=== PATIENT | male | born 1945 | race Caucasian/White ===

== ENCOUNTER → 2020-09-23 11:04 | Outpatient (BNVA) | payer MEDICARE, SELFPAY | PROVIDERS: PCP Internal Medicine; Referring Provider Internal Medicine; Visit Provider Internal Medicine | DX: J44.9 Chronic obstructive pulmonary disease, unspecified (principal); F17.200 Nicotine dependence, unspecified, uncomplicated; Z71.6 Tobacco abuse counseling | CPT/HCPCS: 99212; 99213 ==

== ENCOUNTER → 2021-02-05 11:05 | Outpatient (BNVA) | payer MEDICARE, SELFPAY | PROVIDERS: PCP Internal Medicine; Visit Provider Internal Medicine | DX: Z13.89 Encounter for screening for other disorder (principal) | CPT/HCPCS: 99212 ==

== ENCOUNTER → 2021-08-13 11:29 | Outpatient (BNVA) | payer MEDICARE, SELFPAY | PROVIDERS: PCP Internal Medicine; Visit Provider Internal Medicine | DX: J44.9 Chronic obstructive pulmonary disease, unspecified (principal); F17.210 Nicotine dependence, cigarettes, uncomplicated | CPT/HCPCS: 99212 ==

== ENCOUNTER 2021-08-17 09:18 | Outpatient (REF) | payer MEDICARE, SELFPAY ==
[2021-08-17 11:27] LABS: MANUAL DIFF FLAG NO
[2021-08-17 11:40] LABS: Basophils Percent Auto 0.8 % (0-2); Eosinophils Absolute Auto 0.2 X10*3/uL (0.0-0.4); Eosinophils Percent Auto 4.9 % (0-4); Hematocrit 34.8 % (42-52); Hemoglobin 11.9 g/dl (14.0-18.0); Imm Gran Abs Auto 0.03 X10*3/uL (0.00-0.03); Imm Gran Pct Auto 0.6 % (0.0-0.4); Lymphocytes Absolute Auto 0.9 X10*3/uL (1.2-4.9); Lymphocytes Percent Auto 18.9 % (20-40); Mean Corpuscular HGB Conc 34.2 g/dl (31.0-36.0); Mean Corpuscular Hemoglobin 31.2 pg (27.0-33.0); Mean Corpuscular Volume 91.3 fL (80-98); Mean Platelet Volume 10.1 fL (9.4-12.4); Monocytes Absolute Auto 0.5 X10*3/uL (0.1-1.2); Monocytes Percent Auto 10.9 % (2-11); Neutrophils Absolute Auto 3.1 X10*3/uL (2.0-8.3); Neutrophils Percent Auto 63.9 % (45-73); Platelet Count 261 X10*3/uL (160-400); Red Blood Count 3.81 X10*6/uL (4.60-5.80); Red Cell Distribution Width 13.3 % (11.0-16.0); White Blood Count 4.9 X10*3/uL (4.8-10.8)
[2021-08-17 14:18] LABS: Alanine Aminotransferase 13 U/L (0-40); Alkaline Phosphatase 61 U/L (39-117); Anion Gap 14 (12-20); Aspartate Amino Transferase 20 U/L (5-37); Bilirubin Total 0.4 mg/dL (0.0-1.0); Blood Urea Nitrogen 6 mg/dL (9-16); Calcium 9.6 mg/dL (8.4-10.2); Carbon Dioxide 24 mmol/L (22-29); Chloride 95 mmol/L (96-108); Cholesterol 164 mg/dL; Estimated Glomerular Filt Rate > 60; Glucose Fasting 110 mg/dL (60-99); HDL Cholesterol 72 mg/dL; LDL Cholesterol Calculated 67 mg/dl; Sodium 128 mmol/L (135-145); Total Protein 6.5 g/dL (6.5-8.0); Triglycerides 125 mg/dL
[2021-08-17 14:43] LABS: TSH reflex Free T4 2.65 uIU/mL (0.32-4.0); Vitamin D 25-OH Total 32.7 ng/mL (>30)
== END 2021-08-17 09:19 | disposition home or self-care (01) ==
LOC: HO.HMGCLDS 09:18
PROVIDERS: PCP Internal Medicine; Visit Provider Internal Medicine
DX: E78.00 Pure hypercholesterolemia, unspecified (principal); I10 Essential (primary) hypertension; E55.9 Vitamin D deficiency, unspecified
CPT/HCPCS: 36415; 80053; 80061; 82306; 84443; 85025

== ENCOUNTER 2021-08-18 | Outpatient (REF) | payer MEDICARE, SELFPAY ==
[2021-08-18 11:30] LABS: Appearance Urine CLEAR; Color Urine YELLOW; Glucose Urine UA NEG (NEG); Leukocyte Esterase Urine NEG (NEG); Nitrite Urine NEG (NEG); Urine Blood NEG (NEG); Urine Ketones NEG (NEG); Urine Protein NEG (NEG-TRACE)
== END 2021-08-18 00:01 | disposition home or self-care (01) ==
LOC: HO.HMGCLNP
PROVIDERS: Visit Provider Internal Medicine
DX: I10 Essential (primary) hypertension (principal)
CPT/HCPCS: 81003

== ENCOUNTER → 2022-02-09 10:41 | Outpatient (BNVA) | payer MEDICARE, SELFPAY | PROVIDERS: PCP Internal Medicine; Visit Provider Internal Medicine | DX: J44.9 Chronic obstructive pulmonary disease, unspecified (principal); Z79.899 Other long term (current) drug therapy; Z87.891 Personal history of nicotine dependence | CPT/HCPCS: 99212 ==

== ENCOUNTER 2022-03-03 08:46 | Outpatient (REF) | payer MEDICARE, SELFPAY ==
[2022-03-03 11:23] LABS: MANUAL DIFF FLAG NO
[2022-03-03 11:38] LABS: Appearance Urine CLEAR; Color Urine YELLOW; Glucose Urine UA NEG (NEG); Leukocyte Esterase Urine NEG (NEG); Nitrite Urine NEG (NEG); Urine Blood NEG (NEG); Urine Ketones NEG (NEG); Urine Protein NEG (NEG-TRACE)
[2022-03-03 11:41] LABS: Basophils Absolute Auto 0.1 X10*3/uL (0.0-0.2); Basophils Percent Auto 0.7 % (0-2); Eosinophils Absolute Auto 0.5 X10*3/uL (0.0-0.4); Eosinophils Percent Auto 6.6 % (0-4); Hematocrit 36.6 % (42.0-52.0); Hemoglobin 11.7 g/dl (14.0-18.0); Imm Gran Abs Auto 0.05 X10*3/uL (0.00-0.03); Imm Gran Pct Auto 0.6 % (0.0-0.4); Lymphocytes Absolute Auto 1.2 X10*3/uL (1.2-4.9); Lymphocytes Percent Auto 15.2 % (20-40); Mean Corpuscular Hemoglobin 29.2 pg (27.0-33.0); Mean Corpuscular Volume 91.3 fL (80.0-98.0); Mean Platelet Volume 10.1 fL (9.4-12.4); Monocytes Absolute Auto 0.9 X10*3/uL (0.1-1.2); Monocytes Percent Auto 10.9 % (2-11); Neutrophils Absolute Auto 5.4 x10*3/uL (2.0-8.3); Platelet Count 376 X10*3/uL (160-400); Red Blood Count 4.01 X10*6/uL (4.60-5.80); Red Cell Distribution Width 12.3 % (11.0-16.0); White Blood Count 8.2 X10*3/uL (4.8-10.8)
[2022-03-03 11:58] LABS: Alanine Aminotransferase 11 U/L (0-40); Albumin Level 4.1 g/dL (3.5-5.0); Alkaline Phosphatase 82 U/L (39-117); Anion Gap 14 (12-20); Aspartate Amino Transferase 18 U/L (5-37); Bilirubin Total 0.4 mg/dL (0.0-1.0); Blood Urea Nitrogen 9 mg/dL (9-16); Calcium 9.9 mg/dL (8.4-10.2); Carbon Dioxide 27 mmol/L (22-29); Chloride 94 mmol/L (96-108); Cholesterol 174 mg/dL; Estimated Glomerular Filt Rate > 60; Glucose Fasting 107 mg/dL (60-99); HDL Cholesterol 60 mg/dL; LDL Cholesterol Calculated 86 mg/dl; Potassium 4.5 mmol/L (3.3-5.1); Sodium 130 mmol/L (135-145); Total Protein 7.2 g/dL (6.5-8.0); Triglycerides 140 mg/dL
== END 2022-03-03 08:47 | disposition home or self-care (01) ==
LOC: HO.HMGCLDS 08:46
PROVIDERS: Visit Provider Internal Medicine
DX: I10 Essential (primary) hypertension (principal); E78.00 Pure hypercholesterolemia, unspecified; E55.9 Vitamin D deficiency, unspecified
CPT/HCPCS: 36415; 80053; 80061; 81003; 82306; 84443; 85025

== ENCOUNTER 2022-07-06 10:49 | Outpatient (REF) | payer MEDICARE, SELFPAY ==
--- NOTE | ~2022-07-06 | CT_ITS ---
EXAMINATION: CT HEAD WITHOUT CONTRAST CLINICAL INFORMATION: Hyperosmolality. Hyponatremia. COMPARISON: None. TECHNIQUE: Contiguous axial imaging was performed from the skull base to vertex without intravenous administration of contrast. This CT examination was performed using dose optimization techniques as appropriate, variously including the following: *Automated exposure control *Adjustment of mA and/or kV according to patient size (this includes techniques or standardized protocols for targeted exams where dose is matched to indication/reason for exam; i.e. extremities or head) *Use of iterative reconstruction technique DLP: 727 mGy-cm. FINDINGS: There is no evidence of acute intracranial hemorrhage or territorial infarction. No abnormal mass effect or midline shift is seen. Cole to white matter differentiation is well preserved. No extra-axial fluid collections are identified. The lateral ventricles are symmetrical in size and configuration without enlargement. The osseous structures and soft tissues are normal. The mastoid air cells and visualized portions of the paranasal sinuses are well aerated. CT/CT head/brain wo con IMPRESSION: No acute intracranial process seen. Age-related cerebral volume loss with chronic small vessel ischemic changes in both cerebral hemispheres.
== END 2022-07-06 10:50 | disposition home or self-care (01) ==
LOC: HO.CT 10:49
PROVIDERS: PCP Internal Medicine; Visit Provider Physician Assistant
DX: E87.1 Hypo-osmolality and hyponatremia (principal)
CPT/HCPCS: 70450

== ENCOUNTER → 2022-08-25 13:40 | Outpatient (BNVA) | payer MEDICARE, SELFPAY | PROVIDERS: PCP Internal Medicine; Visit Provider Internal Medicine | DX: J44.9 Chronic obstructive pulmonary disease, unspecified (principal); R05.3 Chronic cough; U09.9 Post COVID-19 condition, unspecified; Z77.22 Contact with and (suspected) exposure to environmental tobacco smoke (acute) (chronic); Z87.891 Personal history of nicotine dependence | CPT/HCPCS: 99212 ==

== ENCOUNTER → 2022-10-26 13:27 | Outpatient (BNVA) | payer MEDICARE, SELFPAY | PROVIDERS: PCP Internal Medicine; Visit Provider Internal Medicine | DX: J44.9 Chronic obstructive pulmonary disease, unspecified (principal); R05.3 Chronic cough; R00.0 Tachycardia, unspecified; U09.9 Post COVID-19 condition, unspecified; Z87.891 Personal history of nicotine dependence | CPT/HCPCS: 99212 ==

== ENCOUNTER → 2023-02-22 13:46 | Outpatient (BNVA) | payer MEDICARE, SELFPAY | PROVIDERS: PCP Internal Medicine; Visit Provider Internal Medicine | DX: J44.9 Chronic obstructive pulmonary disease, unspecified (principal); F17.200 Nicotine dependence, unspecified, uncomplicated | CPT/HCPCS: 99212 ==

== ENCOUNTER 2023-04-12 14:16 | Outpatient (AMB) | payer MEDICARE, SELFPAY ==
[2023-04-12 14:21] VITALS: BP 118/78; PULSE 80; O2SAT 93; BMI 17.7
--- NOTE | 2023-04-12 14:21 | MHC.PC.OV ---
Vital Signs 04/12/23 14:21 Height 5 ft 8 in Weight 116 lb 4 oz BMI 17.7 BP 118/78 Blood Pressure Location Lt brachial Position Sitting Pulse 80 Pulse Source Pulse Oximeter Pulse Oximetry (%) 93 Oxygen Delivery Method Room Air Intake Visit Reasons: SIADH, COPD Intake Note: Patient is here for a follow up on COPD abd SIADH. Family Independence Case Manager Required: No Accompanied by: Spouse Allergies aspirin [ASPIRIN] Allergy (Intermediate, Verified 02/02/24 04:07) SWELLING, hives Medication List - Last Reconciled 04/16/24 by Tariq Parikh MD albuterol sulfate 90 mcg/actuation (Ventolin HFA) 2 puffs PO QID PRN atorvastatin 40 mg PO BEDTIME 90 days Breo Ellipta 200-25 mcg/dose (fluticasone furoate-vilanterol) 1 ea PO DAILY NS cholecalciferol (vitamin D3) 25 mcg PO DAILY clopidogrel (Plavix) 75 mg PO DAILY 90 days hydroxyzine HCl 25 mg PO TID PRN 30 days ipratropium-albuterol 0.5 mg-3 mg(2.5 mg base)/3 mL 3 mL inhalation QID pantoprazole 40 mg PO DAILY prednisone 5 mg PO Q OTHER DAY Tobacco use date assessed: 04/12/23 Fall risk assessment: 1 Fall in past year HPI SIADH, COPD HPI Details Patient comes in today for his follow-up visit States that he feels okay but has been having problems sleeping at night for a few weeks now He denies any headaches or dizziness Denies any chest pains, no increased shortness of breath No nausea /vomiting, no abdominal pain No change in bowel habits noted He has not had any follow-up labs done recently [facility] Medical History Tachycardia determined by examination of pulse History of smoking at least 1 pack per day for at least 30 years 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) Insomnia Osteoporosis GERD without esophagitis Benign essential hypertension Smoker Smoker COPD (chronic obstructive pulmonary disease) Social History Household Members: Spouse and Family Household Members Other:: and grandson Housing: House Do you presently have visiting nurse or other home services: No Alcohol intake: current Alcohol intake frequency: 0-2 drinks per day Alcohol type: beer Patient Tobacco Use Status: Former Tobacco user e-Cigarette/Vaping Use: Never Used Second Hand Smoke Exposure: No service: No Current occupational status: retired Cognitive needs: No Hearing needs: No Vision needs: No Questionnaire PHQ-9 Over the last 2 weeks, how often have you been bothered by any of the following problems? 1. Little interest or pleasure in doing things: not at all 2. Feeling down, depressed, or hopeless: not at all 3. Trouble falling or staying asleep, or sleeping too much: not at all 4. Feeling tired or having little energy: not at all 5. Poor appetite or overeating: not at all 6. Feeling bad about yourself - or that you are a failure or have let yourself or your family down: not at all 7. Trouble concentrating on things, such as reading the newspaper or watching television: not at all 8. Moving or speaking so slowly that other people could have noticed. Or the opposite - being so fidgety or restless that you have been moving around a lot more than usual: not at all 9. Thoughts that you would be better off or of hurting yourself in some way: not at all Total score: 0 Depression Screening Interpretation: Negative [id number] - PHQ-9 Billing: Yes Source: Developed by Drs. Tushar Vargas, Marybeth Shah, Korey Bauer and colleagues, with an educational lila from [employer]. Thrive Questionnaire Date Thrive assessed: 04/12/23 I am a: Patient What is your living situation today?: I have a steady place to live Within the past 12 months, did the food you bought not last and you didn't have the money to get more?: Never true Within the past 12 months, did you worry whether your food would run out before you got money to buy more?: Never true Do you have trouble paying for medicines?: No Do you have trouble getting transportation to medical appointments?: No Do you have trouble paying your heating and electricity bill?: No Do you have trouble taking care of your child, family member or friend?: No Do you have trouble with day-to-day activities such as bathing, preparing meals, shopping, managing finances, etc.?: No Are you currently unemployed and looking for a job?: No Are you interested in more education?: No Please select the resources that you would like help with: None Currently or been in a relationship where the following occur: no concerns reported AUDIT C Alcohol Use Questionnaire (AUDIT-C) 1. How often do you have a drink containing alcohol?: 4 or more times a week 2. How many drinks containing alcohol do you have on a typical day when you are drinking?: 1 or 2 3. How often do you have six or more drinks on one occasion?: Never Total Score: 4 Score Reviewed/Action Taken: Yes ALEXUS-7 AMB Questionnaire ALEXUS-7 Date ALEXUS - 7 assessed: 04/12/23 Feeling nervous, anxious, or on edge: 0 = Not at all Not being able to stop or control worryin = Not at all Worrying too much about different things: 0 = Not at all Trouble relaxin = Not at all Being so restless that it is hard to sit still: 0 = Not at all Becoming easily annoyed or irritable: 0 = Not at all Feeling afraid as if something awful might happen: 0 = Not at all Total ALEXUS-7 score (0-4 normal; 5-9 mild; 10-14 moderate; 15-21 severe): 0 Source: Developed by Drs. Tushar Vargas, Marybeth Shah, Korey Bauer and colleagues, with an educational lila from [employer]. Review of Systems Const Denies chills, Reports difficulty sleeping, Reports fatigue, Denies fever(s) and Denies headache(s) ENT Denies dysphagia, Denies dizziness, Denies otalgia, Denies headache(s), Denies odynophagia and Denies sore throat Card Denies chest pain, Denies palpitations and Reports dyspnea on exertion (mild) Resp Denies chest congestion, Denies cough, Reports dyspnea on exertion (mild) and Denies wheezing GI Denies abdominal pain, Denies constipation, Denies dysphagia, Denies heartburn, Denies diarrhea, Denies nausea, Denies odynophagia and Denies vomiting Denies dysuria, Denies nocturia and Denies urinary frequency Musc Denies arthralgias and Reports stiffness Skin/Breast Denies rash Neuro Denies dizziness and Denies headache(s) Endo Reports fatigue and Denies palpitations Aller/Immun Denies wheezing Physical exam (Primary Care) Vital Signs: Last Vital Signs Pulse 80 04/12/23 14:21 BP 118/78 04/12/23 14:21 Pulse Ox 93 04/12/23 14:21 Oxygen Delivery Method Room Air 04/12/23 14:21 BMI result Body Mass Index 17.7 Tobacco/Smoking Status: Tobacco use Status Tobacco use date assessed 04/12/23 04/12/23 14:33 Patient Tobacco Use Status Former Tobacco user 04/12/23 14:21 e-Cigarette/Vaping Use Never Used 04/12/23 14:33 PHQ-9: PHQ-9 Score PHQ-9: Total score 0 04/12/23 15:22 Depression Screening Interpretation: Negative Thrive Assessment: Date of Thrive Assessment Date Thrive assessed 04/12/23 04/12/23 14:33 Currently or been in a relationship where the following occur: no concerns reported Const General: no acute distress and alert HENMT Ears: TM's normal bilaterally and EAC's normal Throat: Yes posterior oropharynx normal and Yes tonsils normal (no TP congestion noted) Neck Neck: Yes no lymphadenopathy and Yes supple Thyroid: Thyroid normal Resp Auscultation: no rales, rhonchi (scattered) throughout, no wheezes and diminished lung sounds bilateral Cardio Rate: regular rate Rhythm: regular rhythm Heart sounds: no murmurs GI Palpation (GI): Soft to palpation and nontender Auscultation: normal bowel sounds General: Yes no CVA tenderness Back/Spine/Pelvis Back: no CVA tenderness Skin Rashes: no rashes Extrem General: Yes no clubbing, cyanosis or edema Assessment and Plan Assessment & Plan (1) COPD (chronic obstructive pulmonary disease): Comment: THIS GENTLEMAN HAS ADVANCED CHRONIC OBSTRUCTIVE PULMONARY DISEASE , DUE TO HIS LIFELONG SMOKING. IT IS RELATIVELY STABLE AT PRESENT. LUNGS ARE CLEAR AND WELL AERATED. 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): Code(s): E22.2 - Syndrome of inappropriate secretion of antidiuretic hormone Plan: Serum sodium was at 128 mmol/L on his labs done back in July 2021 Was not able to get his follow up labs done prior to today's visit - states that he will try to get them done later this week Reinforced fluid restriction Continue Sodium Chloride tablet 1 gm TID Follow up with nephrology as scheduled (3) Benign essential hypertension: Code(s): I10 - Essential (primary) hypertension Plan: Reinforced systolic BP goal of at least 140 mm or less Continue Lisinopril 5 mg QD Will recheck his labs in 6 months for follow up (4) GERD without esophagitis: Code(s): K21.9 - Gastro-esophageal reflux disease without esophagitis Plan: Dietary restrictions reinforced Continue Omeprazole 20 mg QD (5) Osteoporosis: Comment: BMD done back in January 2018 showed (+) osteoporosis, with a t-score of -3.4 in the femoral neck area Code(s): M81.0 - Age-related osteoporosis without current pathological fracture Qualifiers: Osteoporosis type: age-related Presence of current pathological fracture: without current pathological fracture Qualified Code(s): M81.0 - Age-related osteoporosis without current pathological fracture Plan: Fall precautions reinforced Continue Vitamin D3 1000 units QD and oral calcium supplements daily (6) Insomnia: Code(s): G47.00 - Insomnia, unspecified Qualifiers: Insomnia type: unspecified Qualified Code(s): G47.00 - Insomnia, unspecified Plan: Sleep hygiene reinforced Used to take Trazodone - will start him back on Trazodone 100 mg Q HS PRN Plan Follow up in 6 months Orders: Orders Comprehensive [place]. Panel Fast 04/12/23 E78.00 - Pure hypercholesterolemia, unspecified, J44.9 - Chronic obstructive pulmonary disease, unspecified Lipid Panel 04/12/23 E78.00 - Pure hypercholesterolemia, unspecified, J44.9 - Chronic obstructive pulmonary disease, unspecified Complete Blood Count Auto Diff 04/12/23 I10 - Essential (primary) hypertension, J44.9 - Chronic obstructive pulmonary disease, unspecified TSH reflex Free T4 04/12/23 E78.00 - Pure hypercholesterolemia, unspecified, J44.9 - Chronic obstructive pulmonary disease, unspecified UA CC w/rflx Micro + Cult 04/12/23 R30.0 - Dysuria, J44.9 - Chronic obstructive pulmonary disease, unspecified Vitamin D 25-OH Total 04/12/23 E55.9 - Vitamin D deficiency, unspecified, J44.9 - Chronic obstructive pulmonary disease, unspecified Hemoglobin A1c 04/12/23 J44.9 - Chronic obstructive pulmonary disease, unspecified, R73.9 - Hyperglycemia, unspecified Complete Blood Count Auto Diff 6 Months I10 - Essential (primary) hypertension Comprehensive [place]. 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
== END 2023-04-12 15:26 | disposition home or self-care (01) ==
LOC: HO.HMGH 14:16
PROVIDERS: PCP Internal Medicine; Visit Provider Internal Medicine
DX: J44.9 Chronic obstructive pulmonary disease, unspecified (principal); E22.2 Syndrome of inappropriate secretion of antidiuretic hormone; I10 Essential (primary) hypertension; K21.9 Gastro-esophageal reflux disease without esophagitis; M81.0 Age-related osteoporosis without current pathological fracture; G47.00 Insomnia, unspecified
CPT/HCPCS: 99499

== ENCOUNTER 2023-07-06 14:20 | Outpatient (AMB) | payer MEDICARE, SELFPAY ==
[2023-07-06 14:25] VITALS: BP 120/50; PULSE 129; O2SAT 94; BMI 17.3
--- NOTE | 2023-07-06 14:25 | MHC.OFFVIS ---
Intake Vital Signs 07/06/23 14:25 Height 5 ft 8 in Weight 114 lb BMI 17.3 BP 120/50 L Blood Pressure Location Rt brachial Position Sitting Pulse 129 H Pulse Source Pulse Oximeter Pulse Oximetry (%) 94 Oxygen Delivery Method Room Air Intake Visit Reasons: COPD Intake Note: pt is here for follow up, breathing is not good, he has fallen a couple of times, his pulse was very fast. Beam Worker Required: No Allergies aspirin [ASPIRIN] Allergy (Intermediate, Verified 07/06/23 14:29) SWELLING, hives Medication List - Last Reconciled 07/06/23 by Gabriela Escobar MD albuterol sulfate 2.5 mg (6 mL) inhalation QID 30 days Breo Ellipta 200-25 mcg/dose (fluticasone furoate-vilanterol) 1 inh PO DAILY NS cholecalciferol (vitamin D3) 25 mcg PO DAILY ipratropium bromide 2.5 mL inhalation QID 30 days ipratropium-albuterol 0.5 mg-3 mg(2.5 mg base)/3 mL 3 mL inhalation QID lisinopril 5 mg PO DAILY omeprazole 20 mg PO DAILY 90 days prednisone 5 mg PO Q OTHER DAY trazodone 100 mg PO BEDTIME PRN 30 days Ventolin HFA 90 mcg/actuation (albuterol sulfate) 2 puffs PO QID NS HPI COPD HPI Details THIS 77 YEARS OLD GENTLEMAN COMES FOR FOLLOW-UP AFTER 4 MONTHS. IN GENERAL HE REMAINS WEAK, GAS TIRED EASILY AFTER WALKING. MENTALLY SLOW AND SLIGHTLY FORGETFUL. BUT HE HAS HAD NO BOUTS OF COUGH OR WHEEZING. CONTINUES TO USE BREO 200-251 INHALATION DAILY. HE WAS USING DUONEB UPDRAFTS 3 TIMES A DAY REGULARLY. COMBINATION OF IPRATROPIUM AND ALBUTEROL SOLUTION IS NOT AVAILABLE AT THE PHARMACY, SO I HAVE PRESCRIBED IPRATROPIUM SOLUTION TO BE USE Q 6 HOURS WHILE AWAKE. HE DOES HAVE ALBUTEROL HFA ON HAND, AND SUPPOSED TO USE IT P.R.N. WHEN OUTDOORS. TODAY BEFORE COMING OUT OF THE HOUSE HE DID USE ALBUTEROL 2 PUFFS, AFTER PARKING THE CAR IN THE PARKING LOT [facility], AND HE COMES IN THE EXAMINATION ROOM HIS HEART RATE IS NOTED TO BE FAST. HE DENIES ANY PALPITATIONS CHEST PAIN, OR LIGHTHEADED FEELING. 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) Tachycardia determined by examination of pulse Social History Housing: House Alcohol intake: current Alcohol intake frequency: 0-2 drinks per day Alcohol type: beer Patient Tobacco Use Status: Former Tobacco user e-Cigarette/Vaping Use: Never Used Second Hand Smoke Exposure: Yes service: No Current occupational status: retired Cognitive needs: No Hearing needs: No Vision needs: No Review of Systems Const Denies chills, Denies fatigue, Denies fever(s) and Denies headache(s) ENT Denies headache(s), Denies sinus pain and Denies sore throat Card Denies chest pain, Denies palpitations and Denies dyspnea Resp Denies cough and Denies dyspnea GI Denies abdominal pain, Denies constipation, Denies heartburn, Denies diarrhea, Denies nausea and Denies vomiting Denies dysuria and Denies nocturia Neuro Denies headache(s) Endo Denies fatigue and Denies palpitations Physical Exam Vital Signs: Last Vital Signs Pulse 129 H 07/06/23 14:25 BP 120/50 L 07/06/23 14:25 Pulse Ox 94 07/06/23 14:25 Oxygen Delivery Method Room Air 07/06/23 14:25 BMI result Body Mass Index 17.3 Const Other: He is of a thin build and appears comfortable and stable General: comfortable, no acute distress, alert and awake Orientation/consciousness: patient oriented x3 HEENT Head: Yes normal to inspection General nose exam: No nasal polyps present and No nasal discharge present Face and sinus: Yes sinuses nontender Mouth: oropharynx normal Throat: Yes posterior oropharynx normal Eyes General: appearance normal, both eyes and all related structures Neck Neck: Yes normal visual inspection, Yes no lymphadenopathy, Yes trachea midline and Yes no JVD Thyroid: Thyroid normal Chest Chest palpation & inspection: normal inspection of the chest, normal palpation of entire chest wall and no tenderness Resp Other: Percussion note hyper-resonant, breath sounds are distant with prolonged expiratory phase. No wheezes or rhonchi , and no crepitations are heard. Cardio Palpation: normal PMI Rate: regular rate and tachycardic (HR .ON WALKING IN 129 DURING EXAM SETTLED DOWN TO 118) Rhythm: regular rhythm Heart sounds: no gallops and no murmurs GI Palpation (GI): Soft to palpation, nontender, No hepatosplenomegaly present and no masses Auscultation: normal bowel sounds Back/Spine/Pelvis Thoracic/Lumbar Spine: thoracic and lumbar spine normal to inspection and thoraco-lumbar ROM limited Skin General skin exam: no rashes or lesions noted Neuro General: patient oriented x3 and no focal motor deficits Cranial nerves: Yes CN's II-XII intact bilaterally Extrem General: Yes normal to inspection, Yes no clubbing, cyanosis or edema, Yes no calf tenderness and Yes other (Legs are very thin with some muscular wasting.) Psych Appearance: grossly normal Speech and movement: Normal speech and movement present Assessment & Plan Assessment & Plan (1) COPD (chronic obstructive pulmonary disease): Comment: HE HAS MODERATELY ADVANCED CHRONIC OBSTRUCTIVE PULMONARY DISEASE,BUT IT REMAINS VERY STABLE. TX: ADVISED TO CONTINUE USING: BREO -200 1 INHALATION DAILY DUO NEB UDs QID , ( script renewed ) VENTOLIN 2 PUFFS Q 6 HOURS ONLY P.R.N..( USES ONCE OR TWICE A DAY ) ( Script renewed ) PREDNISONE 5 MG ON ALTERNATE DAYS Code(s): J44.9 - Chronic obstructive pulmonary disease, unspecified Qualifiers: COPD type: unspecified COPD Qualified Code(s): J44.9 - Chronic obstructive pulmonary disease, unspecified (2) History of smoking at least 1 pack per day for at least 30 years: Comment: HE DID HAVE HISTORY OF SMOKING FOR MORE THAN 30 YEARS BUT LUCKILY QUIT 2 YEARS AGO. Code(s): Z87.891 - Personal history of nicotine dependence (3) Tachycardia determined by examination of pulse: Comment: HEART RATE RELATIVELY FAST, PROBABLY CONTRIBUTED BY USING ALBUTEROL INHALER BEFORE COMING OUT OF THE HOUSE. AND NOW WALKING FROM THE PARKING LOT TO THE OFFICE. IT IS SETTLING DOWN SLOWLY. Code(s): R00.0 - Tachycardia, unspecified Coding Level of Care Code Est Pt Level 3 (61502) Diagnoses COPD (chronic obstructive pulmonary disease) J44.9 COPD type: unspecified COPD History of smoking at least 1 pack per day for at least 30 years Z87.891 Tachycardia determined by examination of pulse R00.0
== END 2023-07-06 14:44 | disposition home or self-care (01) ==
PROVIDERS: PCP Internal Medicine; Visit Provider Internal Medicine
DX: J44.9 Chronic obstructive pulmonary disease, unspecified (principal); Z87.891 Personal history of nicotine dependence; R00.0 Tachycardia, unspecified
CPT/HCPCS: 99213

== ENCOUNTER → 2023-07-06 14:20 | Outpatient (BNVA) | payer MEDICARE, SELFPAY | PROVIDERS: PCP Internal Medicine; Visit Provider Internal Medicine | DX: J44.9 Chronic obstructive pulmonary disease, unspecified (principal); R00.0 Tachycardia, unspecified; Z87.891 Personal history of nicotine dependence | CPT/HCPCS: 99212 ==

== ENCOUNTER 2023-09-09 17:30 | Inpatient (IN) | payer MEDICARE, SELFPAY ==
--- NOTE | ~2023-09-09 | XR_ITS ---
EXAMINATION: XR CHEST CLINICAL INFORMATION: Weakness. COMPARISON: 03/08/2017. TECHNIQUE: Frontal view of the chest was obtained. FINDINGS: The cardiomediastinal silhouette is normal. There is bilateral perihilar increased markings/bronchiectasis/bronchial thickening. There is a right upper lobe opacity. The lung carmona appear to be generally hyperinflated and hyperlucent. The bony structures are osteopenic. The soft tissues are unremarkable XR/XR chest 1V IMPRESSION: There appears to be emphysema/COPD. Bilateral perihilar increased markings/bronchial thickening/bronchiectasis probably related to COPD. Small right upper lobe opacity possibly infiltrate or scar/atelectasis.
--- NOTE | ~2023-09-09 | CT_ITS ---
EXAMINATION: CT ANGIOGRAM HEAD CT ANGIOGRAM NECK CLINICAL INFORMATION: Reason for Exam left sided weakness 24 hours ago COMPARISON: None. TECHNIQUE: Test bolus sequences followed by intravenous administration 70 mL of Omnipaque 350. Helical imaging was performed in the axial plane from the aortic arch to the skull vertex. Delayed postcontrast imaging of the head was also performed. The data was processed at the ophthalmic technologist's workstation for generation of MIP sequences. Angled MIPs and volume rendered reformatted images were also generated at an offline 3D workstation. Stenoses are assessed in accordance with Mcfarlane et al. Quantification of Carotid Stenosis on CT Angiography. AJR 2006. 27(1):13-19. [address] CT examination was performed using dose optimization techniques as appropriate, variously including the following: *Automated exposure control *Adjustment of mA and/or kV according to patient size (this includes techniques or standardized protocols for targeted exams where dose is matched to indication/reason for exam; i.e. extremities or head) *Use of iterative reconstruction technique DLP: 2105.93 mGy-cm FINDINGS: CT HEAD: Stable moderate global cerebral volume loss. Patchy periventricular and deep white matter hypoattenuation is nonspecific but most suggestive of moderate chronic microangiopathy, unchanged. No territorial loss of priest-white differentiation. No acute intracranial hemorrhage or extra-axial fluid collection. No mass lesion, significant mass effect, or herniation pattern. No pathologic intra-axial enhancement or regional oligemia. The orbits are grossly normal. Paranasal sinuses and mastoid air cells are well aerated. Osseous structures are intact. CTA HEAD: No hemodynamically significant stenosis or occlusion in the anterior or posterior circulation. Calcific plaque along the bilateral carotid siphons with mild multifocal stenosis of the cavernous and supraclinoid segments. No aneurysms and no high flow vascular malformations. 1.4 mm infundibular origin of the right posterior communicating artery arising from the communicating right ICA. Timing of the contrast bolus allows assessment of the major dural venous sinuses, which all opacify normally CTA NECK: Classic 3 vessel branching pattern of the aortic arch. Moderate partially calcified atherosclerotic disease of the aortic arch and great vessel origins. Origins of the great vessels are widely patent. The common carotid arteries are widely patent. Densely calcified atherosclerotic plaque at the bilateral carotid bifurcations contributes to mild (less than 50%) stenosis of the right greater than left ICA origins. The left vertebral artery is dominant. The vertebral artery ostia are widely patent. Both vertebral arteries are widely patent throughout their extracranial cervical course, apart from uncovertebral and facet joint hypertrophy impinging upon and mildly narrowing the left C2 vertebral artery at the level of C3-C4. CT NECK: The patient is edentulous with maxillary dentures in place. Somewhat heterogeneous thyroid gland. New partially imaged thick walled air-filled cavities within the dependent portions of the right greater than left lungs containing thick traversing septae with new adjacent patchy consolidation in the right lung apex, which could reflect sequela of prior/current infection and would be better diagnostically assessed on dedicated chest CT. Clustered right supraclavicular lymph nodes, one which is pathologically enlarged measuring 1.2 cm. Right level 5 lymph node measuring 1.1 cm demonstrating abnormal rounded morphology. Progressive partially imaged right hilar lymphadenopathy/perihilar soft tissue contiguous with parenchymal disease that encases the right upper lobe pulmonary arterial branches and increased size of precarinal lymph node measuring 1.2 cm in short axis, previously partially obscured from beam hardening artifact. Multilevel advanced cervical spondylosis. CT/CT angio head neck IMPRESSION: 1. No acute intracranial findings. Stable moderate global volume loss and moderate chronic microangiopathy. 2. No acute arterial occlusion or hemodynamically significant stenosis within the head or neck. Atherosclerosis contributes to mild (less than 50%) stenosis of the right greater than left ICA origins. 3. New partially imaged thick walled air-filled cavities within the dependent portions of the right greater than left lungs containing thick traversing septae with new adjacent patchy consolidation in the right lung apex, which could reflect sequela of prior/current infection. Progressive partially imaged right hilar lymphadenopathy/perihilar soft tissue contiguous with parenchymal disease encasing right upper lobe pulmonary arterial branches and increased mediastinal adenopathy. Further evaluation of these findings with dedicated chest CT is advised. 4. Nonspecific clustered right supraclavicular lymph nodes, one which is pathologically enlarged measuring 1.2 cm and right level 5 lymphadenopathy measuring 1.1 cm demonstrating abnormal rounded morphology. No superficial pharyngeal mucosal mass or laryngeal lesion identified. Findings were communicated to Dr Valera on 09/09/2013 at 8:00 PM.
--- NOTE | ~2023-09-09 | MR_ITS ---
EXAMINATION: MR BRAIN WITHOUT CONTRAST CLINICAL INFORMATION: Left-sided weakness COMPARISON: CTA head and neck 09/09/2023 TECHNIQUE: Multiplanar multisequence MR imaging of the brain was obtained without intravenous contrast. FINDINGS: There is no acute infarct on diffusion-weighted imaging. There is no intracranial hemorrhage on iron-sensitive imaging. No extra-axial collection or mass effect/herniation. Scattered periventricular and deep white matter T2 FLAIR hyperintensities consistent with mild underlying microangiopathy. No hydrocephalus. Mild to moderate generalized volume loss with commensurate sulcal and ventricular prominence. The major flow voids at the skull base are preserved. The midline structures are normal. The cerebellar tonsils are normally positioned. The craniocervical junction is normal. Marrow signal is within normal limits. The visualized soft tissues are without significant abnormality. No signal abnormality within the paranasal sinuses or within the mastoid air cells. MR/MR head/brain wo con IMPRESSION: No acute infarct or other acute intracranial abnormality.
--- NOTE | ~2023-09-09 | CT_ITS ---
EXAMINATION: CT CHEST WITHOUT CONTRAST CLINICAL INFORMATION: Cavitary pneumonia. COMPARISON: CTA chest 02/14/2017 TECHNIQUE: Multidetector volumetric CT imaging of the chest was done. Axial MIP volume rendering provided. Sagittal and coronal reformatted images were obtained. This CT examination was performed using dose optimization techniques as appropriate, variously including the following: *Automated exposure control *Adjustment of mA and/or kV according to patient size (this includes techniques or standardized protocols for targeted exams where dose is matched to indication/reason for exam; i.e. extremities or head) *Use of iterative reconstruction technique DLP: 148 mGy-cm FINDINGS: LOCK EXPERT: Hyperinflated lungs. LUNGS: There is diffuse centrilobular and paraseptal emphysema. There is a large cavitary lesion surrounded by thick wall in right upper lobe adjacent to this cavitary area and medial aspect is a consolidation with air bronchogram right upper lobe likely chronic scarring with mild bronchiectasis and/or pneumonic infiltrate. Patchy airspace disease is seen in the right lower lobe posterior basal segment with adjacent nodular appearing densities seen. There is a cavitary lesion in the left lower lobe posterior basal segment with adjacent parenchymal opacity likely chronic scarring. There are small cavitary lesions and tree-in-bud appearance in the right middle lobe. Scattered pulmonary nodules are seen in the right middle lobe measuring 4-5 mm on axial slice 28/8. MEDIASTINUM: Thyroid lobes are symmetric and normal. The central trachea and the bronchi widely patent. There are reactionary lymph nodes in the precarinal space measuring 1.2 cm on axial slice 21/8. CORONARY ARTERY CALCIFICATION: None visualized on this study. PLEURA: There is small bilateral pleural effusions without calcified pleural plaques. AXILLA: No lymphadenopathy. UPPER ABDOMEN: Visualized liver, spleen, pancreas and bilateral adrenal glands are unremarkable. OSSEOUS STRUCTURES: No aggressive lytic or sclerotic process seen. CT/CT chest wo IV con IMPRESSION: 1. Diffuse centrilobular and paraseptal emphysema. 2. There is a large cavitary thick-walled lesion in the right upper lobe. Adjacent to this cavity is consolidation with air bronchogram in the right upper lobe likely chronic scarring with mild bronchiectasis and/or pneumonic infiltrate. 3. There is a cavitary lesion in the left lower lobe posterior basal segment with adjacent parenchymal opacity likely chronic scarring. The cavity appears septated. 4. There is patchy airspace disease in the right lower lobe posterior basal segment with adjacent nodular densities. 5. There are small bilateral pleural effusions. 6. There are reactionary lymph nodes in the precarinal space measuring 1.2 cm. Overall the findings have progressed since previous CTA chest 02/14/2017 with large cavitary thick-walled lesions in both lungs and a smaller cavitary lesions in the right middle lobe. Small pulmonary nodules seen previously are stable. There are multiple pulmonary nodules in the right middle lobe at this time. Atelectasis in the lingula seen previously has resolved. Fleischner guidelines were followed.
[2023-09-09 17:56] VITALS: BP 90/57; PULSE 110; RESP 17; TEMP 36.1; O2SAT 97; BMI 16.9
--- NOTE | 2023-09-09 17:57 | ED_ITS ---
HPI - General Adult General Chief complaint: Neuro Symptoms/Deficit Stated complaint: ?Stroke Time Seen by Provider: 09/09/23 18:24 Source: patient and family Mode of arrival: ambulatory Limitations: no limitations History of Present Illness HPI narrative: yesterday patient was lethargic, and he had left sided weakness. There was some confusion. This morning he was back to himself. Onset (ago): day(s) Severity: moderate Related Data Home Medications Medication Instructions Recorded Confirmed cholecalciferol (vitamin D3) 25 25 mcg PO DAILY 02/22/23 mcg (1,000 unit) capsule Previous Rx's Medication Instructions Recorded ipratropium 0.5 mg-albuterol 3 mg 3 ml inhalation QID #360 mL 12/07/22 (2.5 mg base)/3 mL nebulization soln omeprazole 20 mg capsule,delayed 20 mg PO DAILY 90 days #90 caps 02/14/23 release Ventolin HFA 90 mcg/actuation 2 puff PO QID #18 ea 04/18/23 aerosol inhaler (albuterol sulfate) trazodone 100 mg tablet 100 mg PO BEDTIME PRN insomnia 30 06/14/23 days #30 tabs lisinopril 5 mg tablet 5 mg PO DAILY #90 tabs 06/21/23 albuterol sulfate 1.25 mg/3 mL 2.5 mg (6 mL) inhalation QID 30 06/28/23 solution for nebulization days #720 mL ipratropium bromide 0.02 % 2.5 ml inhalation QID copd 30 days 06/28/23 solution for inhalation #300 mL Breo Ellipta 200 mcg-25 mcg/dose 1 inh PO DAILY #60 ea 07/11/23 powder for inhalation (fluticasone furoate-vilanterol) prednisone 5 mg tablet 5 mg PO Q OTHER DAY #14 tabs 08/02/23 Allergies Allergy/AdvReac Type Severity Reaction Status Date / Time aspirin [ASPIRIN] Allergy Intermediate SWELLING, Verified 07/06/23 14:29 hives Review of Systems 2 Review of Systems: Yes all other systems are reviewed and are negative Neurologic: Denies Sensory deficit (Neuro) PMFSH Past Medical History Medical History Tachycardia determined by examination of pulse History of smoking at least 1 pack per day for at least 30 years 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) Insomnia Osteoporosis GERD without esophagitis Benign essential hypertension Smoker Smoker COPD (chronic obstructive pulmonary disease) Social History Social History Housing: House Alcohol intake: current Alcohol intake frequency: 0-2 drinks per day Alcohol type: beer Patient Tobacco Use Status: Former Tobacco user Smoked in Last 30 Days: No e-Cigarette/Vaping Use: Never Used Second Hand Smoke Exposure: Yes Use of substances other than those prescribed or required for medical reasons: No Advance Directives: No Advance Directives Information Provided: No service: No Current occupational status: retired Cognitive needs: No Hearing needs: No Vision needs: No Physical Exam ED Vital Signs: Vital Signs - 24 hr 09/09/23 17:56 09/09/23 18:44 09/09/23 18:46 Temperature 97.0 F Pulse Rate 110 H 110 H 113 H Respiratory Rate 17 Blood Pressure 90/57 L 106/60 104/69 Pulse Oximetry 97 Oxygen Delivery Method Room Air 09/09/23 18:48 09/09/23 19:57 Temperature Pulse Rate 120 H 101 H Respiratory Rate 17 Blood Pressure 90/54 L 107/62 Pulse Oximetry 97 Oxygen Delivery Method Room Air BMI result Body Mass Index 16.9 Const Other: frail elderly male Nutritional Appearance: cachectic Orientation/consciousness: oriented to person Limitations: no limitations HENMT Head: Yes normal to inspection Ears: external ears normal General nose exam: Normal external nose present Mouth: Normal oral and palatal mucosa present and oropharynx normal Throat: Yes posterior oropharynx normal Eyes General: appearance normal, both eyes and all related structures Neck Neck: Yes normal visual inspection Chest Chest palpation & inspection: normal inspection of the chest Resp Other: distant breath sounds Auscultation: clear to auscultation bilaterally Cardio Jugular venous distension: no JVD Rate: tachycardic Rhythm: regular rhythm Heart sounds: S1 normal heart sound present and S2 normal heart sound present GI Inspection: Yes normal to inspection Palpation (GI): Soft to palpation, nontender and No hepatosplenomegaly present Auscultation: normal bowel sounds General: Yes no CVA tenderness Back/Spine/Pelvis Back: no CVA tenderness Skin General skin exam: no rashes or lesions noted Neuro General: oriented to person Cranial nerves: Yes CN's II-XII intact bilaterally Motor exam (neuro): 5/5 motor strength present throughout Sensory Exam: No Sensory deficit (Neuro) Extrem General: Yes normal to inspection Psych Appearance: grossly normal Course Course Course Narrative: RME- 78 year old male with past medical history significant for COPD presents for evaluation of weakness. Around 24 hours ago, the patient had an episode of left sided weakness and he was unable to stand because of it. Family deny that he had any facial droop or difficulty speaking. Current NIH stroke score of 0. Patient denies any signs or symptoms today except for generalized weakness. He called his doctor today who referred him here to rule out a stroke. Plan for labs and CT brain. Reevaluation(s) Reevaluation #1: Patient presents with a story of left sided weakness but back to normal, NIH 0, he has diffuse weakness, his xry shows chronic changes and his CT of his head and neck show no infarction but the apex of the lungs show infiltrate, his WBC is elevated will admit for pneumonia. This patient does not appear to be septic despite his elevated lactic acidosis and his elevated WBC. He is well perfused and not currently hypotensive with normal skin perfusion Time: 20:09 Reevaluation #2: I spent 40 minutes of critical care, with interventions, assessments, speaking to patient, consultants, and family. Time: 21:11 Medications Administered Generic Name Dose Route Start Last Admin Trade Name Freq PRN Reason Stop Dose Admin Sodium Chloride 1,000 mls @ 999 mls/hr 09/09/23 20:15 09/09/23 20:16 Ns IVCONT 09/09/23 22:15 999 mls/hr .Q1H1M DAMIEN Administration Azithromycin 500 mg/ Sodium 250 mls @ 125 mls/hr 09/09/23 20:03 09/09/23 20:58 Chloride IV 09/09/23 22:02 125 mls/hr ONCE ONE Administration Discontinued Medications Generic Name Dose Route Start Last Admin Trade Name Freq PRN Reason Stop Dose Admin Ceftriaxone Sodium 1 gm/ 50 mls @ 100 mls/hr 09/09/23 20:03 09/09/23 21:02 Sodium Chloride IV 09/09/23 20:32 Infused ONCE ONE Infusion Iohexol 100 ml 09/09/23 19:20 09/09/23 19:24 Iohexol 350 Mg/Ml 100 Ml Infus..Btl IV 09/09/23 19:21 70 ml ONCE ONE Administration Medical Decision Making Differential Diagnosis Differential Diagnoses: The differential diagnosis associated with the presentation includes (CVA, TIA, brain mass, COPD, pneumonia) Admission/Observation Consideration of admission/observation: Escalation of care including admission/observation considered (upon arrival patient was considered for admission) Consult Healthcare Provider Management of the patient was discussed with: Hospitalist Lab Data MDM Lab Attestation statement: I reviewed the patient's lab results. (Patient with elevated wBC and is dry based on his BUN) 09/09/23 18:23 09/09/23 18:23 Labs: Lab Results 09/09/23 Range/Units 18:23 WBC 15.6 H (4.8-10.8) X10*3/uL RBC 3.95 L (4.60-5.80) X10*6/uL Hgb 10.3 L (14.0-18.0) g/dl Hct 31.9 L (42.0-52.0) % MCV 80.8 (80.0-98.0) fL MCH 26.1 L (27.0-33.0) pg MCHC 32.3 (31.0-36.0) g/dl RDW 14.9 (11.0-16.0) % Plt Count 363 (160-400) X10*3/uL MPV 9.6 (9.4-12.4) fL Immature Gran % (Auto) 0.6 H (0.0-0.4) % Neut % (Auto) 88.7 H (45-73) % Lymph % (Auto) 3.1 L (20-40) % [place] % (Auto) 5.1 (2-11) % Eos % (Auto) 2.2 (0-4) % Baso % (Auto) 0.3 (0-2) % Lymph # (Auto) 0.5 L (1.2-4.9) X10*3/uL [place] # (Auto) 0.8 (0.1-1.2) X10*3/uL Eos # (Auto) 0.3 (0.0-0.4) X10*3/uL Baso # (Auto) 0.0 (0.0-0.2) X10*3/uL Abs Immat Gran (auto) 0.09 H (0.00-0.03) X10*3/uL Absolute Neuts (auto) 13.9 H (2.0-8.3) x10*3/uL Absolute Nucleated RBC 0.000 (0.0-0.012) X10*3/uL Nucleated RBC % (auto) 0.0 (0.0-0.2) /100WBC PT 11.3 (11.1-13.3) SEC INR 0.9 (0.9-1.1) APTT 28.1 (26.0-36.4) SEC Sodium 130 L (135-145) mmol/L Potassium 4.4 (3.3-5.1) mmol/L Chloride 96 (96-108) mmol/L Carbon Dioxide 20 L (22-29) mmol/L Anion Gap 18 (12-20) BUN 30 H (9-16) mg/dL Creatinine 1.16 (0.5-1.4) mg/dL Estim Creat Clear Calc 37.9 Estimated GFR > 60 Random Glucose 124 H (60-115) mg/dL Lactic Acid 3.8 H* (0.5-2.0) mmol/L Calcium 9.9 (8.4-10.2) mg/dL Total Bilirubin 0.2 (0.0-1.0) mg/dL AST 27 (5-37) U/L ALT 12 (0-40) U/L Alkaline Phosphatase 74 (39-117) U/L Troponin I High Sens 33.0 (<3.5-35.0) ng/L Total Protein 7.5 (6.5-8.0) g/dL Albumin 3.5 (3.5-5.0) g/dL Lipase 10 (8-78) U/L Urine Color Dark Yellow Urine Appearance Clear Urine pH 5.5 (5.0-9.0) Ur Specific [place] 1.025 (1.005-1.025) Urine Protein 30 (1+) H (Neg-Trace) mg/dL Urine Glucose (UA) Negative (Negative) mg/dL Urine Ketones Negative (Negative) mg/dL Urine Blood Negative (Negative) Urine Nitrite Negative (Negative) Ur Leukocyte Esterase Trace H (Negative) Urine RBC 3-5 H (0-2) /HPF Urine WBC 0-5 (0-5) /HPF Ur Squamous Epith Cells 0-2 (0-2) /HPF Urine Bacteria None Seen (None Seen) Hyaline Casts >20 (0-2) /LPF Independent Interpretation I performed an independent interpretation of an: EKG (sinus tachycardia rate [address] or twave changes), Plain X-Ray (chronic interstitial changes) and CT Scan (Brain: no bleed or edema) Radiology Impression Discussion of test interpretation with radiology: I have reviewed the radiologist's reading. (no LVO, infiltrate in apex of lung) Independent Historian Clinical information obtained from an independent historian. History obtained from or confirmed by: Spouse Tests considered The following testing was considered but not selected: MRI of brain considered but patient currently nonfocal Chronic Conditions Patient?s care impacted by: Other (COPD) Discharge Plan Discharge Clinical Impression: Transient cerebral ischemia, Pneumonia Patient Disposition: Admitted As Inpatient
--- NOTE | 2023-09-09 17:58 | ECG_ITS ---
Test Reason : weakness Blood Pressure : / mmHG Vent. Rate : 109 BPM Atrial Rate : 109 BPM P-R Int : 156 ms QRS Dur : 082 ms QT Int : 324 ms P-R-T Axes : 075 065 066 degrees QTc Int : 436 ms Poor data quality Sinus tachycardia with Premature atrial complexes with Sinus Arrhythmia Low voltage QRS RSR' or QR pattern in V1 suggests right ventricular conduction delay Borderline ECG When compared with ECG of 22-FEB-2017 17:18, Premature atrial complexes are now Present Referred By: Luke Wilkinson Electronically Signed By:KRYSTLE MCLAIN MD
[2023-09-09 18:35] LABS: MANUAL DIFF FLAG NO
[2023-09-09 18:40] LABS: Basophils Percent Auto 0.3 % (0-2); Eosinophils Absolute Auto 0.3 X10*3/uL (0.0-0.4); Eosinophils Percent Auto 2.2 % (0-4); Hematocrit 31.9 % (42.0-52.0); Hemoglobin 10.3 g/dl (14.0-18.0); Imm Gran Abs Auto 0.09 X10*3/uL (0.00-0.03); Imm Gran Pct Auto 0.6 % (0.0-0.4); Lymphocytes Absolute Auto 0.5 X10*3/uL (1.2-4.9); Lymphocytes Percent Auto 3.1 % (20-40); Mean Corpuscular HGB Conc 32.3 g/dl (31.0-36.0); Mean Corpuscular Hemoglobin 26.1 pg (27.0-33.0); Mean Corpuscular Volume 80.8 fL (80.0-98.0); Mean Platelet Volume 9.6 fL (9.4-12.4); Monocytes Absolute Auto 0.8 X10*3/uL (0.1-1.2); Monocytes Percent Auto 5.1 % (2-11); Neutrophils Absolute Auto 13.9 x10*3/uL (2.0-8.3); Neutrophils Percent Auto 88.7 % (45-73); Platelet Count 363 X10*3/uL (160-400); Red Blood Count 3.95 X10*6/uL (4.60-5.80); Red Cell Distribution Width 14.9 % (11.0-16.0); White Blood Count 15.6 X10*3/uL (4.8-10.8)
[2023-09-09 18:41] LABS: Appearance Urine Clear; Color Urine Dark Yellow; Glucose Urine UA Negative (Negative); Leukocyte Esterase Urine Trace (Negative); Nitrite Urine Negative (Negative); PH 5.5 (5.0-9.0); Specific Gravity - Urine 1.025 (1.005-1.025); UMIC TRIGGER UACC YES; Urine Blood Negative (Negative); Urine Ketones Negative (Negative); Urine Protein 30 (1+) mg/dL (Neg-Trace)
[2023-09-09 18:44] VITALS: BP 106/60; PULSE 110
[2023-09-09 18:44] LABS: INTERNATIONAL NORM RATIO 0.9 (0.9-1.1); Prothrombin Time 11.3 SEC (11.1-13.3)
[2023-09-09 18:46] VITALS: BP 104/69; PULSE 113
[2023-09-09 18:46] LABS: Partial Thromboplastin Time 28.1 SEC (26.0-36.4)
[2023-09-09 18:48] VITALS: BP 90/54; PULSE 120
--- NOTE | 2023-09-09 18:49 | PC.NURSE ---
pt aox4, ambulatory with assist. reports that yesterday there was a bout of left sided weakness and confusion, such as patient chewing pills he would not normally chew. is vague about timing and symptoms. Labs drawn in triage iv inserted for CT angio XR with patient now.
[2023-09-09 18:54] LABS: Alanine Aminotransferase 12 U/L (0-40); Albumin Level 3.5 g/dL (3.5-5.0); Alkaline Phosphatase 74 U/L (39-117); Anion Gap 18 (12-20); Aspartate Amino Transferase 27 U/L (5-37); Bilirubin Total 0.2 mg/dL (0.0-1.0); Blood Urea Nitrogen 30 mg/dL (9-16); Calcium 9.9 mg/dL (8.4-10.2); Carbon Dioxide 20 mmol/L (22-29); Chloride 96 mmol/L (96-108); Creatinine Clr Calc Pharmacy 37.9; Estimated Glomerular Filt Rate > 60; Glucose Random 124 mg/dL (60-115); Lipase 10 U/L (8-78); Potassium 4.4 mmol/L (3.3-5.1); Sodium 130 mmol/L (135-145); Total Protein 7.5 g/dL (6.5-8.0)
[2023-09-09 19:03] LABS: Lactic Acid 3.8 mmol/L (0.5-2.0)
[2023-09-09] MEDS: iohexoL 350 MG/ML 100 ML INFUS..BTL IV (19:24)
[2023-09-09 19:57] VITALS: BP 107/62; PULSE 101; RESP 17; O2SAT 97
--- NOTE | 2023-09-09 20:02 | PC.NURSE ---
pt resting comfortably with at bedside. pt and wanting to know how much longer they will be here, requesting to leave.
[2023-09-09] MEDS: 0.9 % Sodium Chloride 1,000 ML 999 ML IVCONT ×2 (20:16→21:40)
[2023-09-09] MEDS: cefTRIAXone sodium 1 GM in 0.9 % Sodium Chloride 50 ML IV (20:16)
[2023-09-09 20:27] LABS: Bacteria Urine None Seen (None Seen); Hyaline Casts Urine >20 /LPF (0-2); Squamous Epithelial Cell Urine 0-2 /HPF (0-2); WBC Urine 0-5 /HPF (0-5)
[2023-09-09 20:34] LABS: Reflex Lactate? Lactic Acid Added
[2023-09-09] MEDS: Azithromycin 500 MG in 0.9 % Sodium Chloride 250 ML 125 MG IV (20:58)
--- NOTE | 2023-09-09 21:25 | PM.IMHP ---
History of Present Illness Date of Service: 09/09/23 Chief Complaint: Lethargy This is a 78-year-old male with pertinent history of essential hypertension, gastroesophageal reflux disease, COPD who presents to the emergency department for generalized weakness. Patient states that about 1 day prior to presentation he felt like his left side of the body was weak. He could not lift his left leg. This lasted for a while but resolved. No loss of consciousness, jerking movement of extremities, tongue bite. No fever or chills. Patient states he also has been having a cough with purulent sputum production. No fever, chills, nausea, vomiting, shortness of breath, palpitations, chest discomfort, abdominal pain, changes in urinary bowel habits. In the emergency department, imaging with cavitary lung lesions and patient was found to be septic. Review of Systems Constitutional: Constitutional: Reports fatigue and Reports lethargy Cardiovascular: Cardiovascular: Reports no additional cardiovascular complaints Respiratory: Respiratory: Reports cough Gastrointestinal: Gastrointestinal: Reports no additional gastrointestinal complaints Genitourinary: Genitourinary: Reports no additional male genitourinary complaints Neurologic: Reports focal weakness Endocrine: Endocrine: Reports fatigue [facility] Medical History Tachycardia determined by examination of pulse History of smoking at least 1 pack per day for at least 30 years 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) Insomnia Osteoporosis GERD without esophagitis Benign essential hypertension Smoker Smoker COPD (chronic obstructive pulmonary disease) Social History Housing: House Alcohol intake: current Alcohol intake frequency: 0-2 drinks per day Alcohol type: beer Patient Tobacco Use Status: Former Tobacco user Smoked in Last 30 Days: No e-Cigarette/Vaping Use: Never Used Second Hand Smoke Exposure: Yes Use of substances other than those prescribed or required for medical reasons: No Advance Directives: No Advance Directives Information Provided: No Nutrition Risks: No Nutritional Risk service: No Current occupational status: retired Cognitive needs: No Hearing needs: No Vision needs: No Meds Allergies Allergy/AdvReac Type Severity Reaction Status Date / Time aspirin [ASPIRIN] Allergy Intermediate SWELLING, Verified 07/06/23 14:29 hives Active Medications: Current Medications Sodium Chloride (Ns) 1,000 mls @ 999 mls/hr IVCONT .Q1H1M DAMIEN Stop: 09/09/23 22:15 Last Admin: 09/09/23 20:16 Dose: 999 mls/hr Azithromycin 500 mg/ Sodium (Chloride) 250 mls @ 125 mls/hr IV ONCE ONE Stop: 09/09/23 22:02 Last Admin: 09/09/23 20:58 Dose: 125 mls/hr Home Medications Medication Instructions Recorded Confirmed Last Taken Type cholecalciferol (vitamin D3) 25 25 mcg PO DAILY 02/22/23 09/09/23 09/09/23 History mcg (1,000 unit) capsule albuterol sulfate 90 mcg/actuation 2 puff inhalation QID PRN Wheezing 09/09/23 09/09/23 Unknown History aerosol inhaler (Ventolin HFA) Physical Exam Vital Signs and Narrative: Vital Signs: Last Vital Signs Temp 97.0 F 09/09/23 17:56 Pulse 101 H 09/09/23 19:57 Resp 17 09/09/23 19:57 BP 107/62 09/09/23 19:57 Pulse Ox 97 09/09/23 19:57 O2 Del Method Room Air 09/09/23 19:57 BMI result Body Mass Index 16.9 Elderly male lying in bed in no distress Neck supple, no JVD Regular rate and rhythm, S1-S2 heard Bilateral crackles without wheezing Abdomen soft nontender, no guarding, no rigidity Patient is awake, alert and oriented to self, place, time and person ; no focal motor deficit Psych: Normal mood No pedal edema Results Labs 09/09/23 18:23 09/09/23 18:23 Labs: Laboratory Results - last 24 hr 09/09/23 18:23 MCV 80.8 MCH 26.1 L MCHC 32.3 RDW 14.9 Plt Count 363 MPV 9.6 Immature Gran % (Auto) 0.6 H Neut % (Auto) 88.7 H Lymph % (Auto) 3.1 L [place] % (Auto) 5.1 Eos % (Auto) 2.2 Baso % (Auto) 0.3 Lymph # (Auto) 0.5 L [place] # (Auto) 0.8 Eos # (Auto) 0.3 Baso # (Auto) 0.0 Abs Immat Gran (auto) 0.09 H Absolute Neuts (auto) 13.9 H Absolute Nucleated RBC 0.000 Nucleated RBC % (auto) 0.0 PT 11.3 INR 0.9 APTT 28.1 Anion Gap 18 Estim Creat Clear Calc 37.9 Estimated GFR > 60 Random Glucose 124 H Lactic Acid 3.8 H* Calcium 9.9 Total Bilirubin 0.2 AST 27 ALT 12 Alkaline Phosphatase 74 Total Protein 7.5 Albumin 3.5 Lipase 10 Urine Color Dark Yellow Urine Appearance Clear Urine pH 5.5 Ur Specific [place] 1.025 Urine Protein 30 (1+) H Urine Glucose (UA) Negative Urine Ketones Negative Urine Blood Negative Urine Nitrite Negative Ur Leukocyte Esterase Trace H Urine RBC 3-5 H Urine WBC 0-5 Ur Squamous Epith Cells 0-2 Urine Bacteria None Seen Hyaline Casts >20 Imaging Radiologist's Impressions: Impressions Chest X-Ray 09/09/23 18:51 IMPRESSION: There appears to be emphysema/COPD. Bilateral perihilar increased markings/bronchial thickening/bronchiectasis probably related to COPD. Small right upper lobe opacity possibly infiltrate or scar/atelectasis. Head/Neck CTA 09/09/23 19:26 IMPRESSION: 1. No acute intracranial findings. Stable moderate global volume loss and moderate chronic microangiopathy. 2. No acute arterial occlusion or hemodynamically significant stenosis within the head or neck. Atherosclerosis contributes to mild (less than 50%) stenosis of the right greater than left ICA origins. 3. New partially imaged thick walled air-filled cavities within the dependent portions of the right greater than left lungs containing thick traversing septae with new adjacent patchy consolidation in the right lung apex, which could reflect sequela of prior/current infection. Progressive partially imaged right hilar lymphadenopathy/perihilar soft tissue contiguous with parenchymal disease encasing right upper lobe pulmonary arterial branches and increased mediastinal adenopathy. Further evaluation of these findings with dedicated chest CT is advised. 4. Nonspecific clustered right supraclavicular lymph nodes, one which is pathologically enlarged measuring 1.2 cm and right level 5 lymphadenopathy measuring 1.1 cm demonstrating abnormal rounded morphology. No superficial pharyngeal mucosal mass or laryngeal lesion identified. Findings were communicated to Dr Valera on 09/09/2013 at 8:00 PM. Assessment and Plan (1) Pneumonia: Status: Acute (2) Sepsis: Status: Acute Plan This is a 78-year-old male with pertinent history of essential hypertension, gastroesophageal reflux disease, COPD who presents to the emergency department for generalized weakness. #. Sepsis due to lung infection. Resuscitated with IV crystalloids. Initiating empiric IV antibiotics. Blood culture and sputum culture obtained. Imaging with bilateral cavitary lung lesions. Consulting Pulmonary #. Acute lactic acidosis due to sepsis. Resolved with crystalloid resuscitation #. Transient left-sided weakness, ? TIA. Patient given aspirin in the ER. ABCD2 score 5. Will obtain MRI and consult Neurology. CTA without acute abnormality #. Essential hypertension. Hold antihypertensives in the setting of sepsis #. Gastroesophageal reflux disease: On PPI #. COPD: No exacerbation during admission. Continue home inhalers Med rec pending DVT prophylaxis: Lovenox Full code. Discussed with patient at bedside Admit as inpatient and will require two night minimum hospital stay for IV antibiotics Time Spent With Patient Time: Total time managing care of this patient today ____ minutes. Quality Stroke Does the patient have a stroke diagnosis?: No VTE Prior VTE?: No VTE Risk Level:: Medical - moderate - high VTE Device Contraindication: Treatment Not Indicated VTE Drug Contraindication: N/A - Med Ordered
[2023-09-09 21:30] VITALS: BP 144/85; PULSE 93; RESP 16; TEMP 36.6; O2SAT 98
[2023-09-09] MEDS: Aspirin Enteric Coated 81 MG TABLET.DR 162 MG PO (21:38)
--- NOTE | 2023-09-09 21:53 | PHA.MEDREC ---
Pharmacy Consult ? Medication Reconciliation Pharmacy has completed the medication reconciliation. Patient states he no longer takes trazodone
--- NOTE | 2023-09-09 21:53 | PC.NURSE ---
spoke with pt's to update her on the plan for admission for pneumonia
[2023-09-09 21:54] LABS: ~Lactic Acid-LAB USE ONLY 0.8 mmol/L (0.5-2.0)
--- NOTE | 2023-09-09 21:58 | MHC.EDTECH ---
Patient belonging list done
[2023-09-09] MEDS: Enoxaparin Sodium 40 MG/0.4 ML SYRINGE SUBCUT (22:46)
[2023-09-09] MEDS: 0.9 % Sodium Chloride Flush 3 ML SYRINGE IVFLUSH (23:58)
[2023-09-10] VITALS (9 sets, daily range): BP systolic 100–159; BP diastolic 60–78; PULSE 83–110; RESP 16–18; TEMP 36–36.7; O2SAT 93–96
[2023-09-10] MEDS: Piperacillin Sodium/Tazobactam 4.5 GM in 0.9 % Sodium Chloride 100 ML IV ×2 (01:09→08:52)
--- NOTE | 2023-09-10 01:20 | PC.NURSE ---
report given to RN, wetlands technician will transport upstairs
[2023-09-10] MEDS: Albuterol/Iprat 2.5/0.5MG 3 ML AMPUL.NEB INHALE ×3 (01:59→21:12)
[2023-09-10] MEDS: vancomycin HCL 1,000 MG in 0.9 % Sodium Chloride 250 ML 270 MG IV (03:02)
[2023-09-10 06:15] LABS: MANUAL DIFF FLAG NO
--- NOTE | 2023-09-10 06:22 | PHA.PROG ---
Addendum entered by Jeremiah Mcdonald [facility] 09/10/23 09:14: DOSE CHANGED TO 1250 Q 24 RENAL FUNCTION IMPROVED Original Note: Admission Date/Time: September 09, 2023 21:45 Indication: RESP Weight in k.3 kg Serum Creatinine - Last 168 Hours 09/09/23 18:23 Creatinine 1.16 Estimated CrCl and GFR - Last 168 Hours 09/09/23 18:23 Estim Creat Clear Calc 37.9 Estimated GFR > 60 Vancomycin Loading Dose: 1000 Current Vancomycin Dosing Regimen: 1000 Q 24 Vancomycin Monitoring using AUC goal of 400 - 600 range with trough as surrogate marker: 524 Date and Time for next Vancomycin Level to be drawn: 09/11 @ 2100 Pharmacist Comments on Vancomycin Plan: Vancomycin dosing will take advantage of [employer] as a clinical decision support tool that uses Bayesian modeling to calculate individual patient's pharmacokinetic parameters and forecast the patient's drug concentration time course with the target goal AUC 24 range of 400 - 600 mg/L/hr.
[2023-09-10 06:38] LABS: Basophils Percent Auto 0.2 % (0-2); Eosinophils Absolute Auto 0.2 X10*3/uL (0.0-0.4); Eosinophils Percent Auto 2.8 % (0-4); Hematocrit 27.1 % (42.0-52.0); Hemoglobin 8.6 g/dl (14.0-18.0); Imm Gran Abs Auto 0.05 X10*3/uL (0.00-0.03); Imm Gran Pct Auto 0.6 % (0.0-0.4); Lymphocytes Absolute Auto 0.5 X10*3/uL (1.2-4.9); Lymphocytes Percent Auto 5.7 % (20-40); Mean Corpuscular HGB Conc 31.7 g/dl (31.0-36.0); Mean Corpuscular Volume 81.9 fL (80.0-98.0); Monocytes Absolute Auto 0.5 X10*3/uL (0.1-1.2); Monocytes Percent Auto 6.6 % (2-11); Neutrophils Absolute Auto 6.9 x10*3/uL (2.0-8.3); Neutrophils Percent Auto 84.1 % (45-73); Platelet Count 326 X10*3/uL (160-400); Red Blood Count 3.31 X10*6/uL (4.60-5.80); Red Cell Distribution Width 15.2 % (11.0-16.0); White Blood Count 8.2 X10*3/uL (4.8-10.8)
[2023-09-10 06:39] LABS: Anion Gap 12 (12-20); Blood Urea Nitrogen 19 mg/dL (9-16); Calcium 8.7 mg/dL (8.4-10.2); Carbon Dioxide 22 mmol/L (22-29); Chloride 104 mmol/L (96-108); Creatinine Clr Calc Pharmacy 57.9; Estimated Glomerular Filt Rate > 60; Glucose Random 99 mg/dL (60-115); Potassium 3.9 mmol/L (3.3-5.1); Sodium 134 mmol/L (135-145)
[2023-09-10 07:51] LABS: Creatinine Clr Calc Pharmacy 55.7; Estimated Glomerular Filt Rate > 60
[2023-09-10] MEDS: 0.9 % Sodium Chloride Flush 3 ML SYRINGE IVFLUSH ×3 (08:52→21:09)
--- NOTE | 2023-09-10 10:19 | PM.CNPUL ---
History of Present Illness History of Present Illness Consult date: 09/10/23 Chief complaint: Bilateral cavitary lung lesions Narrative: 78-year-old gentleman recent 50+ pack-years smoker, followed by Dr. Escobar, with underlying advanced COPD and history of COVID-19 and secondary pneumonia in 2021 admitted on 09/13/2023 with generalized weakness. Workup in the emergency demonstrated bilateral upper lobe cavitary lesions not previously seen on CT scan in 2017. Initial in the emergency room patient complained of sputum production, however he denied that during my evaluation. Patient denies any other pulmonary related concerns or complaints. He has been losing weight slowly. He was treated with broad-spectrum antibiotics and is being ruled out for CVA. Review of Systems Constitutional: Constitutional: Denies daytime sleepiness, Denies excessive sweating, Denies fatigue, Denies fever(s), Denies lethargy, Denies malaise, Denies night sweats, Denies snoring, Reports weakness and Reports weight loss Eyes: Eyes: Denies blurry vision and Denies itchy eyes ENT: Denies nasal congestion, Denies post nasal drip, Denies sinus pain, Denies sinus pressure and Denies other ( Thrush) Cardiovascular: Cardiovascular: Denies chest pain, Denies pedal edema, Denies dyspnea, Denies orthopnea and Denies paroxysmal nocturnal dyspnea Respiratory: Respiratory: Denies cough, Denies hemoptysis, Denies excessive phlegm production, Denies dyspnea, Denies snoring and Denies wheezing Gastrointestinal: Gastrointestinal: Denies abdominal pain and Denies heartburn Musculoskeletal: Musculoskeletal: Denies myalgias, Denies arthralgias and Denies joint swelling Integumentary/Breasts: Skin/Breast: Denies rash Neurologic: Denies memory loss, Denies seizure-like activity and Reports weakness Psychiatric: Psychiatric: Denies abnormal sleep pattern, Denies anxiety and Denies memory loss Endocrine: Endocrine: Denies excessive sweating, Denies fatigue and Denies heat intolerance Hematologic/Lymphatic: Hematologic/Lymphatic: Denies easy bruising Allergic/Immunologic: Allergic/Immunologic: Denies itchy eyes, Denies seasonal rhinorrhea and Denies wheezing PMFSH Past Medical History Medical History (Updated 09/10/23 @ 10:32 by Matteo Hobbs MD) Tachycardia determined by examination of pulse History of smoking at least 1 pack per day for at least 30 years 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) Insomnia Osteoporosis GERD without esophagitis Benign essential hypertension Smoker Smoker COPD (chronic obstructive pulmonary disease) Social History Social History Household Members: Significant Other Housing: House Do you presently have visiting nurse or other home services: No Alcohol intake: current Alcohol intake frequency: 0-2 drinks per day Alcohol type: beer Patient Tobacco Use Status: Former Tobacco user e-Cigarette/Vaping Use: Never Used Second Hand Smoke Exposure: No service: No Current occupational status: retired Cognitive needs: No Hearing needs: No Vision needs: No Meds Allergies Allergy/AdvReac Type Severity Reaction Status Date / Time aspirin [ASPIRIN] Allergy Intermediate SWELLING, Verified 07/06/23 14:29 hives Active Medications: Current Medications Acetaminophen (Acetaminophen 325 Mg Tablet) 650 mg PO Q6H PRN PRN Reason: Pain, Mild (Pain Scale 1-3) Albuterol/Ipratropium (Albuterol/Iprat 2.5/0.5mg 3 Ml Ampul.Neb) 3 ml INHALE RQ4H WHILE AWAKE [facility] Last Admin: 09/10/23 08:05 Dose: Not Given Albuterol/Ipratropium (Albuterol/Iprat 2.5/0.5mg 3 Ml Ampul.Neb) 3 ml INHALE Q4H PRN PRN Reason: Wheezing Last Admin: 09/10/23 01:59 Dose: 3 ml Enoxaparin Sodium (Enoxaparin Sodium 40 Mg/0.4 Ml Syringe) 40 mg SUBCUT Q24H DAMIEN Last Admin: 09/09/23 22:46 Dose: 40 mg Piperacillin Sod/Tazobactam (Sod 4.5 gm/ Sodium Chloride) 100 mls @ 200 mls/hr IV Q8H [facility]IEN Last Infusion: 09/10/23 09:32 Dose: Infused Vancomycin HCl 1,250 mg/ (Sodium Chloride) 250 mls @ 166.667 mls/hr IV Q24H [facility] Melatonin (Melatonin 3 Mg Tablet) 6 mg PO BEDTIME PRN PRN Reason: Insomnia Ondansetron HCl (Ondansetron Hcl 4 Mg/2 Ml Vial) 4 mg IVPUSH Q8H PRN PRN Reason: Nausea and Vomiting Pharmacy Consult (Consult Rx Vancomycin Dosing) 1 each MISCELLANE DAILY PRN PRN Reason: Consult order Sodium Chloride (0.9 % Sodium Chloride Flush 3 Ml Syringe) 3 ml IVFLUSH [facility] Last Admin: 09/10/23 08:52 Dose: 3 ml Home Medications Medication Instructions Recorded Confirmed Last Taken Type cholecalciferol (vitamin D3) 25 25 mcg PO DAILY 02/22/23 09/09/23 09/09/23 History mcg (1,000 unit) capsule albuterol sulfate 90 mcg/actuation 2 puff inhalation QID PRN Wheezing 09/09/23 09/09/23 Unknown History aerosol inhaler (Ventolin HFA) Physical Exam Vital Signs: Vital Signs: Last Vital Signs Temp 98.0 F 09/10/23 07:48 Pulse 84 09/10/23 07:48 Resp 17 09/10/23 07:48 BP 124/68 09/10/23 07:48 Pulse Ox 95 09/10/23 07:48 O2 Del Method Room Air 09/10/23 07:48 BMI result Body Mass Index 16.9 Const: General: no acute distress and alert Nutritional Appearance: malnourished Orientation/consciousness: Other orientation findings ( oriented) HEENT: Head: Yes atraumatic Eyes: General: appearance normal, both eyes and all related structures Sclerae: sclerae normal EOM: EOMs intact bilaterally Neck: Neck: Yes supple Lymphatic: no lymphadenopathy noted Resp: Effort & Inspection: normal respiratory effort and no use of accessory muscles Auscultation: clear to auscultation bilaterally Cardio: Rate: regular rate Rhythm: regular rhythm Heart sounds: no gallops, no murmurs and no rubs Skin: General skin exam: other ( warm) Extrem: General: No clubbing, No cyanosis and No edema Results Laboratory Findings 09/10/23 06:05 09/10/23 07:08 ABG, PT/INR, D-dimer: PT/INR, D-dimer PT 11.3 SEC (11.1-13.3) 09/09/23 18:23 INR 0.9 (0.9-1.1) 09/09/23 18:23 Abnormal lab findings: Abnormal Labs 09/09/23 09/10/23 18:23 06:05 WBC 15.6 H RBC 3.95 L 3.31 L Hgb 10.3 L 8.6 L Hct 31.9 L 27.1 L MCH 26.1 L 26.0 L Immature Gran % (Auto) 0.6 H 0.6 H Neut % (Auto) 88.7 H 84.1 H Lymph % (Auto) 3.1 L 5.7 L Lymph # (Auto) 0.5 L 0.5 L Abs Immat Gran (auto) 0.09 H 0.05 H Absolute Neuts (auto) 13.9 H Sodium 130 L 134 L Carbon Dioxide 20 L BUN 30 H 19 H Random Glucose 124 H Lactic Acid 3.8 H* Urine Protein 30 (1+) H Ur Leukocyte Esterase Trace H Urine RBC 3-5 H Assessment and Plan (1) Pulmonary cavitary lesion: Status: Acute (2) COPD (chronic obstructive pulmonary disease): Qualifiers: COPD type: unspecified COPD Qualified Code(s): J44.9 - Chronic obstructive pulmonary disease, unspecified Status: Acute Plan Impression: 78-year-old gentleman admitted with general weakness and incidentally noted to have bilateral upper lobe cavitary lesions with residual septation. Tuberculosis is unlikely. 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 Though, malignancy can not be ruled out at this time. Recommendation: At this time would agree with CAP coverage and outpatient pulmonary follow-up with possible PET scan. Time Spent With Patient Time: Total time managing care of this patient today ____ minutes. Procedures Date of Service Date of Service: 09/10/23
--- NOTE | 2023-09-10 11:46 | P.PNIM_ITS ---
Subjective Subjective Date of Service: 09/10/23 Interval History: left hemiparesis resolved Physical Exam 2 Vital Signs: Vital Signs: Last Vital Signs Temp 98.0 F 09/10/23 07:48 Pulse 84 09/10/23 07:48 Resp 17 09/10/23 07:48 BP 124/68 09/10/23 07:48 Pulse Ox 95 09/10/23 07:48 O2 Del Method Room Air 09/10/23 07:48 BMI result Body Mass Index 16.9 General: AO X 3, no acute distress Resp: diminshed bilateral, no accessory muscles used CVS: S1,S2,RRR GI: soft, non tender, non distended Neuro: motor grossly intact, alert Psych: appropriate affect, appropriate insight Objective Data Active Medications Acetaminophen (Acetaminophen 325 Mg Tablet) 650 mg PO Q6H PRN PRN Reason: Pain, Mild (Pain Scale 1-3) Albuterol/Ipratropium (Albuterol/Iprat 2.5/0.5mg 3 Ml Ampul.Neb) 3 ml INHALE RQ4H WHILE AWAKE [facility] Last Admin: 09/10/23 11:32 Dose: Not Given Documented By: MARY Non-Admin Reason: Patient Asleep Albuterol/Ipratropium (Albuterol/Iprat 2.5/0.5mg 3 Ml Ampul.Neb) 3 ml INHALE Q4H PRN PRN Reason: Wheezing Last Admin: 09/10/23 01:59 Dose: 3 ml Documented By: BRANDIE Enoxaparin Sodium (Enoxaparin Sodium 40 Mg/0.4 Ml Syringe) 40 mg SUBCUT Q24H [facility] Last Admin: 09/09/23 22:46 Dose: 40 mg Documented By: NAOMY Fluticasone/Vilanterol (Fluticasone/Vilanterol 200/25 Blst.W.Dev) 1 puff INHALE DAILY [facility] Piperacillin Sod/Tazobactam (Sod 4.5 gm/ Sodium Chloride) 100 mls @ 200 mls/hr IV Q8H [facility] Last Infusion: 09/10/23 09:32 Dose: Infused Documented By: LATISHA Vancomycin HCl 1,250 mg/ (Sodium Chloride) 250 mls @ 166.667 mls/hr IV Q24H [facility] Melatonin (Melatonin 3 Mg Tablet) 6 mg PO BEDTIME PRN PRN Reason: Insomnia Ondansetron HCl (Ondansetron Hcl 4 Mg/2 Ml Vial) 4 mg IVPUSH Q8H PRN PRN Reason: Nausea and Vomiting Pharmacy Consult (Consult Rx Vancomycin Dosing) 1 each MISCELLANE DAILY PRN PRN Reason: Consult order Prednisone (Prednisone 5 Mg Tablet) 5 mg PO Q OTHER DAY [facility] Sodium Chloride (0.9 % Sodium Chloride Flush 3 Ml Syringe) 3 ml IVFLUSH QSHIFT [facility] Last Admin: 09/10/23 08:52 Dose: 3 ml Documented By: LATISHA Vitamin D (Cholecalciferol (Vitamin D3) 25 Mcg Tablet) 25 mcg PO DAILY [facility] Labs 09/10/23 06:05 09/10/23 07:08 Labs: Laboratory Results - last 24 hr 09/09/23 09/09/23 09/10/23 18:23 21:36 06:05 MCV 80.8 81.9 MCH 26.1 L 26.0 L MCHC 32.3 31.7 RDW 14.9 15.2 Plt Count 363 326 MPV 9.6 10.0 Immature Gran % (Auto) 0.6 H 0.6 H Neut % (Auto) 88.7 H 84.1 H Lymph % (Auto) 3.1 L 5.7 L [place] % (Auto) 5.1 6.6 Eos % (Auto) 2.2 2.8 Baso % (Auto) 0.3 0.2 Lymph # (Auto) 0.5 L 0.5 L [place] # (Auto) 0.8 0.5 Eos # (Auto) 0.3 0.2 Baso # (Auto) 0.0 0.0 Abs Immat Gran (auto) 0.09 H 0.05 H Absolute Neuts (auto) 13.9 H 6.9 Absolute Nucleated RBC 0.000 0.000 Nucleated RBC % (auto) 0.0 0.0 PT 11.3 INR 0.9 APTT 28.1 Anion Gap 18 12 Estim Creat Clear Calc 37.9 57.9 Estimated GFR > 60 > 60 Random Glucose 124 H 99 Lactic Acid 3.8 H* Lactic Acid F/U @ 2Hr 0.8 Calcium 9.9 8.7 D Total Bilirubin 0.2 AST 27 ALT 12 Alkaline Phosphatase 74 Total Protein 7.5 Albumin 3.5 Lipase 10 Hold Yellow Top See Note Urine Color Dark Yellow Urine Appearance Clear Urine pH 5.5 Ur Specific [place] 1.025 Urine Protein 30 (1+) H Urine Glucose (UA) Negative Urine Ketones Negative Urine Blood Negative Urine Nitrite Negative Ur Leukocyte Esterase Trace H Urine RBC 3-5 H Urine WBC 0-5 Ur Squamous Epith Cells 0-2 Urine Bacteria None Seen Hyaline Casts >20 09/10/23 07:08 MCV MCH MCHC RDW Plt Count MPV Immature Gran % (Auto) Neut % (Auto) Lymph % (Auto) [place] % (Auto) Eos % (Auto) Baso % (Auto) Lymph # (Auto) [place] # (Auto) Eos # (Auto) Baso # (Auto) Abs Immat Gran (auto) Absolute Neuts (auto) Absolute Nucleated RBC Nucleated RBC % (auto) PT INR APTT Anion Gap Estim Creat Clear Calc 55.7 Estimated GFR > 60 Random Glucose Lactic Acid Lactic Acid F/U @ 2Hr Calcium Total Bilirubin AST ALT Alkaline Phosphatase Total Protein Albumin Lipase Hold Yellow Top Urine Color Urine Appearance Urine pH Ur Specific [place] Urine Protein Urine Glucose (UA) Urine Ketones Urine Blood Urine Nitrite Ur Leukocyte Esterase Urine RBC Urine WBC Ur Squamous Epith Cells Urine Bacteria Hyaline Casts Assessment and Plan (1) Pulmonary cavitary lesion: Status: Acute Plan 78-year-old male with pertinent history of essential hypertension, gastroesophageal reflux disease, COPD presented with left sided weakness, cough, found to have cavitary lesions left hemiparesis mri, neuro sepsis due to pneumonia with cavitary lesions rocephin, azitrho pulm appreciated, outpatient pet copd breo htn lisinopril held for possible tia dvt prohpylaxis - lovenox full code reason for continued hospitalization:awaiting mri Time Spent With Patient Time: Total time managing care of this patient today ____ minutes. Quality Stroke Does the patient have a stroke diagnosis?: No VTE Prior VTE?: No VTE Risk Level:: Medical - moderate - high VTE Device Contraindication: Treatment Not Indicated VTE Drug Contraindication: N/A - Med Ordered
--- NOTE | 2023-09-10 12:24 | MHC.CM.PN ---
PT REPORTS HE LIVES WITH HIS AND IS INDEPENDENT WITH CARE PT REPORTS HE HAS A CANE AND NO OTHER DME PT HAS NO SERVICES PT DOES NOT HAVE A HCP, HE DECLINES TO COMPLETE ONE AT THIS TIME PT CONFIRMS HIS PCP IS [facility] DELIVERED DCP: HOME NO SERVICES VS WITH [facility]. TO TRANSPORT
[2023-09-10] MEDS: predniSONE 5 MG TABLET PO (12:54)
[2023-09-10] MEDS: Enoxaparin Sodium 40 MG/0.4 ML SYRINGE SUBCUT (21:08)
[2023-09-10] MEDS: Melatonin 3 MG TABLET 6 MG PO (21:09)
[2023-09-10] MEDS: Azithromycin 500 MG TABLET PO (21:09)
[2023-09-10] MEDS: cefTRIAXone sodium 1 GM in 0.9 % Sodium Chloride 50 ML IV (21:13)
[2023-09-11 03:35] VITALS: PULSE 88; RESP 18; O2SAT 94
[2023-09-11] MEDS: Albuterol/Iprat 2.5/0.5MG 3 ML AMPUL.NEB INHALE ×3 (03:35→11:07)
[2023-09-11 03:39] VITALS: BP 134/78; PULSE 76; RESP 18; TEMP 36.2; O2SAT 97
[2023-09-11 06:07] LABS: Creatinine Clr Calc Pharmacy 61.1; Estimated Glomerular Filt Rate > 60
[2023-09-11] MEDS: Fluticasone/Vilanterol 200/25 BLST.W.DEV 1 PUFF INHALE ×2 (07:28→08:58)
[2023-09-11 07:29] VITALS: PULSE 89; RESP 18; O2SAT 95
[2023-09-11 07:47] VITALS: BP 139/69; PULSE 92; RESP 17; TEMP 36.3; O2SAT 96
[2023-09-11] MEDS: Cholecalciferol (Vitamin D3) 25 MCG TABLET PO (08:57)
[2023-09-11] MEDS: 0.9 % Sodium Chloride Flush 3 ML SYRINGE IVFLUSH (09:00)
--- NOTE | 2023-09-11 10:05 | P.DS_ITS ---
DS: Providers Provider Date of Service: 09/11/23 Date of admission: 09/09/23 21:45 Primary care physician: Tariq Parikh MD Consults: 09/09/23 22:06 Consult to Neurology Routine Consulting Provider: [facility] Reason for consultation: left sided weakness 09/10/23 00:42 Consult to Pulmonology Routine Consulting Provider: [facility] Reason for consultation: Cavitary lung lesion DS: Diagnosis Discharge Diagnosis (1) Pulmonary cavitary lesion: Status: Acute DS: Summary Hospital Course Hospital Course: from initial hpi: 78-year-old male with pertinent history of essential hypertension, gastroesophageal reflux disease, COPD who presents to the emergency department for generalized weakness. Patient states that about 1 day prior to presentation he felt like his left side of the body was weak. He could not lift his left leg. This lasted for a while but resolved. No loss of consciousness, jerking movement of extremities, tongue bite. No fever or chills. Patient states he also has been having a cough with purulent sputum production. No fever, chills, nausea, vomiting, shortness of breath, palpitations, chest discomfort, abdominal pain, changes in urinary bowel habits. In the emergency department, imaging with cavitary lung lesions and patient was found to be septic. hospital course: Patient was admitted for left hemiparesis. MRI was negative. Possibly TIA, will be discharged on aspirin statin. For sepsis due to pneumonia with cavitary lesions was treated with Rocephin azithromycin. Was seen by Pulmonary recommended outpatient PET scan. He will be discharged on 5 more days of ceftriaxone and azithromycin. Her COPD was continue on Breo. Hypertension lisinopril was held for permissive hypertension, can be started on discharge. Time Spent with Patient Time attestation: Total time managing care of this patient today ____ minutes. Discharge coordination time: Greater than 30 minutes Quality: Safe Use of Opioids Does Pt have an Active Cancer Diagnosis on the Problem List?: No Quality: Stroke Does the patient have a stroke diagnosis?: No Physical Exam Vital Signs: Vital Signs: Last Vital Signs Temp 97.4 F 09/11/23 07:47 Pulse 92 09/11/23 07:47 Resp 17 09/11/23 07:47 BP 139/69 09/11/23 07:47 Pulse Ox 96 09/11/23 07:47 O2 Del Method Room Air 09/11/23 07:47 BMI result Body Mass Index 16.9 General: AO X 3, no acute distress Resp: diminshed bilateral, no accessory muscles used CVS: S1,S2,RRR GI: soft, non tender, non distended Neuro: motor grossly intact, alert Psych: appropriate affect, appropriate insight DS: Data Data Completed and Pending Labs on day of discharge: Laboratory Results - last 24 hr 09/11/23 05:09 Hold Purple Top SEE NOTE Creatinine 0.72 Estim Creat Clear Calc 61.1 Estimated GFR > 60 Preliminary micro results at discharge 09/09/23 18:23 Blood Culture - Preliminary Blood - Venous No growth after 24 hours. 09/09/23 18:23 Blood Culture - Preliminary Blood - Venous No growth after 24 hours. Discharge Plan Discharge Anticipated Discharge Date/Time: 09/11/23 10:01 Patient Disposition: Home, Self-Care Discharge Diagnosis: tia, cavitary leisons Referrals: Tariq Parikh MD [Primary Care Provider] - 1 Week Matteo Hobbs MD [Physician] - 1 Week Discharge Medications: New clopidogrel [Plavix] 75 mg tablet 75 mg PO DAILY Qty: 30 0RF cefuroxime axetil 500 mg tablet 500 mg PO BID Qty: 10 0RF azithromycin 500 mg tablet 500 mg PO DAILY 5 Days Qty: 5 0RF atorvastatin 40 mg tablet 40 mg PO BEDTIME Qty: 30 0RF Continued ipratropium-albuterol 0.5 mg-3 mg(2.5 mg base)/3 mL solution for nebulization 3 ml inhalation QID Qty: 360 5RF omeprazole 20 mg capsule,delayed release(DR/EC) 20 mg PO DAILY 90 Days Qty: 90 3RF lisinopril 5 mg tablet 5 mg PO DAILY Qty: 90 1RF Breo Ellipta 200-25 mcg/dose blister with device 1 inh PO DAILY Qty: 60 2RF prednisone 5 mg tablet 5 mg PO Q OTHER DAY Qty: 14 3RF albuterol sulfate [Ventolin HFA] 90 mcg/actuation HFA aerosol inhaler 2 puff INHALATION QID PRN (Reason: Wheezing) cholecalciferol (vitamin D3) 25 mcg (1,000 unit) capsule 25 mcg PO DAILY Discharge Orders: Discharge Order (Routine); Ordered 09/11/23 Ordered By: Foster Ludwig Diet: Advance to usual diet Activity on Discharge: As tolerated Stand Alone Forms: Patient Portal Discharge page Care Plan Goals: recovery Health Concerns: tia, cavitary lesion Plan of Treatment: asa, statin, pneumonia antibiotics, follow up pulm for possible pet Assessment: see above
--- NOTE | 2023-09-11 10:21 | MHC.CM.PN ---
PT WILL DC HOME TODAY WITH NO SERVICES VIA FAMILY TRANSPORT
[2023-09-11 11:08] VITALS: PULSE 87; RESP 18; O2SAT 95
[2023-09-11 11:29] VITALS: BP 139/65; PULSE 98; RESP 17; TEMP 36.4; O2SAT 97
== END 2023-09-11 14:03 | disposition home or self-care (01) | DRG 871 ==
LOC: HO.ED 20:15 → HO.EDOVER 21:45 → HO.S3 09-10 00:04
PROVIDERS: Physician Assistant; Admitting Provider Student in an Organized Health Care Education/Training Program; Emergency Provider Emergency Medicine; PCP Internal Medicine; Visit Provider Internal Medicine
DX: A41.9 Sepsis, unspecified organism (principal); J18.9 Pneumonia, unspecified organism; J44.0 Chronic obstructive pulmonary disease with (acute) lower respiratory infection; E87.21 Acute metabolic acidosis; G81.94 Hemiplegia, unspecified affecting left nondominant side; G45.9 Transient cerebral ischemic attack, unspecified; K21.9 Gastro-esophageal reflux disease without esophagitis; Z79.899 Other long term (current) drug therapy
CPT/HCPCS: 36415; 70496; 70498; 70551; 71045; 71250; 80048; 80053; 81001; 82565; 83605; 83690; 84484; 85025; 85610; 85730; 87040; 93005; 94640; 99285; J0456; J0696; J1650; J2543; J3370; Q9967

== ENCOUNTER → 2023-09-09 21:45 | Outpatient (BNV) | payer MEDICARE, SELFPAY | PROVIDERS: Admitting Provider Student in an Organized Health Care Education/Training Program; Emergency Provider Emergency Medicine; PCP Internal Medicine; Visit Provider Internal Medicine Pulmonary Disease | DX: J98.4 Other disorders of lung (principal); J44.9 Chronic obstructive pulmonary disease, unspecified | CPT/HCPCS: 99222 ==

== ENCOUNTER → 2023-09-09 21:45 | Outpatient (BNV) | payer MEDICARE, SELFPAY | PROVIDERS: Admitting Provider Student in an Organized Health Care Education/Training Program; Emergency Provider Emergency Medicine; PCP Internal Medicine; Visit Provider Student in an Organized Health Care Education/Training Program | DX: J98.4 Other disorders of lung (principal) | CPT/HCPCS: 99223; 99232; 99239 ==

== ENCOUNTER 2023-10-10 10:06 | Outpatient (AMB) | payer MEDICARE, SELFPAY ==
[2023-10-10 10:07] VITALS: BP 114/60; PULSE 115; O2SAT 99; BMI 17.5
--- NOTE | 2023-10-10 10:07 | MHC.PC.OV ---
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: No Accompanied by: Self / Same As Patient Allergies aspirin [ASPIRIN] Allergy (Intermediate, Verified 02/02/24 04:07) SWELLING, hives Medication List - Last Reconciled 10/10/23 by Tariq Parikh MD albuterol sulfate 90 mcg/actuation (Ventolin HFA) 2 puffs inhalation QID PRN atorvastatin 40 mg PO BEDTIME Breo Ellipta 200-25 mcg/dose (fluticasone furoate-vilanterol) 1 inh PO DAILY NS cholecalciferol (vitamin D3) 25 mcg PO DAILY clopidogrel (Plavix) 75 mg PO DAILY ipratropium-albuterol 0.5 mg-3 mg(2.5 mg base)/3 mL 3 mL inhalation QID lisinopril 5 mg PO DAILY omeprazole 20 mg PO DAILY 90 days prednisone 5 mg PO Q OTHER DAY Tobacco use date assessed: 10/10/23 Fall risk assessment: 1 Fall in past year Last assessed Fall Risk: 10/10/23 Dental Screening Dental Screen Date: 10/10/23 Did you have a dental visit in the last 12 months?: No Did you have a dental problem in the last 6 months where you did not have access to dental care?: No Was dental information given to patient?: No HPI f/u HPI Details Patient comes in today for his HDF follow up visit He was brought to the ER last month when his family called stating that the patient was very weak overall and could hardly move the left side of his body Work ups done in the ER revealed (+) diffuse centrilobular and paraseptal emphysema with a large cavitary thick-walled lesion in the right upper lobe. Adjacent to this cavity is consolidation with air bronchogram in the right upper lobe likely chronic scarring with mild bronchiectasis and/or pneumonic infiltrate. There is also a cavitary lesion in the left lower lobe posterior basal segment with adjacent parenchymal opacity likely chronic scarring. The cavity appears septated. There is patchy airspace disease in the right lower lobe posterior basal segment with adjacent nodular densities; there are also small bilateral pleural effusions. MRI of the brain came out negative Patient was admitted for left hemiparesis, possibly TIA, as well as for sepsis due to pneumonia with cavitary lesions He was initially treated with IV Rocephin and oral Azithromycin He was seen by pulmonary and they recommended outpatient PET scan for further evaluation He was discharged on 5 more days of Ceftriaxone and Azithromycin and was continued on Breo Ellipta He was also started on low-dose Aspirin Patient states that he currently feels okay and that his left-sided weakness has completely resolved with no recurrence He denies any headaches or dizziness Denies any chest pains; still has mild JAQUEZ but states that this is mostly unchanged from previous No nausea/vomiting, no abdominal pain No change in bowel habits noted He needs a few of his Rx refilled Would also like to get his flu shot today [facility] Medical History Tachycardia determined by examination of pulse History of smoking at least 1 pack per day for at least 30 years 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) Insomnia Osteoporosis GERD without esophagitis Benign essential hypertension Smoker Smoker COPD (chronic obstructive pulmonary disease) Social History Household Members: Spouse and Family Household Members Other:: and grandson Housing: House Do you presently have visiting nurse or other home services: No Alcohol intake: current Alcohol intake frequency: 0-2 drinks per day Alcohol type: beer Patient Tobacco Use Status: Former Tobacco user e-Cigarette/Vaping Use: Never Used Second Hand Smoke Exposure: No service: No Current occupational status: retired Cognitive needs: No Hearing needs: No Vision needs: No Questionnaire PHQ-9 Over the last 2 weeks, how often have you been bothered by any of the following problems? 1. Little interest or pleasure in doing things: not at all 2. Feeling down, depressed, or hopeless: not at all 3. Trouble falling or staying asleep, or sleeping too much: not at all 4. Feeling tired or having little energy: not at all 5. Poor appetite or overeating: not at all 6. Feeling bad about yourself - or that you are a failure or have let yourself or your family down: not at all 7. Trouble concentrating on things, such as reading the newspaper or watching television: not at all 8. Moving or speaking so slowly that other people could have noticed. Or the opposite - being so fidgety or restless that you have been moving around a lot more than usual: not at all 9. Thoughts that you would be better off or of hurting yourself in some way: not at all Total score: 0 Depression Screening Interpretation: Negative Depression Screening Done: Yes 20754 - PHQ-9 Billing: Yes Source: Developed by Drs. Tushar Vargas, Marybeth Shah, Korey Bauer and colleagues, with an educational lila from [employer]. Thrive Questionnaire Date Thrive assessed: 10/10/23 I am a: Patient What is your living situation today?: I have a steady place to live Within the past 12 months, did the food you bought not last and you didn't have the money to get more?: Never true Within the past 12 months, did you worry whether your food would run out before you got money to buy more?: Never true Do you have trouble paying for medicines?: No Do you have trouble getting transportation to medical appointments?: No Do you have trouble paying your heating and electricity bill?: No Do you have trouble taking care of your child, family member or friend?: No Do you have trouble with day-to-day activities such as bathing, preparing meals, shopping, managing finances, etc.?: No Are you currently unemployed and looking for a job?: No Are you interested in more education?: No Please select the resources that you would like help with: None Currently or been in a relationship where the following occur: no concerns reported AUDIT C Alcohol Use Questionnaire (AUDIT-C) 1. How often do you have a drink containing alcohol?: 4 or more times a week 2. How many drinks containing alcohol do you have on a typical day when you are drinking?: 1 or 2 3. How often do you have six or more drinks on one occasion?: Never Total Score: 4 Score Reviewed/Action Taken: Yes ALEXUS-7 AMB Questionnaire ALEXUS-7 Date ALEXUS - 7 assessed: 10/10/23 Feeling nervous, anxious, or on edge: 0 = Not at all Not being able to stop or control worryin = Not at all Worrying too much about different things: 0 = Not at all Trouble relaxin = Not at all Being so restless that it is hard to sit still: 0 = Not at all Becoming easily annoyed or irritable: 0 = Not at all Feeling afraid as if something awful might happen: 0 = Not at all Total ALEXUS-7 score (0-4 normal; 5-9 mild; 10-14 moderate; 15-21 severe): 0 Source: Developed by Drs. Tushar Vargas, Marybeth Shah, Korey Bauer and colleagues, with an educational lila from [employer]. Review of Systems Const Denies chills, Reports fatigue, Denies fever(s) and Denies headache(s) ENT Denies dysphagia, Denies dizziness, Denies otalgia, Denies headache(s), Denies odynophagia and Denies sore throat Card Denies chest pain, Denies palpitations and Reports dyspnea on exertion (mild) Resp Denies chest congestion, Reports cough (on and off), Reports dyspnea on exertion (mild) and Denies wheezing GI Denies abdominal pain, Denies constipation, Denies dysphagia, Denies heartburn, Denies diarrhea, Denies nausea, Denies odynophagia and Denies vomiting Denies dysuria, Denies nocturia and Denies urinary frequency Musc Denies back pain Skin/Breast Denies rash Neuro Denies dizziness and Denies headache(s) Endo Reports fatigue and Denies palpitations Aller/Immun Denies wheezing Physical exam (Primary Care) Vital Signs: Last Vital Signs Pulse 115 H 10/10/23 10:07 BP 114/60 10/10/23 10:07 Pulse Ox 99 10/10/23 10:07 Oxygen Delivery Method Room Air 10/10/23 10:07 BMI result Body Mass Index 17.5 Tobacco/Smoking Status: Tobacco use Status Tobacco use date assessed 10/10/23 10/10/23 10:15 Patient Tobacco Use Status Former Tobacco user 10/10/23 10:15 e-Cigarette/Vaping Use Never Used 10/10/23 10:15 PHQ-9: PHQ-9 Score PHQ-9: Total score 0 04/16/24 04:55 Depression Screening Interpretation: Negative Thrive Assessment: Date of Thrive Assessment Date Thrive assessed 10/10/23 10/10/23 10:15 Currently or been in a relationship where the following occur: no concerns reported Const General: no acute distress and alert HENMT Ears: TM's normal bilaterally and EAC's normal Throat: Yes posterior oropharynx normal and Yes tonsils normal (no TP congestion noted) Neck Neck: Yes no lymphadenopathy and Yes supple Thyroid: Thyroid normal Resp Auscultation: no rales, rhonchi (scattered) throughout, no wheezes and diminished lung sounds bilateral Cardio Rate: regular rate Rhythm: regular rhythm Heart sounds: no murmurs GI Palpation (GI): Soft to palpation and nontender Auscultation: normal bowel sounds General: Yes no CVA tenderness Back/Spine/Pelvis Back: no CVA tenderness Skin Rashes: no rashes Extrem General: Yes no clubbing, cyanosis or edema Office Procedures Flu Questionnaire Does the patient have a severe egg allergy?: No Does the patient have severe life threatening allergies?: No Does the patient have a fever or illness today?: No Has the patient ever had Guillain-[place]illa Syndrome?: No Has the patient ever had any past reaction to a flu shot?: No Immunizations flu vacc [id number] 6mos up(PF) 60 mcg(15 mcgx4)/0.5 mL IM syringe Performing Provider: Tariq Parikh MD [facility] Administered by: KODY Aguirre on 10/10/23 11:10 Dose Route Admin Location Dispensed Lot Number Expiration Date NDC Insulation Engineman 0.5 mL IM Right Deltoid 0.5 mL [id number] 05/27/24 53847-662-47 [facility] V[facility] Given Date VIS Provided VIS Publication Date 10/10/23 Single Vaccine 21 Eligibility Eligibility Date Funding Source Not [facility] Eligible 10/10/23 Private Assessment and Plan Assessment & Plan (1) Transient cerebral ischemia: Code(s): G45.9 - Transient cerebral ischemic attack, unspecified Qualifiers: Transient cerebral ischemia type: unspecified Qualified Code(s): G45.9 - Transient cerebral ischemic attack, unspecified Plan: His brain MRI done at the ER a few weeks ago came out normal States that his left-sided weakness have completely resolved within a few minutes of when it started and has not recurred since Continue Aspirin 81 mg QD He was also started on Atorvastatin 40 mg QD for primary risk reduction Will refer him to neurology for further evaluation and management (2) Pulmonary cavitary lesion: Comment: PATIENT WAS TREATED FOR BILATERAL CAVITARY PNEUMONIA IN THE UPPER LOBES. POSSIBILITY OF INFECTED EMPHYSEMATOUS BULLAE , WAS CONSIDERED , TREATED WITH ANTIBIOTICS AND CLINICALLY IMPROVED. HE HAD BEEN ADVISED TO HAVE A PET SCAN OUTPATIENT. HOWEVER PATIENT DID NOT COME BACK FOR FOLLOW-UP. REPEAT CHEST X-RAY DID NOT SHOW ANY NEW CHANGE IN THE WORST CASE SCENARIO, IF HE DOES HAVE NEOPLASM OF THE LUNGS, HE IS NOT GOING TO TOLERATE ANY AGGRESSIVE TREATMENT. Code(s): J98.4 - Other disorders of lung Plan: He was treated with Ceftriaxone and Azithromycin and just finished his antibiotics about a week ago He was seen by Pulmonary and recommended to get a PET scan on an outpatient basis for further evaluation of his pulmonary cavitary lesions (3) COPD (chronic obstructive pulmonary disease): Comment: THIS GENTLEMAN HAS ADVANCED CHRONIC OBSTRUCTIVE PULMONARY DISEASE , DUE TO HIS LIFELONG SMOKING. IT IS RELATIVELY STABLE AT PRESENT. LUNGS ARE CLEAR AND WELL AERATED. 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): Code(s): E22.2 - Syndrome of inappropriate secretion of antidiuretic hormone Plan: His serum sodium was at 134 mmol/L on his labs done a few weeks ago when he was discharged from [facility] Reinforced fluid restriction Continue Sodium Chloride tablet 1 gm TID Follow up with nephrology as scheduled Will have patient recheck his labs in 2 months for follow-up (5) Benign essential hypertension: Code(s): I10 - Essential (primary) hypertension Plan: Reinforced systolic BP goal of at least 140 mm or less Continue Lisinopril 5 mg QD (6) GERD without esophagitis: Code(s): K21.9 - Gastro-esophageal reflux disease without esophagitis Plan: Dietary restrictions reinforced Continue Pantoprazole 40 mg QD (7) Osteoporosis: Comment: BMD done back in January 2018 showed (+) osteoporosis, with a t-score of -3.4 in the femoral neck area Code(s): M81.0 - Age-related osteoporosis without current pathological fracture Qualifiers: Osteoporosis type: age-related Presence of current pathological fracture: without current pathological fracture Qualified Code(s): M81.0 - Age-related osteoporosis without current pathological fracture Plan: Fall precautions reinforced Continue Vitamin D3 1000 units QD and oral calcium supplements daily (8) Insomnia: Code(s): G47.00 - Insomnia, unspecified Qualifiers: Insomnia type: unspecified Qualified Code(s): G47.00 - Insomnia, unspecified Plan: Sleep hygiene reinforced Used to take Trazodone 100 mg Q HS but states that he has not had to take Trazodone for several months now Plan Flu vaccine given today Follow up in 2 months Orders: Orders Complete Blood Count Auto Diff 2 Months I10 - Essential (primary) hypertension Lipid Panel 2 Months E78.00 - Pure hypercholesterolemia, unspecified TSH reflex Free T4 2 Months E78.00 - Pure hypercholesterolemia, unspecified UA CC w/rflx Micro + Cult 2 Months R30.0 - Dysuria Vitamin B12 and Folate 2 Months E53.8 - Deficiency of other specified B group vitamins Comprehensive [place]. Panel Fast 2 Months E78.00 - Pure hypercholesterolemia, unspecified Vitamin D 25-OH Total 2 Months E55.9 - Vitamin D deficiency, unspecified Influenza [id number] Immunization 10/10/23 Z23 - Encounter for immunization Referrals Neurology Referral G45.9 - Transient cerebral ischemic attack, unspecified Medications: New pantoprazole 40 mg PO DAILY 90 tabs 3RF 90 days Changed From clopidogrel 75 mg PO DAILY 30 tabs 0RF G45.9 - Transient cerebral ischemic attack, unspecified To clopidogrel (Plavix) 75 mg PO DAILY 90 tabs 1RF 90 days G45.9 - Transient cerebral ischemic attack, unspecified From atorvastatin 40 mg PO BEDTIME 30 tabs 0RF To atorvastatin 40 mg PO BEDTIME 90 tabs 1RF 90 days Discontinued omeprazole Discontinued Reason: Doctor's Order 20 mg PO DAILY 90 days 90 caps 3RF Coding Level of Care Code Est Pt Level 4 (11614) Diagnoses Transient cerebral ischemia, unspecified type G45.9 Transient cerebral ischemia type: unspecified Pulmonary cavitary lesion J98.4 Chronic obstructive pulmonary disease, unspecified COPD type J44.9 COPD type: unspecified COPD 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
== END 2023-10-10 11:02 | disposition home or self-care (01) ==
PROVIDERS: PCP Internal Medicine; Visit Provider Internal Medicine
DX: G45.9 Transient cerebral ischemic attack, unspecified (principal); J98.4 Other disorders of lung; J44.9 Chronic obstructive pulmonary disease, unspecified; E22.2 Syndrome of inappropriate secretion of antidiuretic hormone; I10 Essential (primary) hypertension; K21.9 Gastro-esophageal reflux disease without esophagitis; M81.0 Age-related osteoporosis without current pathological fracture; G47.00 Insomnia, unspecified
CPT/HCPCS: 90471; 90686; 99214

== ENCOUNTER 2023-12-27 13:40 | Outpatient (REF) | payer MEDICARE, SELFPAY ==
--- NOTE | ~2023-12-27 | XR_ITS ---
EXAMINATION: XR CHEST CLINICAL INFORMATION: Follow-up chest x-ray. COMPARISON: CT chest of 09/09/2023. Radiograph chest 09/09/2023. TECHNIQUE: 2 views of the chest were obtained. FINDINGS: Redemonstration of extensive bilateral areas of perihilar and upper lobe predominant bronchiectasis/bronchial thickening/increased lung parenchymal markings. Lungs are hyperinflated with redemonstration of characteristics of severe chronic obstructive pulmonary disease. Redemonstration of large cavitary lesion in the right upper lobe and left midlung. Trace bilateral pleural effusions. Heart size is normal. Degenerative changes in the thoracic spine. Increased bilateral patchy opacities, predominantly right mid and lateral upper lung as well as left [id number] lung. XR/XR chest 2V IMPRESSION: Redemonstration of extensive bilateral areas of perihilar and upper lobe predominant bronchiectasis/bronchial thickening/increased lung parenchymal markings. Redemonstration of large bilateral cavitary lesions. Increased bilateral patchy opacities, predominantly right mid and lateral upper lung as well as left [id number] lung. CT scan should be considered for further evaluation and would be much more sensitive for evaluation.
[2023-12-27 15:24] LABS: Basophils Absolute Auto 0.1 X10*3/uL (0.0-0.2); Basophils Percent Auto 0.3 % (0-2); Eosinophils Absolute Auto 0.1 X10*3/uL (0.0-0.4); Eosinophils Percent Auto 0.9 % (0-4); Hematocrit 30.1 % (42.0-52.0); Hemoglobin 9.6 g/dl (14.0-18.0); Imm Gran Abs Auto 0.16 X10*3/uL (0.00-0.03); Lymphocytes Absolute Auto 0.5 X10*3/uL (1.2-4.9); Lymphocytes Percent Auto 3.1 % (20-40); MANUAL DIFF FLAG SCAN; Mean Corpuscular HGB Conc 31.9 g/dl (31.0-36.0); Mean Corpuscular Hemoglobin 24.6 pg (27.0-33.0); Mean Platelet Volume 9.5 fL (9.4-12.4); Monocytes Absolute Auto 0.7 X10*3/uL (0.1-1.2); Monocytes Percent Auto 4.3 % (2-11); Neutrophils Absolute Auto 13.9 x10*3/uL (2.0-8.3); Neutrophils Percent Auto 90.4 % (45-73); Platelet Count 422 X10*3/uL (160-400); Red Blood Count 3.91 X10*6/uL (4.60-5.80); SCAN SMEAR FLAG 1; White Blood Count 15.4 X10*3/uL (4.8-10.8)
[2023-12-27 15:32] LABS: Estimated Average Glucose 140 mg/dL; Hemoglobin A1c % 6.5 % (<6.0)
[2023-12-27 15:58] LABS: SLIDE REVIEW VERIFIED
[2023-12-27 16:02] LABS: Alanine Aminotransferase 8 U/L (0-40); Albumin Level 3.6 g/dL (3.5-5.0); Alkaline Phosphatase 88 U/L (39-117); Anion Gap 18 (12-20); Aspartate Amino Transferase 12 U/L (5-37); Bilirubin Total 0.2 mg/dL (0.0-1.0); Blood Urea Nitrogen 13 mg/dL (9-16); Calcium 9.7 mg/dL (8.4-10.2); Carbon Dioxide 23 mmol/L (22-29); Chloride 97 mmol/L (96-108); Cholesterol 94 mg/dL (<200); Estimated Glomerular Filt Rate > 60; Glucose Fasting 99 mg/dL (60-99); HDL Cholesterol 49 mg/dL (>40); LDL Cholesterol Calculated 28 mg/dL (<100); Potassium 4.4 mmol/L (3.3-5.1); Sodium 134 mmol/L (135-145); Total Protein 7.5 g/dL (6.5-8.0); Triglycerides 88 mg/dL (<150)
[2023-12-27 16:09] LABS: TSH reflex Free T4 3.01 uIU/mL (0.32-4.0); Vitamin D 25-OH Total 14.9 ng/mL (>30)
[2023-12-27 16:24] LABS: Folate 2.6 ng/mL (> or = 4.0); Vitamin B12 317 pg/mL (200-900)
== END 2023-12-27 13:41 | disposition home or self-care (01) ==
LOC: HO.XRAY 13:40
PROVIDERS: Absent Provider Internal Medicine; PCP Internal Medicine; Visit Provider Internal Medicine
DX: J98.4 Other disorders of lung (principal); E78.00 Pure hypercholesterolemia, unspecified; J44.9 Chronic obstructive pulmonary disease, unspecified; E53.8 Deficiency of other specified B group vitamins; I10 Essential (primary) hypertension; E55.9 Vitamin D deficiency, unspecified; R73.9 Hyperglycemia, unspecified; Z87.891 Personal history of nicotine dependence
CPT/HCPCS: 36415; 71046; 80053; 80061; 82306; 82607; 82746; 83036; 84443; 85025; 94618; 99212

== ENCOUNTER 2023-12-27 13:40 | Outpatient (AMB) | payer MEDICARE, SELFPAY ==
--- NOTE | 2023-12-27 14:08 | MHC.OFFVIS ---
Intake Vital Signs 12/27/23 14:09 Height 5 ft 8 in Weight 102 lb 8.239 oz BMI 15.6 BP 112/52 L Blood Pressure Location Lt brachial Position Sitting Pulse 139 H Pulse Source Pulse Oximeter Pulse Oximetry (%) 94 Oxygen Delivery Method Room Air Intake Visit Reasons: f/u Intake Note: pt is here for follow up and states he is short of breath with movement, exertion is very bad. he does have mucous in am, using his machine and clears his chest out. He did not have lab work done in September for Dr. Adair. 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 Required: No Allergies aspirin [ASPIRIN] Allergy (Intermediate, Verified 12/27/23 14:32) SWELLING, hives Medication List - Last Reconciled 12/27/23 by Gabriela Escobar MD ammonium lactate 5% (Lac-Hydrin Five) 1 appl topical BID PRN atorvastatin 40 mg PO BEDTIME 90 days Breo Ellipta 200-25 mcg/dose (fluticasone furoate-vilanterol) 1 ea PO DAILY NS cholecalciferol (vitamin D3) 25 mcg PO DAILY clopidogrel (Plavix) 75 mg PO DAILY 90 days hydroxyzine HCl 25 mg PO TID PRN 30 days ipratropium-albuterol 0.5 mg-3 mg(2.5 mg base)/3 mL 3 mL inhalation QID lisinopril 5 mg PO DAILY pantoprazole 40 mg PO DAILY 90 days prednisone 5 mg PO Q OTHER DAY Ventolin HFA 90 mcg/actuation (albuterol sulfate) 2 puffs PO QID NS Do you need a note to return to daycare/school/sports/work: No HPI f/u HPI Details 78-year-old gentleman recent 50+ pack-years smoker, with advanced COPD and history of COVID-19 and secondary pneumonia in 2021 . was admitted on 09/13/2023 with generalized weakness. Workup in the emergency demonstrated bilateral upper lobe cavitary lesions not previously seen on CT scan in 2017. Patient was treated with a course of Rocephin and azithromycin, and sent home to be followed up as outpatient. He never came for follow-up after the discharge, and finally after missing a few appointments he has come today. He claims that he has had no fever chills or expectoration. Course he gets short of breath with minimal exertion. He remains very weak and mostly sitting in the chair at home. He does not have any oxygen at home. Would like to be tested for possible portable oxygen unit. According to his he does not eat much. He remains underweight but in the last few months weight has remained stable. 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) Insomnia Osteoporosis GERD without esophagitis Benign essential hypertension Smoker Smoker COPD (chronic obstructive pulmonary disease) Social History Household Members: Significant Other Housing: House Do you presently have visiting nurse or other home services: No Alcohol intake: current Alcohol intake frequency: 0-2 drinks per day Alcohol type: beer Patient Tobacco Use Status: Former Tobacco user e-Cigarette/Vaping Use: Never Used Second Hand Smoke Exposure: No service: No Current occupational status: retired Cognitive needs: No Hearing needs: No Vision needs: No Review of Systems Const Denies chills, Denies fatigue, Denies fever(s) and Denies headache(s) ENT Denies headache(s), Denies sinus pain and Denies sore throat Card Denies chest pain, Denies palpitations and Denies dyspnea Resp Denies cough and Denies dyspnea GI Denies abdominal pain, Denies constipation, Denies heartburn, Denies diarrhea, Denies nausea and Denies vomiting Denies dysuria and Denies nocturia Neuro Denies headache(s) Endo Denies fatigue and Denies palpitations Physical Exam Vital Signs: Last Vital Signs Pulse 139 H 12/27/23 14:09 BP 112/52 L 12/27/23 14:09 Pulse Ox 94 12/27/23 14:09 Oxygen Delivery Method Room Air 12/27/23 14:09 BMI result Body Mass Index 15.6 Const Other: He is of a thin build and appears comfortable and stable General: comfortable, no acute distress, alert and awake Orientation/consciousness: patient oriented x3 HEENT Head: Yes normal to inspection General nose exam: No nasal polyps present and No nasal discharge present Face and sinus: Yes sinuses nontender Mouth: oropharynx normal Throat: Yes posterior oropharynx normal Eyes General: appearance normal, both eyes and all related structures Neck Neck: Yes normal visual inspection, Yes no lymphadenopathy, Yes trachea midline and Yes no JVD Thyroid: Thyroid normal Chest Chest palpation & inspection: normal inspection of the chest, normal palpation of entire chest wall and no tenderness Resp Other: Percussion note hyper-resonant, breath sounds are distant with prolonged expiratory phase. No wheezes or rhonchi , and no crepitations are heard. Cardio Palpation: normal PMI Rate: regular rate and tachycardic (HR .ON WALKING IN 129 DURING EXAM SETTLED DOWN TO 118) Rhythm: regular rhythm Heart sounds: no gallops and no murmurs GI Palpation (GI): Soft to palpation, nontender, No hepatosplenomegaly present and no masses Auscultation: normal bowel sounds Back/Spine/Pelvis Thoracic/Lumbar Spine: thoracic and lumbar spine normal to inspection and thoraco-lumbar ROM limited Skin General skin exam: no rashes or lesions noted Neuro General: patient oriented x3 and no focal motor deficits Cranial nerves: Yes CN's II-XII intact bilaterally Extrem General: Yes normal to inspection, Yes no clubbing, cyanosis or edema, Yes no calf tenderness and Yes other (Legs are very thin with some muscular wasting.) Psych Appearance: grossly normal Speech and movement: Normal speech and movement present Office Procedures 6 Minute Walk Time:: 13:45 SPO2 % at rest: 97 Pulse at rest: 128 SPO2 % during excercise: 100 Pulse during excercise: 151 SPO2 % after excercise: 99 Pulse after excercise: 119 Distance in yards walked: 60 Mathew Score: 8 Performance Observations:: Joshua walked on level ground with a walker, he walked on room air maintaining his SPO2 99-100% for the entire walk. No supplemental O2 needed. His HR did increase to 151 bpm, walk stopped and he was seated in a wheelchair c/o increased shortness of breath, denies chest pain. MD aware of HR. His HR did decrease to 119 bpm with rest. [id number] - 6 Minute Walk Results Reviewed Results Reviewed: CHEST XRAY , NO RESIDUAL MASS OR CAVITIES , HAS CURVED SCARRING , SEC TO LARGE BULLAE IN UPPER LOBES 6 MINUTES WALK: OXYGEN LEVEL REMAINED IN NORMAL RANGE , LOWEST O2 SAT 91%. DID NOT QUALIFY FOR OXYGEN. Assessment & Plan Assessment & Plan (1) COPD (chronic obstructive pulmonary disease): Comment: THIS GENTLEMAN HAS ADVANCED CHRONIC OBSTRUCTIVE PULMONARY DISEASE , DUE TO HIS LIFELONG SMOKING. IT IS RELATIVELY STABLE AT PRESENT. LUNGS ARE CLEAR AND WELL AERATED. Code(s): J44.9 - Chronic obstructive pulmonary disease, unspecified Qualifiers: COPD type: unspecified COPD Qualified Code(s): J44.9 - Chronic obstructive pulmonary disease, unspecified Plan: CONTINUE BREO 200-251 INHALATION DAILY DUONEB UPDRAFTS T.I.D. VENTOLIN HFA 2 PUFFS Q 6 HOURS P.R.N. WHEN OUTDOORS. PREDNISONE 5 MG ON ALTERNATE DAYS (2) History of smoking at least 1 pack per day for at least 30 years: Comment: HE DID HAVE HISTORY OF SMOKING FOR MORE THAN 30 YEARS BUT LUCKILY QUIT 2 YEARS AGO. Code(s): Z87.891 - Personal history of nicotine dependence Plan: COMMENDED FOR HAVING QUIT SMOKING A FEW YEARS AGO. AND ADVISE THAT HE SHOULD NOT GO BACK TO SMOKING AT ALL. (3) Pulmonary cavitary lesion: Comment: PATIENT WAS TREATED FOR BILATERAL CAVITARY PNEUMONIA IN THE UPPER LOBES. POSSIBILITY OF INFECTED EMPHYSEMATOUS BULLAE , WAS CONSIDERED , TREATED WITH ANTIBIOTICS AND CLINICALLY IMPROVED. HE HAD BEEN ADVISED TO HAVE A PET SCAN OUTPATIENT. HOWEVER PATIENT DID NOT COME BACK FOR FOLLOW-UP. AT THIS POINT HIS LUNG SEEM TO BE CLEAR, AND I THINK I WILL JUST GET A PLAIN CHEST X-RAY. IF NEED BE PATIENT HAS AGREE TO UNDERGO CT SCAN OF THE CHEST. IN THE WORST CASE SCENARIO, IF HE DOES HAVE NEOPLASM OF THE LUNGS, HE IS NOT GOING TO TOLERATE ANY AGGRESSIVE TREATMENT. Code(s): J98.4 - Other disorders of lung Plan: CHEST X-RAY ORDERED (4) Tachycardia determined by examination of pulse: Comment: HEART RATE RELATIVELY FAST, PROBABLY CONTRIBUTED BY USING ALBUTEROL INHALER BEFORE COMING OUT OF THE HOUSE. HE HAS CHRONIC HISTORY OF TACHYCARDIA. HIS PREVIOUS EKGS HAVE SHOWN SINUS RHYTHM WITH FREQUENT PREMATURE ATRIAL BEATS. Code(s): R00.0 - Tachycardia, unspecified Plan: PATIENT IS ADVISED TO GET APPOINTMENT FOR CARDIOLOGY CHECKUP AND FOLLOW-UP. HE WILL TALK TO HIS PRIMARY CARE PHYSICIAN ABOUT THIS . Orders: Orders AMB 6 minute walk Today J44.9 - Chronic obstructive pulmonary disease, unspecified XR chest 2V Today J44.9 - Chronic obstructive pulmonary disease, unspecified, J98.4 - Other disorders of lung, Z87.891 - Personal history of nicotine dependence Coding Level of Care Code Est Pt Level 4 (89630) Diagnoses Chronic obstructive pulmonary disease, unspecified COPD type J44.9 COPD type: unspecified COPD History of smoking at least 1 pack per day for at least 30 years Z87.891 Pulmonary cavitary lesion J98.4 Tachycardia determined by examination of pulse R00.0 CPT Codes Coding ([id number])
[2023-12-27 14:09] VITALS: BP 112/52; PULSE 139; O2SAT 94; BMI 15.6
[2023-12-27 15:23] VITALS: PULSE 128; O2SAT 97
== END 2023-12-27 14:49 | disposition home or self-care (01) ==
PROVIDERS: PCP Internal Medicine; Visit Provider Internal Medicine
DX: J44.9 Chronic obstructive pulmonary disease, unspecified (principal)
CPT/HCPCS: 94618; 99214

== ENCOUNTER 2024-01-24 11:20 | Outpatient (AMB) | payer MEDICARE, SELFPAY ==
[2024-01-24 11:29] VITALS: BP 82/40; PULSE 128; O2SAT 95; BMI 16.1
--- NOTE | 2024-01-24 11:29 | A.OFFVIS_ITS ---
Intake Vital Signs 01/24/24 11:29 Height 5 ft 8 in Weight 105 lb 13.15 oz BMI 16.1 BP 82/40 L Blood Pressure Location Lt brachial Position Sitting Pulse 128 H Pulse Source Pulse Oximeter Pulse Oximetry (%) 95 Oxygen Delivery Method Room Air Intake Visit Reasons: f/u Intake Note: pt is here for follow up and is not doing too well past few days, his legs are weak, don't want to walk anymore, short of breath with any movement, not much appetite but trying for one meal a day. 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 Allergies aspirin [ASPIRIN] Allergy (Intermediate, Verified 01/24/24 11:43) SWELLING, hives Medication List - Last Reconciled 01/24/24 by Gabriela Escobar MD ammonium lactate 5% (Lac-Hydrin Five) 1 appl topical BID PRN atorvastatin 40 mg PO BEDTIME 90 days Breo Ellipta 200-25 mcg/dose (fluticasone furoate-vilanterol) 1 ea PO DAILY NS cholecalciferol (vitamin D3) 25 mcg PO DAILY clopidogrel (Plavix) 75 mg PO DAILY 90 days hydroxyzine HCl 25 mg PO TID PRN 30 days ipratropium-albuterol 0.5 mg-3 mg(2.5 mg base)/3 mL 3 mL inhalation QID lisinopril 5 mg PO DAILY pantoprazole 40 mg PO DAILY 90 days prednisone 5 mg PO Q OTHER DAY Ventolin HFA 90 mcg/actuation (albuterol sulfate) 2 puffs PO QID NS Do you need a note to return to daycare/school/sports/work: No HPI f/u HPI Details 78 years old, pleasant but [facility] comes for follow-up after 1 month. 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 And previous history of cavitary pneumonia due to infected bullae . Breathing story he has remained stable even though he is short of breath most of the time. Luckily he does not have any sign of chest infection at this time. He has chronic malnutrition, with muscle wasting. He remains very weak , not able to walk much. Appetite is poor and he eats in small portions. He is using Breo once a day. Say is that he uses updraft only once or twice a day at the most. He is short of breath even at rest but on his last visit he did not qualify for oxygen. He feels quite full in his chest, and has tachycardia most of the time. 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) Insomnia Osteoporosis GERD without esophagitis Benign essential hypertension Smoker Smoker COPD (chronic obstructive pulmonary disease) Social History Household Members: Significant Other Housing: House Do you presently have visiting nurse or other home services: No Alcohol intake: current Alcohol intake frequency: 0-2 drinks per day Alcohol type: beer Patient Tobacco Use Status: Former Tobacco user e-Cigarette/Vaping Use: Never Used Second Hand Smoke Exposure: No service: No Current occupational status: retired Cognitive needs: No Hearing needs: No Vision needs: No Review of Systems Const Denies chills, Denies fatigue, Denies fever(s) and Denies headache(s) ENT Denies headache(s), Denies sinus pain and Denies sore throat Card Denies chest pain, Denies palpitations and Denies dyspnea Resp Denies cough and Denies dyspnea GI Denies abdominal pain, Denies constipation, Denies heartburn, Denies diarrhea, Denies nausea and Denies vomiting Denies dysuria and Denies nocturia Neuro Denies headache(s) Endo Denies fatigue and Denies palpitations Physical Exam Vital Signs: Last Vital Signs Pulse 128 H 01/24/24 11:29 BP 82/40 L 01/24/24 11:29 Pulse Ox 95 01/24/24 11:29 Oxygen Delivery Method Room Air 01/24/24 11:29 BMI result Body Mass Index 16.1 Const Other: He is of a thin build and appears comfortable and stable General: comfortable, no acute distress, alert and awake Orientation/consciousness: patient oriented x3 HEENT Head: Yes normal to inspection General nose exam: No nasal polyps present and No nasal discharge present Face and sinus: Yes sinuses nontender Mouth: oropharynx normal Throat: Yes posterior oropharynx normal Eyes General: appearance normal, both eyes and all related structures Neck Neck: Yes normal visual inspection, Yes no lymphadenopathy, Yes trachea midline and Yes no JVD Thyroid: Thyroid normal Chest Chest palpation & inspection: normal inspection of the chest, normal palpation of entire chest wall and no tenderness Resp Other: Percussion note hyper-resonant, breath sounds are distant with prolonged expiratory phase. No wheezes or rhonchi , and no crepitations are heard. Cardio Palpation: normal PMI Rate: regular rate and tachycardic (HR .ON WALKING IN 129 DURING EXAM SETTLED DOWN TO 118 BP is also low ) Rhythm: regular rhythm Heart sounds: no gallops and no murmurs GI Palpation (GI): Soft to palpation, nontender, No hepatosplenomegaly present and no masses Auscultation: normal bowel sounds Back/Spine/Pelvis Thoracic/Lumbar Spine: thoracic and lumbar spine normal to inspection and thoraco-lumbar ROM limited Skin General skin exam: no rashes or lesions noted Neuro General: patient oriented x3, No gait normal (His having difficulty in standing and walking due to weakness ) and no focal motor deficits (Except general muscular weakness) Cranial nerves: Yes CN's II-XII intact bilaterally Extrem General: Yes normal to inspection, Yes no clubbing, cyanosis or edema, Yes no calf tenderness and Yes other (Legs are very thin with some muscular wasting.) Psych Appearance: grossly normal Speech and movement: Normal speech and movement present Results Reviewed Results Reviewed: Chest x-ray on 12/27/2023 showed extensive bilateral areas of perihilar and upper lobe bronchiectases/bronchial thickening and large bilateral cavitary lesions. Assessment & Plan Assessment & Plan (1) COPD (chronic obstructive pulmonary disease): Comment: THIS GENTLEMAN HAS ADVANCED CHRONIC OBSTRUCTIVE PULMONARY DISEASE , DUE TO HIS LIFELONG SMOKING. IT IS RELATIVELY STABLE AT PRESENT. LUNGS ARE CLEAR AND WELL AERATED. Code(s): J44.9 - Chronic obstructive pulmonary disease, unspecified Qualifiers: COPD type: unspecified COPD Qualified Code(s): J44.9 - Chronic obstructive pulmonary disease, unspecified Plan: Continue present medical regimen including : BREO 200-251 INHALATION DAILY. DUONEB UPDRAFTS WITH IPRATROPIUM/ALBUTEROL . Q 6 HOURS ONLY P.R.N. VENTOLIN 2 PUFFS Q 4-6 HOURS P.R.N. WHEN OUTDOORS. (2) Smoker: Comment: HE HAS BEEN A HEAVY SMOKER IN THE PAST. LUCKILY HE QUIT SMOKING MORE THAN A YEAR AGO AND HAS NOT GONE BACK TO SMOKING Code(s): F17.200 - Nicotine dependence, unspecified, uncomplicated Plan: AGAIN COMMENDED FOR NOT SMOKING ANYMORE (3) Pulmonary cavitary lesion: Comment: PATIENT WAS TREATED FOR BILATERAL CAVITARY PNEUMONIA IN THE UPPER LOBES. POSSIBILITY OF INFECTED EMPHYSEMATOUS BULLAE , WAS CONSIDERED , TREATED WITH ANTIBIOTICS AND CLINICALLY IMPROVED. HE HAD BEEN ADVISED TO HAVE A PET SCAN OUTPATIENT. HOWEVER PATIENT DID NOT COME BACK FOR FOLLOW-UP. REPEAT CHEST X-RAY DID NOT SHOW ANY NEW CHANGE IN THE WORST CASE SCENARIO, IF HE DOES HAVE NEOPLASM OF THE LUNGS, HE IS NOT GOING TO TOLERATE ANY AGGRESSIVE TREATMENT. Code(s): J98.4 - Other disorders of lung Plan: WITH REPEAT CT SCAN OF THE CHEST AFTER THE NEXT OFFICE VISIT (4) Tachycardia determined by examination of pulse: Comment: HEART RATE RELATIVELY FAST, PROBABLY CONTRIBUTED BY USING ALBUTEROL INHALER BEFORE COMING OUT OF THE HOUSE. HE HAS CHRONIC HISTORY OF TACHYCARDIA. HIS PREVIOUS EKGS HAVE SHOWN SINUS RHYTHM WITH FREQUENT PREMATURE ATRIAL BEATS. TODAY HIS BLOOD PRESSURE WAS ALSO LOW 82 / 40 Code(s): R00.0 - Tachycardia, unspecified Plan: I ADVISED TO HOLD OFF TAKING LISINOPRIL. ADVISED TO TO GIVE HIM PLENTY OF FLUIDS ESPECIALLY GATORADE. SAMPLES OF BOOST. FOR NUTRITIONAL SUPPLEMENT ALSO GIVEN HE WAS URGE TO SEE HIS PRIMARY CARE PHYSICIAN. Coding Level of Care Code Est Pt Level 3 (28875) Diagnoses Chronic obstructive pulmonary disease, unspecified COPD type J44.9 COPD type: unspecified COPD Smoker F17.200 Pulmonary cavitary lesion J98.4 Tachycardia determined by examination of pulse R00.0
== END 2024-01-24 11:45 | disposition home or self-care (01) ==
PROVIDERS: PCP Internal Medicine; Visit Provider Internal Medicine
DX: J44.9 Chronic obstructive pulmonary disease, unspecified (principal); F17.200 Nicotine dependence, unspecified, uncomplicated; J98.4 Other disorders of lung; R00.0 Tachycardia, unspecified
CPT/HCPCS: 99213

== ENCOUNTER → 2024-01-24 11:20 | Outpatient (BNVA) | payer MEDICARE, SELFPAY | PROVIDERS: PCP Internal Medicine; Visit Provider Internal Medicine | DX: J44.9 Chronic obstructive pulmonary disease, unspecified (principal); J98.4 Other disorders of lung; R00.0 Tachycardia, unspecified; Z87.891 Personal history of nicotine dependence | CPT/HCPCS: 99212 ==

== ENCOUNTER 2024-02-02 02:27 | Inpatient (IN) | payer MEDICARE, SELFPAY ==
[2024-02-02] VITALS (23 sets, daily range): BP systolic 80–124; BP diastolic 39–90; PULSE 81–139; RESP 14–28; TEMP 35.6–39.4; O2SAT 88–100; BMI 15.6; BMI 14.2
--- NOTE | ~2024-02-02 | XR_ITS ---
EXAMINATION: XR CHEST CLINICAL INFORMATION: Shortness of breath COMPARISON: 02/02/2024 TECHNIQUE: Frontal view of the chest was obtained. FINDINGS: Redemonstrated multifocal opacities of the mid and lower right lung, without significant change from 02/02/2024. Redemonstrated cavitary spaces bilaterally, better demonstrated on recent CT. No convincing new consolidation bilaterally. No evidence of pneumothorax or significant pleural effusion. The cardiomediastinal silhouette is stable. Calcification is present at the aortic arch. No acute osseous findings are seen. XR/XR chest 1V IMPRESSION: Redemonstrated multifocal opacities of the mid and lower right lung, without significant change from 02/02/2024. No convincing new consolidation.
--- NOTE | ~2024-02-02 | XR_ITS ---
EXAMINATION: XR CHEST CLINICAL INFORMATION: Intubated, NG tube and right IJ central venous catheter COMPARISON: Chest x-ray from the same day TECHNIQUE: Frontal view of the chest was obtained. FINDINGS: Endotracheal tube tip lies approximately 1.6 cm above the ivett. Enteric tube courses below the diaphragm. Right IJ central line tip lies in the region of the distal SVC. Lung volumes are symmetric. Redemonstrated multifocal opacities of the mid to lower right lung. Redemonstrated cavitary spaces bilaterally and generalized coarsening of the perihilar interstitium. No appreciable pneumothorax or pleural effusion. Cardiac size is within normal limits. Calcification is present at the aortic arch. No acute osseous findings are seen. XR/XR chest 1V IMPRESSION: Endotracheal tube tip approximately 1.6 cm above the ivett. Right IJ central line tip in the region of the distal SVC. Enteric tube courses below the diaphragm. Redemonstrated multifocal opacities of the mid to lower right lung.
--- NOTE | ~2024-02-02 | XR_ITS ---
EXAMINATION: XR CHEST CLINICAL INFORMATION: Cough COMPARISON: 12/27/2023 TECHNIQUE: Frontal view of the chest was obtained. FINDINGS: Lung volumes are symmetric. In comparison to the prior examination there are new multifocal regions of opacity in the mid and lower right lung. Nodular foci identified on prior CT 09/09/2023 are not as well demonstrated radiographically. No appreciable pneumothorax. Redemonstrated cavitary spaces bilaterally, better delineated on prior CT. No significant pleural effusion. Cardiac size is within normal limits. There is atherosclerotic calcification along the aorta. No acute osseous findings are seen. XR/XR chest 1V IMPRESSION: New multifocal regions of opacity in the mid and lower right lung, suspicious for pneumonia. Imaging follow-up is recommended to assess for resolution.
--- NOTE | ~2024-02-02 | CT_ITS ---
EXAMINATION: CT CHEST WITHOUT CONTRAST CLINICAL INFORMATION: Hypoxic, unresponsive COMPARISON: 09/09/2023 TECHNIQUE: Multidetector volumetric CT imaging of the chest was done. Axial MIP volume rendering provided. Sagittal and coronal reformatted images were obtained. This CT examination was performed using dose optimization techniques as appropriate, variously including the following: *Automated exposure control *Adjustment of mA and/or kV according to patient size (this includes techniques or standardized protocols for targeted exams where dose is matched to indication/reason for exam; i.e. extremities or head) *Use of iterative reconstruction technique DLP: 284 mGy-cm FINDINGS: LUNGS: Endotracheal tube tip lies approximately 1.5 cm above the ivett. There is moderate to severe emphysema with upper lobe predominance. Linear opacity at the left apex is suspected to reflect scarring. Irregularly-shaped cavitary space is redemonstrated in the left lower lobe measuring up to approximately 6.2 x 4.5 cm in the axial plane, similar to prior. There is redemonstration of patchy and nodular opacities in the left lower lobe, with some areas appearing mildly more extensive than on 09/09/2023. Redemonstrated cavitary space at the right apex measuring up to approximately 8.3 x 7.7 cm, similar to possibly slightly increased from prior. Interval decrease in the adjacent right upper lobe consolidation compared to prior. There are persistent patchy/nodular opacities adjacent to the lateral margin of the cavity in the posterior right upper lobe. Scattered and somewhat clustered appearance of nodularity in the right middle lobe is similar to slightly improved in some regions compared to prior. There are increasing multifocal regions of consolidation within the right lower lobe including superiorly and in the anterior basal region, suspicious for an infectious etiology. Additional patchy/nodular consolidations are present in the medial right lower lobe, also increased from prior. MEDIASTINUM: Thyroid gland is grossly unremarkable. Mildly prominent subcarinal and paratracheal lymph nodes are suspected to be reactive. Cardiac size is within normal limits; no pericardial effusion. There is atherosclerotic calcification along the aorta. CORONARY ARTERY CALCIFICATION: Present PLEURA: Trace pleural effusions. AXILLA: No lymphadenopathy. UPPER ABDOMEN: Enteric tube courses into the stomach. OSSEOUS STRUCTURES: Degenerative changes are noted in the spine. CT/CT chest wo IV con IMPRESSION: 1. Endotracheal tube tip lies approximately 1.5 cm above the ivett. 2. Moderate to severe emphysema with upper lobe predominance. 3. Increasing multifocal regions of consolidation in the right lower lobe compared to 09/09/2023 and consistent with today's earlier radiograph, suspicious for an infectious etiology. Treatment/resolution of symptoms would be helpful to assess for resolution and exclude underlying neoplastic nodule. 4. Redemonstrated patchy and nodular opacities in the left lower lobe, with some areas appearing mildly more extensive than on 09/09/2023. Follow-up CT after 5. Redemonstrated cavitary spaces bilaterally, similar to possibly increased in size on the right from prior. 6. Mildly prominent mediastinal lymph nodes, suspected to be reactive. 7. Trace pleural effusions. 8. Coronary artery calcifications. Correlation with cardiac risk factors is recommended.
--- NOTE | ~2024-02-02 | CT_ITS ---
EXAMINATION: CT ABDOMEN ANGIOGRAM AND PELVIS WITH CONTRAST CLINICAL INFORMATION: Met acid. ? bleed COMPARISON: 02/24/2017 TECHNIQUE: Initial noncontrast imaging of the abdomen/pelvis. Multidetector volumetric images were obtained from the superior aspect of the liver through the pubic symphysis following administration 80 mL of Omnipaque 350 intravenous contrast in arterial and delayed phases. Sagittal and coronal reformatted images were obtained on the technologist's workstation. MIP images were also obtained. This CT examination was performed using dose optimization techniques as appropriate, variously including the following: *Automated exposure control *Adjustment of mA and/or kV according to patient size (this includes techniques or standardized protocols for targeted exams where dose is matched to indication/reason for exam; i.e. extremities or head) *Use of iterative reconstruction technique DLP: 284 mGy-cm FINDINGS: LUNG BASES: Findings are described on accompanying chest CT. LIVER, GALLBLADDER, AND BILIARY TREE: The liver is normal in size, shape, and attenuation. No focal hepatic lesion or biliary ductal dilatation is present. Periportal edema noted. Gallbladder appears partially contracted with adjacent stranding/fluid. PANCREAS: Unremarkable. SPLEEN: Unremarkable. ADRENAL GLANDS: Unremarkable. KIDNEYS AND URETERS: Postcontrast nephrograms appear symmetric. No hydronephrosis or obstructing calculus bilaterally. Small right renal lesions are favored to represent cysts; no follow-up recommended. BLADDER: Carpenter catheter in place. Mildly distended with a diffusely thick-walled appearance. GASTROINTESTINAL TRACT: Enteric tube courses into the stomach. Thick-walled appearance of the gastric antrum/pylorus, which could be due to incomplete distention. No evidence of bowel obstruction. Limited evaluation for wall thickening in the descending and sigmoid colon due to luminal collapse. The appendix is unremarkable. Small volume of pelvic free fluid. No free air is seen. ABDOMINAL WALL: Anasarca noted. LYMPH NODES: Normal. VASCULAR: No active hemorrhage identified. There is extensive atherosclerotic plaque and calcification along the aorta and bilateral iliac arteries. Aorta appears normal in caliber. The celiac, superior, and inferior mesenteric arteries are patent. Bilateral renal arteries are patent with mild to moderate calcifications at the origins. Multifocal moderate to severe narrowing of the common iliac arteries bilaterally. 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 PELVIC VISCERA: Prostate gland appears prominent in size. OSSEOUS STRUCTURES: Multilevel degenerative changes in the spine. CT/CT angio abdomen pelvis IMPRESSION: 1. No active hemorrhage identified. 2. Extensive atherosclerotic disease of the aorta and iliac arteries. 3. Stranding/fluid adjacent to the gallbladder. If there is clinical concern for acute cholecystitis, this would be better assessed with ultrasound. 4. Thick-walled appearance of the urinary bladder, which could be due to underdistention or cystitis. Correlation with urinalysis is recommended. 5. Thick-walled appearance of the gastric antrum/pylorus, which could be due to incomplete distention or gastritis in the proper clinical setting. 6. Small volume of pelvic free fluid. Anasarca.
--- NOTE | 2024-02-02 02:33 | ECG_ITS ---
Test Reason : TACHYCARDIA Blood Pressure : / mmHG Vent. Rate : 140 BPM Atrial Rate : 141 BPM P-R Int : 140 ms QRS Dur : 066 ms QT Int : 370 ms P-R-T Axes : 083 071 083 degrees QTc Int : 564 ms Sinus tachycardia Low voltage QRS Nonspecific ST and T wave abnormality Abnormal ECG When compared with ECG of 09-SEP-2023 18:15, Premature atrial complexes are no longer Present Referred By: Jaelyn Morrison Electronically Signed By:Magen Hooks
--- NOTE | 2024-02-02 02:35 | PC.NURSE ---
pt biba from home, mostly vincentian speaking only, where called for increasing shortness of breath, pt reports having shortness of breath for one week. upon arrival pt placed on non rebreather 15L and sating 100%. pt noted to have rectal temperature at this time and tachycardia. provider aware at this time, sepsis alert called at 0235. 20G placed in right AC, labs obtained and sent to lab. ordered 500ml bolus, bolus administered at this time.
--- NOTE | 2024-02-02 02:42 | ED_ITS ---
HPI - SOB/Dyspnea General Chief Complaint: Dyspnea Stated Complaint: copd Time Seen by Provider: 02/02/24 02:32 Source: patient and EMS Mode of arrival: EMS History of Present Illness HPI Narrative: 78-year-old male with history of increasing shortness of breath, known to have COPD and be an everyday smoker. Patient had a nebulized treatment as well as 0.5 mg of Ativan at home. Related Data Home Medications Medication Instructions Recorded Confirmed cholecalciferol (vitamin D3) 25 25 mcg PO DAILY 02/22/23 01/24/24 mcg (1,000 unit) capsule Previous Rx's Medication Instructions Recorded lisinopril 5 mg tablet 5 mg PO DAILY #90 tabs 06/21/23 pantoprazole 40 mg tablet,delayed 40 mg PO DAILY 90 days #90 tabs 10/10/23 release ammonium lactate 5 % lotion 1 appl topical BID PRN dry 10/14/23 (Lac-Hydrin Five) skin/itching #226 grams Breo Ellipta 200 mcg-25 mcg/dose 1 ea PO DAILY #60 ea 11/14/23 powder for inhalation (fluticasone furoate-vilanterol) Ventolin HFA 90 mcg/actuation 2 puff PO QID #18 ea 11/14/23 aerosol inhaler (albuterol sulfate) ipratropium 0.5 mg-albuterol 3 mg 3 ml inhalation QID #360 mL 12/06/23 (2.5 mg base)/3 mL nebulization soln prednisone 5 mg tablet 5 mg PO Q OTHER DAY #14 tabs 01/10/24 atorvastatin 40 mg tablet 40 mg PO BEDTIME 90 days #90 tabs 02/01/24 clopidogrel 75 mg tablet (Plavix) 75 mg PO DAILY 90 days #90 tabs 02/01/24 hydroxyzine HCl 25 mg tablet 25 mg PO TID PRN itching 30 days 02/01/24 #90 tabs Allergies Allergy/AdvReac Type Severity Reaction Status Date / Time aspirin [ASPIRIN] Allergy Intermediate SWELLING, Verified 02/02/24 04:07 hives Review of Systems 2 Review of Systems: Pertinent positives and negatives as stated in the HPI [facility] Past Medical History Source: nursing notes reviewed Medical History Tachycardia determined by examination of pulse History of smoking at least 1 pack per day for at least 30 years 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) Insomnia Osteoporosis GERD without esophagitis Benign essential hypertension Smoker Smoker COPD (chronic obstructive pulmonary disease) Social History Social History Household Members: Significant Other Housing: House Do you presently have visiting nurse or other home services: No Alcohol intake: current Alcohol intake frequency: 0-2 drinks per day Alcohol type: beer Patient Tobacco Use Status: Former Tobacco user Smoked in Last 30 Days: No e-Cigarette/Vaping Use: Never Used Second Hand Smoke Exposure: No Use of substances other than those prescribed or required for medical reasons: No Advance Directives: No Advance Directives Information Provided: No service: No Current occupational status: retired Cognitive needs: No Hearing needs: No Vision needs: No Physical Exam 2 Vital Signs: Vital Signs: Last Vital Signs Temp 100.9 F H 02/02/24 03:38 Pulse 134 H 02/02/24 04:15 Resp 16 02/02/24 04:15 BP 105/47 L 02/02/24 04:15 Pulse Ox 98 02/02/24 04:15 O2 Del Method Oxymask 02/02/24 04:15 O2 Flow Rate 4 02/02/24 04:15 Oxygen Flow Rate 15 02/02/24 02:34 BMI result Body Mass Index 14.2 VITAL SIGNS: Reviewed. GENERAL: Cachectic, elderly, frail HEAD: Normocephalic/atraumatic EYES: PERRLA, EOMI EARS: Ext canals without abnormality NOSE: Nares patent bilateral OROPHARYNX: no oral lesions noted, posterior pharynx clear NECK: Supple, no adenopathy LUNGS: Decreased breath sounds bilaterally, increased work of breathing and tachypnea is present, patient on 100% non-rebreather. CARDIOVASCULAR: Regular rate and rhythm without noted murmurs, no JVD or lower extremity edema. ABDOMEN: Soft, non-tender, non-distended with bowel sounds. MUSCULOSKELETAL: No tenderness, deformities, or effusions noted on gross inspection. EXTREMITIES: No cyanosis, clubbing or edema. SKIN: Inspection of the skin reveals no rashes NEUROLOGIC: Alert and oriented x 4. Strength and sensation to light touch were grossly intact x 4. Medications Administered Generic Name Dose Route Start Last Admin Trade Name Freq PRN Reason Stop Dose Admin Sodium Chloride 1,000 mls @ 999 mls/hr 02/02/24 03:45 02/02/24 03:57 Ns IV 02/02/24 04:45 999 mls/hr .Q1H1M DAMIEN Administration Sodium Chloride 1,236 mls @ 1,236 mls/hr 02/02/24 03:44 02/02/24 03:51 Ns 30 ml/kg infuse over 1 hr (1236 ml) 02/02/24 04:43 1,236 mls/hr IV Administration .Q1H STA Discontinued Medications Generic Name Dose Route Start Last Admin Trade Name Freq PRN Reason Stop Dose Admin Acetaminophen 975 mg 02/02/24 02:37 02/02/24 02:59 Acetaminophen 325 Mg Tablet PO 02/02/24 02:38 975 mg ONCE ONE Administration Albuterol Sulfate 5 mg/ 7.5 mg 02/02/24 03:18 02/02/24 03:31 Albuterol Sulfate 2.5 mg INHALE 02/02/24 03:19 7.5 mg ONCE ONE Administration Albuterol Sulfate 7.5 mg/ 0 mg 02/02/24 02:35 02/02/24 02:46 Albuterol/Ipratropium 3 ml INHALE 02/02/24 02:36 1 each ONCE ONE Administration Piperacillin Sod/Tazobactam 50 mls @ 100 mls/hr 02/02/24 02:37 02/02/24 03:24 Sod 3.375 gm/ Sodium Chloride IV 02/02/24 03:06 Infused ONCE ONE Infusion Sodium Chloride 500 mls @ 999 mls/hr 02/02/24 02:45 02/02/24 03:21 Ns IV 02/02/24 03:15 Infused .Q31M DAMIEN Infusion Magnesium Sulfate 2 gm in 50 mls @ 150 mls/hr 02/02/24 03:06 02/02/24 03:48 Magnesium Sulfate/H2o IV 02/02/24 03:25 Infused ONCE ONE Infusion Methylprednisolone Sodium Succinate 60 mg 02/02/24 02:34 02/02/24 03:02 Methylprednisolone Sod Succ 125 Mg/2 Ml Vial IVPUSH 02/02/24 02:35 60 mg ONCE ONE Administration Medical Decision Making Medical Decision Making [facility] Narrative: 0244: 78-year-old male with history and clinical presentation, DDX: COPD, pneumonia, viral illness. INTERVENTION: IV access, 500 cc IV fluids, ED bronch protocol, steroids, OxyMask, lactic acid, blood culture, antibiotics, antipyretics I reviewed all investigations and hematologic indices demonstrate leukocytosis with left shift and increase platelet count with chronically stable microcytic anemia. Coagulation studies are elevated. VBG does not demonstrate respiratory acidosis and no evidence of hypercapnia to better explain patient's respiratory distress. Chemistry indices do not demonstrate AALIYAH and there is no electrolyte derangement, lactic acid is noted be elevated but likely secondary to nebulized treatments, magnesium is noted to be 1 which was also appreciated on EKG and patient will receive 2 g of magnesium sulfate. Otherwise, LFTs are within normal limits. Viral testing negative for influenza/RSV/COVID. Chest x-ray demonstrates multifocal pneumonia. 0345: Hypotension gave sepsis fluid bolus 0425: I discussed case with inpatient hospitalist who accepts admission. 0445: On re-evaluation of patient blood pressure is responding well to sepsis fluid bolus, he continues to oxygenate well and appears to have decreased tachypnea and decreased work of breathing. Differential Diagnosis Differential Diagnoses: The differential diagnosis associated with the presentation includes Please see the discussion above Admission/Observation Consideration of admission/observation: Escalation of care including admission/observation considered Please see the discussion above Consult Healthcare Provider Management of the patient was discussed with: Hospitalist Please see the discussion above Lab Data MDM Lab Attestation statement: I reviewed the patient's lab results. Please see the discussion above 02/02/24 02:51 02/02/24 02:51 Labs: Lab Results 02/02/24 02/02/24 Range/Units 02:51 02:54 WBC 21.1 H (4.8-10.8) X10*3/uL RBC 3.70 L (4.60-5.80) X10*6/uL Hgb 8.4 L (14.0-18.0) g/dl Hct 27.3 L (42.0-52.0) % MCV 73.8 L (80.0-98.0) fL MCH 22.7 L (27.0-33.0) pg MCHC 30.8 L (31.0-36.0) g/dl RDW 16.2 H (11.0-16.0) % Plt Count 592 H D (160-400) X10*3/uL MPV 9.8 (9.4-12.4) fL Immature Gran % (Auto) 1.3 H (0.0-0.4) % Neut % (Auto) 92.4 H (45-73) % Lymph % (Auto) 1.4 L (20-40) % [place] % (Auto) 4.5 (2-11) % Eos % (Auto) 0.2 (0-4) % Baso % (Auto) 0.2 (0-2) % Lymph # (Auto) 0.3 L (1.2-4.9) X10*3/uL [place] # (Auto) 1.0 (0.1-1.2) X10*3/uL Eos # (Auto) 0.1 (0.0-0.4) X10*3/uL Baso # (Auto) 0.0 (0.0-0.2) X10*3/uL Abs Immat Gran (auto) 0.27 H (0.00-0.03) X10*3/uL Absolute Neuts (auto) 19.5 H (2.0-8.3) x10*3/uL Absolute Nucleated RBC 0.000 (0.0-0.012) X10*3/uL Nucleated RBC % (auto) 0.0 (0.0-0.2) /100WBC Smear Tech's Comments VERIFIED PT 15.6 H D (11.1-13.3) SEC INR 1.3 H (0.9-1.1) VBG pH 7.35 (7.32-7.43) VBG pCO2 47 mmHg VBG pO2 43 mmHg VBG HCO3 26 (22-26) mmol/L VBG O2 Saturation 59.0 % VBG Base Excess 0.4 mmol/L Sodium 135 (135-145) mmol/L Potassium 4.5 (3.3-5.1) mmol/L Chloride 97 (96-108) mmol/L Carbon Dioxide 25 (22-29) mmol/L Anion Gap 18 (12-20) BUN 19 H (9-16) mg/dL Creatinine 0.91 (0.5-1.4) mg/dL Estim Creat Clear Calc 39.6 Estimated GFR > 60 Random Glucose 175 H (60-115) mg/dL Lactic Acid 3.9 H* (0.5-2.0) mmol/L Calcium 9.9 (8.4-10.2) mg/dL Magnesium 1.0 L* (1.6-2.6) mg/dL Total Bilirubin 0.9 (0.0-1.0) mg/dL AST 12 (5-37) U/L ALT 9 (0-40) U/L Alkaline Phosphatase 109 (39-117) U/L Total Protein 6.8 (6.5-8.0) g/dL Albumin 3.1 L (3.5-5.0) g/dL Influenza Type A (PCR) NEGATIVE (Negative) Influenza Type B (PCR) NEGATIVE (Negative) RSV RNA Qual (PCR) NEGATIVE (Negative) SARS-CoV-2 RNA (RT-PCR) NEGATIVE (Negative) Independent Interpretation I performed an independent interpretation of an: EKG Interpretation: Sinus tachycardia, HR-140, no STEMI, DE/QRS is within normal limits and QTC is noted be prolonged (gave patient magnesium sulfate 2 g) Radiology Impression Discussion of test interpretation with radiology: I have reviewed the radiologist's reading. Radiologist Impression: Please see the discussion above External Record Review External record reviewed: Inpatient record, Outpatient record and Prior outpatient labs Chronic Conditions COPD Critical Care Time Critical Care Time Critical Care Time: Yes Total Critical Care Time: 60 Attestation: I personally attest to this time spent taking care of the patient. Discharge Plan Discharge Clinical Impression: COPD (chronic obstructive pulmonary disease), Pneumonia, Acute hypoxemic respiratory failure, Severe sepsis Patient Disposition: Admitted As Inpatient
[2024-02-02] MEDS: Albuterol Sulfate 7.5 MG, Albuterol/Iprat 2.5/0.5MG 3 ML 3 ML INHALE (02:46)
[2024-02-02] MEDS: 0.9 % Sodium Chloride 500 ML 999 ML IV (02:50)
[2024-02-02] MEDS: Piperacillin Sodium/Tazobactam 3.375 GM in 0.9 % Sodium Chloride 50 ML IV ×3 (02:54→18:22)
[2024-02-02 02:58] LABS: Basophils Percent Auto 0.2 % (0-2); Eosinophils Absolute Auto 0.1 X10*3/uL (0.0-0.4); Eosinophils Percent Auto 0.2 % (0-4); Hematocrit 27.3 % (42.0-52.0); Hemoglobin 8.4 g/dl (14.0-18.0); Imm Gran Abs Auto 0.27 X10*3/uL (0.00-0.03); Imm Gran Pct Auto 1.3 % (0.0-0.4); Lymphocytes Absolute Auto 0.3 X10*3/uL (1.2-4.9); Lymphocytes Percent Auto 1.4 % (20-40); MANUAL DIFF FLAG SCAN; Mean Corpuscular HGB Conc 30.8 g/dl (31.0-36.0); Mean Corpuscular Hemoglobin 22.7 pg (27.0-33.0); Mean Corpuscular Volume 73.8 fL (80.0-98.0); Mean Platelet Volume 9.8 fL (9.4-12.4); Monocytes Percent Auto 4.5 % (2-11); Neutrophils Absolute Auto 19.5 x10*3/uL (2.0-8.3); Neutrophils Percent Auto 92.4 % (45-73); Platelet Count 592 X10*3/uL (160-400); Red Cell Distribution Width 16.2 % (11.0-16.0); SCAN SMEAR FLAG 1; White Blood Count 21.1 X10*3/uL (4.8-10.8)
[2024-02-02] MEDS: Acetaminophen 325 MG TABLET 975 MG PO (02:59)
[2024-02-02 03:00] LABS: Venous Blood Gas Refer to POC result
[2024-02-02 03:01] LABS: VBG Base Excess 0.4 mmol/L; VBG HCO3 26 mmol/L (22-26); VBG pCO2 47 mmHg; VBG pH 7.35 (7.32-7.43); VBG pO2 43 mmHg
[2024-02-02] MEDS: methylPREDNISolone Sod Succ 125 MG/2 ML VIAL 60 MG IVPUSH (03:02)
[2024-02-02 03:13] LABS: INTERNATIONAL NORM RATIO 1.3 (0.9-1.1); Prothrombin Time 15.6 SEC (11.1-13.3)
[2024-02-02 03:15] LABS: Lactic Acid 3.9 mmol/L (0.5-2.0)
[2024-02-02 03:16] LABS: SLIDE REVIEW VERIFIED
[2024-02-02 03:20] LABS: Anion Gap 18 (12-20)
[2024-02-02 03:23] LABS: Alanine Aminotransferase 9 U/L (0-40); Albumin Level 3.1 g/dL (3.5-5.0); Alkaline Phosphatase 109 U/L (39-117); Aspartate Amino Transferase 12 U/L (5-37); Bilirubin Total 0.9 mg/dL (0.0-1.0); Blood Urea Nitrogen 19 mg/dL (9-16); Calcium 9.9 mg/dL (8.4-10.2); Carbon Dioxide 25 mmol/L (22-29); Chloride 97 mmol/L (96-108); Creatinine Clr Calc Pharmacy 39.6; Estimated Glomerular Filt Rate > 60; Glucose Random 175 mg/dL (60-115); Potassium 4.5 mmol/L (3.3-5.1); Sodium 135 mmol/L (135-145); Total Protein 6.8 g/dL (6.5-8.0)
[2024-02-02] MEDS: Magnesium Sulfate/H2O 2 GM/50 ML PIGGYBACK IV (03:28)
[2024-02-02] MEDS: Albuterol Sulfate 5 MG, Albuterol Sulfate (0.083%) 2.5 MG 7.5 MG INHALE (03:31)
[2024-02-02 03:35] LABS: Influenza A PCR NEGATIVE (Negative); Influenza B PCR NEGATIVE (Negative); Resp Syncy Virus RNA Qual PCR NEGATIVE (Negative); SARS COV2 PCR INHOUSE NEGATIVE (Negative)
--- NOTE | 2024-02-02 03:39 | PC.NURSE ---
hour one sepsis alert called over head, vital signs updated, aware.
--- NOTE | 2024-02-02 03:55 | PC.NURSE ---
provider aware of pt BP after 500ml bolus, 30ml/kg fluid bolus ordered and administered per jan.
[2024-02-02] MEDS: 0.9 % Sodium Chloride 1,000 ML 999 ML IV (03:57)
--- NOTE | 2024-02-02 04:36 | PC.NURSE ---
hour two sepsis alert called overhead, pt vital signs updated, provider aware.
[2024-02-02 04:55] LABS: Reflex Lactate? Lactic Acid Added
--- NOTE | 2024-02-02 05:07 | PC.NURSE ---
at bedside to assess pt care plan at this time.
--- NOTE | 2024-02-02 05:39 | PC.NURSE ---
hour three sepsis alert called overhead, vital signs updated, provider aware.
[2024-02-02 05:51] LABS: ~Lactic Acid-LAB USE ONLY 2.4 mmol/L (0.5-2.0)
[2024-02-02 05:52] LABS: Alanine Aminotransferase 6 U/L (0-40); Albumin Level 2.2 g/dL (3.5-5.0); Alkaline Phosphatase 61 U/L (39-117); Anion Gap 15 (12-20); Aspartate Amino Transferase 9 U/L (5-37); Bilirubin Total 0.6 mg/dL (0.0-1.0); Blood Urea Nitrogen 18 mg/dL (9-16); Calcium 7.7 mg/dL (8.4-10.2); Carbon Dioxide 20 mmol/L (22-29); Chloride 106 mmol/L (96-108); Creatinine Clr Calc Pharmacy 47.4; Estimated Glomerular Filt Rate > 60; Glucose Random 170 mg/dL (60-115); Potassium 3.6 mmol/L (3.3-5.1); Sodium 137 mmol/L (135-145); Total Protein 4.9 g/dL (6.5-8.0)
--- NOTE | 2024-02-02 06:21 | PM.IMHP ---
History of Present Illness Date of Service: 02/02/24 Attending physician on admission: Andrews Larson Chief Complaint: Shortness on breath Joshua Zimmerman is a 78 years old man with past medical history significant for COPD -no home oxygen presents to the emergency department complaining of worsening shortness on breath over the last few days. He denied chest pain, cough, fevers or chills. He denied any gastrointestinal or genitourinary symptoms. He is a former tobacco smoker -with many years ago. He denies alcohol abuse or illicit drug use. In the ED in the ED he was found to have significant tachycardia 130s, hypotension and fever (100.9). He is currently requiring 2 L/min oxygen via mask. Blood workup is remarkable for leukocytosis, 21.1 lactic acidosis (3.9). Lactic acidosis improving (last is 2.4 after IV fluids). There is significant hypomagnesemia. LFTs are normal. Renal function is normal. VBG showed no lactic acidosis. CXR showed new multifocal regions of opacity in the mid and lower right lung suspicious for pneumonia. ED tx: Solu-Medrol 60 mg IV, Zosyn 3.375 g IV, magnesium 2 g IV, NS (30 ml/kg) and multiple breathing treatments. Review of Systems Review of Systems: All 12 systems were reviewed and normal except as noted in HPI. 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) Insomnia Osteoporosis GERD without esophagitis Benign essential hypertension Smoker Smoker COPD (chronic obstructive pulmonary disease) Social History Household Members: Significant Other Housing: House Do you presently have visiting nurse or other home services: No Alcohol intake: current Alcohol intake frequency: 0-2 drinks per day Alcohol type: beer Patient Tobacco Use Status: Former Tobacco user Smoked in Last 30 Days: No e-Cigarette/Vaping Use: Never Used Second Hand Smoke Exposure: No Use of substances other than those prescribed or required for medical reasons: No Advance Directives: No Advance Directives Information Provided: No Nutrition Risks: No Nutritional Risk service: No Current occupational status: retired Cognitive needs: No Hearing needs: No Vision needs: No Meds Allergies Allergy/AdvReac Type Severity Reaction Status Date / Time aspirin [ASPIRIN] Allergy Intermediate SWELLING, Verified 02/02/24 04:07 hives Active Medications: Current Medications Acetaminophen (Acetaminophen 325 Mg Tablet) 650 mg PO Q6H PRN PRN Reason: Pain, Mild (Pain Scale 1-3) Albuterol/Ipratropium (Albuterol/Iprat 2.5/0.5mg 3 Ml Ampul.Neb) 3 ml INHALE RQ4H WHILE AWAKE [facility] Piperacillin Sod/Tazobactam (Sod 3.375 gm/ Sodium Chloride) 50 mls @ 100 mls/hr IV Q6H DAMIEN Methylprednisolone Sodium Succinate (Methylprednisolone Sod Succ 40 Mg/Ml Vial) 40 mg IVPUSH Q8H DAMIEN Sodium Chloride (0.9 % Sodium Chloride Flush 3 Ml Syringe) 3 ml IVFLUSH QSHIFT [facility] Home Medications Medication Instructions Recorded Confirmed Last Taken Type cholecalciferol (vitamin D3) 25 25 mcg PO DAILY 02/22/23 01/24/24 09/09/23 History mcg (1,000 unit) capsule pantoprazole 40 mg tablet,delayed 40 mg PO DAILY 02/02/24 02/02/24 Unknown History release Physical Exam Vital Signs and Narrative: Vital Signs: Last Vital Signs Temp 98.4 F 02/02/24 06:00 Pulse 98 02/02/24 06:00 Resp 15 02/02/24 06:00 BP 107/51 L 02/02/24 06:00 Pulse Ox 99 02/02/24 06:00 O2 Del Method Nasal Cannula 02/02/24 06:00 O2 Flow Rate 3 02/02/24 06:00 Oxygen Flow Rate 15 02/02/24 02:34 BMI result Body Mass Index 14.2 Constitutional - Awake and Alert, No apparent distress. Wearing facemask. Cooperative HEENT - Normocephalic. Atraumatic. Normal. Moist oral mucosa Heart- tachycardia. Normal rate. No murmur. Lung - decreased lung expansion, Normal respiratory effort, No respiratory distress, tachypnea. Decreased breath sound bilaterally with occasional inspiratory wheezing. No crackles. No rhonchi Abdomen - NT / ND; +BS; No rebound or guarding Extremities - no calf tenderness bilaterally, no swelling Musculoskeletal - Normal inspection, normal ROM Skin - Warm/Dry Neurological - Alert & oriented x3. No focal weakness grossly noted. Normal speech. Psychological - Appropriate affect Results Labs 02/02/24 02:51 02/02/24 05:27 Labs: Laboratory Results - last 24 hr 02/02/24 02/02/24 02/02/24 02:51 02:54 05:27 MCV 73.8 L MCH 22.7 L MCHC 30.8 L RDW 16.2 H Plt Count 592 H D MPV 9.8 Immature Gran % (Auto) 1.3 H Neut % (Auto) 92.4 H Lymph % (Auto) 1.4 L [place] % (Auto) 4.5 Eos % (Auto) 0.2 Baso % (Auto) 0.2 Lymph # (Auto) 0.3 L [place] # (Auto) 1.0 Eos # (Auto) 0.1 Baso # (Auto) 0.0 Abs Immat Gran (auto) 0.27 H Absolute Neuts (auto) 19.5 H Absolute Nucleated RBC 0.000 Nucleated RBC % (auto) 0.0 Smear Tech's Comments VERIFIED PT 15.6 H D INR 1.3 H VBG pH 7.35 VBG pCO2 47 VBG pO2 43 VBG HCO3 26 VBG O2 Saturation 59.0 VBG Base Excess 0.4 Anion Gap 18 15 Estim Creat Clear Calc 39.6 47.4 Estimated GFR > 60 > 60 Random Glucose 175 H 170 H Lactic Acid 3.9 H* Lactic Acid F/U @ 2Hr 2.4 H* Calcium 9.9 7.7 L D Magnesium 1.0 L* Total Bilirubin 0.9 0.6 AST 12 9 ALT 9 6 Alkaline Phosphatase 109 61 Total Protein 6.8 4.9 L Albumin 3.1 L 2.2 L Influenza Type A (PCR) NEGATIVE Influenza Type B (PCR) NEGATIVE RSV RNA Qual (PCR) NEGATIVE SARS-CoV-2 RNA (RT-PCR) NEGATIVE Imaging Radiologist's Impressions: Impressions Chest X-Ray 02/02/24 03:06 IMPRESSION: New multifocal regions of opacity in the mid and lower right lung, suspicious for pneumonia. Imaging follow-up is recommended to assess for resolution. Assessment and Plan (1) Severe sepsis: Status: Acute (2) Pneumonia: Qualifiers: Pneumonia type: due to unspecified organism Laterality: right Lung location: lower lobe of lung Qualified Code(s): J18.9 - Pneumonia, unspecified organism Status: Acute (3) COPD (chronic obstructive pulmonary disease): Qualifiers: COPD type: COPD with acute exacerbation Qualified Code(s): J44.1 - Chronic obstructive pulmonary disease with (acute) exacerbation Status: Acute (4) Hypoxic respiratory failure: Qualifiers: Chronicity: acute Qualified Code(s): J96.01 - Acute respiratory failure with hypoxia Status: Acute Plan Joshua Zimmerman is a 78 years old man admitted with: Hypoxic respiratory failure secondary to pneumonia associated with acute exacerbation of chronic obstructive pulmonary disease. Admit to hospitalist service. Telemetry. Pulse oximetry. Continue supplemental oxygen to keep oxygen saturation > 90%. Continue bronchodilator therapy and IV steroids. Continue empiric IV antibiotic therapy with Zosyn. Severe sepsis secondary to pneumonia. Continue maintenance IV fluids (pt received NS 30 ml/kg) empiric IV antibiotic therapy. Continue to monitor vital signs closely. Continue to monitor lactic acid. Blood cultures obtained -will follow results. Anemia, chronic. Hemoglobin trending down. Continue to monitor H&H. Lactic acidosis secondary to severe sepsis, improving. Continue to monitor lactic acid. Essential hypertension. Lisinopril on hold due to low BP. History of TIA. Continue Plavix and statin. DVT prophylaxis: On Plavix Code status: Full Patient will need hospitalization for at least 2 midnight for hypoxic respiratory failure/pneumonia and severe sepsis treatment with IV fluids, supplemental oxygen and IV antibiotics. Quality Stroke Does the patient have a stroke diagnosis?: No VTE Prior VTE?: No VTE Risk Level:: Medical - moderate - high VTE Device Contraindication: N/A - Device Ordered VTE Drug Contraindication: Treatment Not Indicated
[2024-02-02] MEDS: 0.9 % Sodium Chloride 1,000 ML 100 ML IVCONT ×2 (06:36→16:26)
[2024-02-02 07:31] LABS: Reflex Lactate? 2 Y
[2024-02-02] MEDS: Albuterol/Iprat 2.5/0.5MG 3 ML AMPUL.NEB INHALE ×4 (07:36→19:59)
--- NOTE | 2024-02-02 08:19 | PHA.MEDREC ---
Pharmacy Consult ? Medication Reconciliation Pharmacy has completed the medication reconciliation. Spoke to patient's Halle over the phone and confirmed patient's medication list. She said lisinopril was discontinued due to patient having low blood pressure.
--- NOTE | 2024-02-02 09:20 | PC.NURSE ---
Rectal temp 96.0 - MD Steward made aware via tigertext at 0906am. Solo temple applied.
--- NOTE | 2024-02-02 09:32 | PC.NURSE ---
Breo inhaler requested from pharmacy.
[2024-02-02 09:45] LABS: ~Lactic Acid-LAB USE ONLY 2.5 mmol/L (0.5-2.0)
--- NOTE | 2024-02-02 11:00 | MHC.CM.PN ---
IMM 02/02/24, Pt lives with his , he does not have any home health services, but said that he will have to have some help when he goes home after hospital stay. He has not used [facility] or been to [facility]. no HCP, CM will provide form for pt to complete and will add it to chart. PCP is Dr. Mills. can provide transport home upon DC. CM to follow and assist with DC plan.
[2024-02-02] MEDS: Clopidogrel Bisulfate 75 MG TABLET PO (11:14)
--- NOTE | 2024-02-02 11:23 | PC.NURSE ---
Pt tolerated PO medication with water without any difficulty.
--- NOTE | 2024-02-02 12:20 | PC.NURSE ---
RECTAL TEMP 96.9, PT HAD REMOVD ADRIAN HUGGER, PT INFORMED OF IMPORTANCE, BEAR HUGGER BACK IN PLACE. MD TRIVEDI AWARE OF ONGOING ELEV LACTATE, NO NEW ORDERS AT THIS TIME. WCTM.
--- NOTE | 2024-02-02 12:34 | PC.NURSE ---
Assumed care of this patient at 1100, patient resting comfortably on stretcher at this time, lactic continues to be elevated admitting provider made aware, temp continues to trend on the lower side, truong hugger continues to run.
--- NOTE | 2024-02-02 15:47 | PM.EVENT ---
Event Note Date of Service: 02/02/24 Event Note: Seen and evaluated denies any fever or chills but was hypothermic in morning tolerating PO Continue IV antibiotics along with nebulizers Wean O2 down as tolerated Time Spent With Patient Time: Total time managing care of this patient today ____ minutes.
[2024-02-02] MEDS: 0.9 % Sodium Chloride Flush 3 ML SYRINGE IVFLUSH (16:26)
[2024-02-02] MEDS: Atorvastatin Calcium 40 MG TABLET PO (20:57)
[2024-02-03] VITALS (13 sets, daily range): BP systolic 101–138; BP diastolic 53–77; PULSE 68–107; RESP 16–20; TEMP 35.6–36.4; O2SAT 91–98; BMI 16.4
[2024-02-03] MEDS: Piperacillin Sodium/Tazobactam 3.375 GM in 0.9 % Sodium Chloride 50 ML IV ×4 (00:06→16:32)
[2024-02-03] MEDS: 0.9 % Sodium Chloride 1,000 ML 100 ML IVCONT (02:13)
[2024-02-03 06:15] LABS: Mean Corpuscular HGB Conc 30.9 g/dl (31.0-36.0); Mean Corpuscular Hemoglobin 23.1 pg (27.0-33.0); Mean Corpuscular Volume 74.9 fL (80.0-98.0); Mean Platelet Volume 9.9 fL (9.4-12.4); Platelet Count 411 X10*3/uL (160-400); Red Blood Count 2.55 X10*6/uL (4.60-5.80); Red Cell Distribution Width 16.1 % (11.0-16.0); White Blood Count 15.7 X10*3/uL (4.8-10.8)
[2024-02-03 06:30] LABS: Anion Gap 9 (12-20); Blood Urea Nitrogen 15 mg/dL (9-16); Calcium 8.3 mg/dL (8.4-10.2); Carbon Dioxide 24 mmol/L (22-29); Chloride 111 mmol/L (96-108); Creatinine Clr Calc Pharmacy 61.1; Estimated Glomerular Filt Rate > 60; Glucose Random 166 mg/dL (60-115); Potassium 3.2 mmol/L (3.3-5.1); Sodium 141 mmol/L (135-145)
[2024-02-03 07:16] LABS: Hematocrit 19.1 % (42.0-52.0); Hemoglobin 5.9 g/dl (14.0-18.0)
[2024-02-03] MEDS: Albuterol/Iprat 2.5/0.5MG 3 ML AMPUL.NEB INHALE ×4 (07:20→20:01)
[2024-02-03] MEDS: Fluticasone/Vilanterol 200/25 BLST.W.DEV 1 PUFF INHALE (07:43)
[2024-02-03 07:46] LABS: Iron 51 mcg/dL (45-160); Percent Iron Saturation 49 % (15-50); Total Iron Binding Capacity 105 mcg/dL (228-428); Unsaturated Iron Binding 54 ug/dL
[2024-02-03] MEDS: Pantoprazole Sodium 40 MG/10 ML VIAL IVPUSH ×2 (08:00→16:33)
[2024-02-03] MEDS: Potassium Chloride Packet 20 MEQ PACKET 40 MEQ PO (08:00)
[2024-02-03] MEDS: 0.9 % Sodium Chloride Flush 3 ML SYRINGE IVFLUSH ×3 (08:00→20:07)
[2024-02-03] MEDS: methylPREDNISolone Sod Succ 40 MG/ML VIAL IVPUSH ×2 (11:40→20:07)
--- NOTE | 2024-02-03 12:50 | HO.PM.IMPN ---
Subjective Subjective Date of Service: 02/03/24 Interval History: Seen and evaluated this morning Feels little better today but get distressed with minimal exertion still on O2 supplement Hb dropped below 7 Review of Systems Review of Systems: Yes all other systems are reviewed and are negative Physical Exam Vital Signs: Vital Signs: Last Vital Signs Temp 97.2 F 02/03/24 12:48 Pulse 90 02/03/24 12:48 Resp 20 02/03/24 12:48 BP 138/77 02/03/24 12:48 Pulse Ox 98 02/03/24 11:26 O2 Del Method Room Air 02/03/24 11:26 O2 Flow Rate 2 02/03/24 10:56 Oxygen Flow Rate 15 02/02/24 02:34 BMI result Body Mass Index 16.4 Const: Other: Constitutional : Awake, interactive, in respiratory distress with minimal exertion Neck : Normal inspection, Supple Cardiovascular : RRR, no JVP, no lower extremity edema Respiratory : decreased bilateral air entry, basal fine crackles, no wheezes Gastrointestinal: soft, lax, Normal bowel sounds, Non tender Skin : Warm, Dry Neurological : Alert & oriented x3, No focal deficit Objective Data Active Medications Acetaminophen (Acetaminophen 325 Mg Tablet) 650 mg PO Q6H PRN PRN Reason: Pain, Mild (Pain Scale 1-3) Albuterol/Ipratropium (Albuterol/Iprat 2.5/0.5mg 3 Ml Ampul.Neb) 3 ml INHALE RQ4H WHILE AWAKE [facility] Last Admin: 02/03/24 11:17 Dose: 3 ml Documented By: DERIC Atorvastatin Calcium (Atorvastatin Calcium 40 Mg Tablet) 40 mg PO BEDTIME [facility] Last Admin: 02/02/24 20:57 Dose: 40 mg Documented By: YOUNG Clopidogrel Bisulfate (Clopidogrel Bisulfate 75 Mg Tablet) 75 mg PO DAILY [facility] Last Admin: 02/02/24 11:14 Dose: 75 mg Documented By: SHERRY Fluticasone/Vilanterol (Fluticasone/Vilanterol 200/25 Blst.W.Dev) 1 puff INHALE RDAILY [facility] Last Admin: 02/03/24 07:43 Dose: 1 puff Documented By: DERIC Hydroxyzine HCl (Hydroxyzine Hcl 25 Mg Tablet) 25 mg PO TID PRN PRN Reason: itching Piperacillin Sod/Tazobactam (Sod 3.375 gm/ Sodium Chloride) 50 mls @ 100 mls/hr IV Q6H [facility] Last Admin: 02/03/24 11:39 Dose: 100 mls/hr Documented By: MEHUL Methylprednisolone Sodium Succinate (Methylprednisolone Sod Succ 40 Mg/Ml Vial) 40 mg IVPUSH Q8H [facility] Last Admin: 02/03/24 11:40 Dose: 40 mg Documented By: MEHUL Non-Formulary Medication (Pantoprazole) 40 mg PO DAILY@0630 [facility] Pantoprazole Sodium (Pantoprazole Sodium 40 Mg/10 Ml Vial) 40 mg IVPUSH BID@0630,1630 [facility] Last Admin: 02/03/24 08:00 Dose: 40 mg Documented By: MEHUL Sodium Chloride (0.9 % Sodium Chloride Flush 3 Ml Syringe) 3 ml IVFLUSH QSHIFT [facility] Last Admin: 02/03/24 08:00 Dose: 3 ml Documented By: MEHUL Labs 02/03/24 05:45 02/03/24 05:45 Labs: Laboratory Results - last 24 hr 02/03/24 02/03/24 05:45 07:41 MCV 74.9 L MCH 23.1 L MCHC 30.9 L RDW 16.1 H Plt Count 411 H D MPV 9.9 Absolute Nucleated RBC 0.000 Nucleated RBC % (auto) 0.0 Smear Path Review Anion Gap 9 L Estim Creat Clear Calc 61.1 Estimated GFR > 60 Random Glucose 166 H Calcium 8.3 L D Iron 51 TIBC 105 L % Saturation 49 Unsat Iron Binding 54 Blood Type O Negative Antibody Screen NEGATIVE Crossmatch See Detail Microbiology Microbiology Results: Microbiology 02/02/24 02:51 Blood Culture - Preliminary Blood - Venous No growth after 24 hours. 02/02/24 02:51 Blood Culture - Preliminary Blood - Venous No growth after 24 hours. Assessment and Plan (1) Hypoxic respiratory failure: Status: Acute (2) Severe sepsis: Status: Acute (3) Acute hypoxemic respiratory failure: Status: Acute (4) Pneumonia: Status: Acute Plan Joshua Zimmerman is a 78 years old man admitted with: # Hypoxic respiratory failure secondary to pneumonia associated with acute exacerbation of COPD Continue bronchodilator therapy IV steroids IV antibiotic therapy with Zosyn. Wean O2 down as tolerated # Sepsis secondary to pneumonia. DC IV fluids IV antibiotic Blood cultures pending # Anemia, chronic. Continue to monitor H&H. # Lactic acidosis Secondary to nebulizers not sepsis, dc # Essential hypertension. Lisinopril on hold due to low BP. # History of TIA. Continue Plavix and statin. DVT prophylaxis: On Plavix Code status: Full Patient will need hospitalization overnight for hypoxic respiratory failure/pneumonia and severe sepsis treatment with IV fluids, supplemental oxygen and IV antibiotics. Quality Stroke Does the patient have a stroke diagnosis?: No VTE Prior VTE?: No VTE Risk Level:: Medical - moderate - high VTE Device Contraindication: N/A - Device Ordered VTE Drug Contraindication: Treatment Not Indicated
--- NOTE | 2024-02-03 13:15 | MHC.CLN ---
PT IS MODERATELY MALNOURISHED PT WITH MILDLY DEPLETED SUBCUTANEOUS FAT AND MUSCLE MASS WITH BMI 16 AND 8% NONSIGNIFICANT WT LOSS X 6 MONTHS SPOKE WITH FAMILY MEMBER WHO CONFIRMED WT LOSS AND POOR PO AT BEDSIDE DIET RX: REGULAR-APPROPRIATE PT LIKES ICE CREAM AND RECEPTIVE TO DRINKING ENSURE BID (LASHAWN FLAVOR) SUPP TO PROVIDE 700KCALS, 40G PROTEIN MONITOR PO INTAKE AND ENCOURAGE SUPPLEMENT SEE ALSO FULL CINICAL NUTRITION ASSESSMENT
[2024-02-03 14:45] LABS: Hemoglobin 8.6 g/dl (14.0-18.0); Mean Corpuscular HGB Conc 31.9 g/dl (31.0-36.0); Mean Corpuscular Hemoglobin 24.8 pg (27.0-33.0); Mean Corpuscular Volume 77.8 fL (80.0-98.0); Mean Platelet Volume 9.9 fL (9.4-12.4); Platelet Count 439 X10*3/uL (160-400); Red Blood Count 3.47 X10*6/uL (4.60-5.80); Red Cell Distribution Width 17.2 % (11.0-16.0); White Blood Count 22.6 X10*3/uL (4.8-10.8)
[2024-02-03 18:43] LABS: OBS Int Ctl Valid YES; OBS1 NEGATIVE (NEGATIVE)
[2024-02-03] MEDS: Atorvastatin Calcium 40 MG TABLET PO (20:07)
[2024-02-03] MEDS: Magnesium Sulfate/H2O 2 GM/50 ML PIGGYBACK IV (20:11)
[2024-02-03 20:34] LABS: Anion Gap 14 (12-20); Blood Urea Nitrogen 14 mg/dL (9-16); Carbon Dioxide 20 mmol/L (22-29); Chloride 111 mmol/L (96-108); Creatinine Clr Calc Pharmacy 63.9; Estimated Glomerular Filt Rate > 60; Glucose Random 188 mg/dL (60-115); Magnesium 1.4 mg/dL (1.6-2.6); Potassium 3.8 mmol/L (3.3-5.1); Sodium 141 mmol/L (135-145)
[2024-02-04] VITALS (46 sets, daily range): BP systolic 75–119; BP diastolic 37–77; PULSE 95–144; RESP 12–28; TEMP 34.5–36.9; O2SAT 89–100; BMI 16.4
[2024-02-04] MEDS: Albuterol Sulfate (0.083%) 2.5 MG/3 ML VIAL.NEB INHALE (01:29)
[2024-02-04] MEDS: methylPREDNISolone Sod Succ 125 MG/2 ML VIAL IVPUSH (02:21)
[2024-02-04] MEDS: Morphine Sulfate 2 MG/ML CARTRIDGE IVPUSH (02:21)
[2024-02-04] MEDS: Furosemide 20 MG/2 ML VIAL IVPUSH ×3 (02:22→03:13)
[2024-02-04] MEDS: Piperacillin Sodium/Tazobactam 3.375 GM in 0.9 % Sodium Chloride 50 ML IV ×5 (02:24→23:24)
[2024-02-04 02:25] LABS: VBG HCO3 11 mmol/L (22-26); VBG pCO2 27 mmHg; VBG pH 7.21 (7.32-7.43); VBG pO2 73 mmHg
[2024-02-04 02:26] LABS: Basophils Absolute Auto 0.1 X10*3/uL (0.0-0.2); Basophils Percent Auto 0.2 % (0-2); Eosinophils Percent Auto 0.1 % (0-4); Hemoglobin 8.9 g/dl (14.0-18.0); Imm Gran Abs Auto 0.64 X10*3/uL (0.00-0.03); Imm Gran Pct Auto 2.1 % (0.0-0.4); Lymphocytes Absolute Auto 0.7 X10*3/uL (1.2-4.9); Lymphocytes Percent Auto 2.2 % (20-40); MANUAL DIFF FLAG SCAN; Mean Corpuscular HGB Conc 30.7 g/dl (31.0-36.0); Mean Corpuscular Hemoglobin 24.7 pg (27.0-33.0); Mean Corpuscular Volume 80.6 fL (80.0-98.0); Mean Platelet Volume 9.5 fL (9.4-12.4); Monocytes Absolute Auto 0.9 X10*3/uL (0.1-1.2); Monocytes Percent Auto 3.1 % (2-11); NRBC Pct Auto 0.1 /100WBC (0.0-0.2); Neutrophils Absolute Auto 27.5 x10*3/uL (2.0-8.3); Neutrophils Percent Auto 92.3 % (45-73); Platelet Count 451 X10*3/uL (160-400); Red Cell Distribution Width 16.5 % (11.0-16.0); SCAN SMEAR FLAG 1; White Blood Count 29.8 X10*3/uL (4.8-10.8)
[2024-02-04 02:29] LABS: SLIDE REVIEW VERIFIED
[2024-02-04 02:39] LABS: Anion Gap 18 (12-20); Blood Urea Nitrogen 15 mg/dL (9-16); Calcium 9.1 mg/dL (8.4-10.2); Carbon Dioxide 13 mmol/L (22-29); Chloride 114 mmol/L (96-108); Creatinine Clr Calc Pharmacy 49.4; Estimated Glomerular Filt Rate > 60; Glucose Random 310 mg/dL (60-115); Potassium 5.2 mmol/L (3.3-5.1); Sodium 140 mmol/L (135-145)
[2024-02-04 02:58] LABS: B Type Natriuretic Peptide 11 pg/mL (<100)
[2024-02-04 03:03] LABS: Alanine Aminotransferase 8 U/L (0-40); Albumin Level 2.7 g/dL (3.5-5.0); Alkaline Phosphatase 80 U/L (39-117); Aspartate Amino Transferase 16 U/L (5-37); Bilirubin Direct 0.3 mg/dL (0.0-0.5); Bilirubin Total 0.5 mg/dL (0.0-1.0); Phosphorus 3.9 mg/dL (2.7-4.5); Total Protein 5.8 g/dL (6.5-8.0)
[2024-02-04 03:09] LABS: Glucose, Whole Blood 253 mg/dL (60-115)
[2024-02-04] MEDS: Sodium Bicarbonate 8.4% 50 MEQ/50 ML SYRINGE IVPUSH ×3 (03:12→03:34)
[2024-02-04 03:23] LABS: Lactic Acid 8.1 mmol/L (0.5-2.0); Troponin-I High Sensitivity 465.6 ng/L (<3.5-35.0)
[2024-02-04] MEDS: Norepinephrine Bitartrate/D5W 8 MG/250 ML PLAST..BAG 8.91 MG IV (03:25)
[2024-02-04] MEDS: Calcium Chloride 1 GM/10 ML SYRINGE IVPUSH (03:26)
[2024-02-04] MEDS: Etomidate 20 MG/10 ML VIAL IVPUSH (03:28)
[2024-02-04] MEDS: propofoL 1,000 MG/100 ML VIAL 2.85 MG IVCONT (03:31)
[2024-02-04] MEDS: EPINEPHrine 1 MG/10 ML SYRINGE IVPUSH ×2 (03:34)
--- NOTE | 2024-02-04 03:56 | ECG_ITS ---
Test Reason : Tachy Blood Pressure : / mmHG Vent. Rate : 122 BPM Atrial Rate : 122 BPM P-R Int : 158 ms QRS Dur : 070 ms QT Int : 284 ms P-R-T Axes : 081 140 069 degrees QTc Int : 404 ms Sinus tachycardia with Premature atrial complexes Low voltage QRS Possible Inferior infarct , age undetermined Cannot rule out Anteroseptal infarct , age undetermined Abnormal ECG When compared with ECG of 02-FEB-2024 02:55, Inferior infarct changes present Anteroseptal infarct present. Referred By: Earnest Carranza Electronically Signed By:Magen Hooks
--- NOTE | 2024-02-04 04:01 | PC.NURSE ---
Pt alert and oriented x 4, @ 0100 pt woke up with change in condition; increase work of breathing, O2 SAT 96%RA, crackles throughout, unable to tolerate PRN neb tx. called to bedside, new orders received to admin Lasix 2omg , solumedrol 125 mg, CXR and labs. ICU INDUCTOR TESTER called to bedside Sodium Bicarb admin @ 0255, 1 amp Epinephrine admin @ 0305, Levofed started @0308 another dose of Epinephrine admin @0310. Pt transfer to the ICU for further treatment.
--- NOTE | 2024-02-04 04:09 | W.PM.CCCN ---
History of Present Illness Data of Consult Service Date: 02/04/24 Requesting physician: Andrews Larson Primary Care Provider: Lis Clancy MD [facility] Reason for consult: WOB The patient is a 78-year-old male with a past medical history of COPD, syndrome of inappropriate secretion of antidiuretic hormone, hypertension, and GERD, who presented to the emergency department on 02/02/2024 with complaints of shortness of breath. ?Admitted to Hospital Medicine with pneumonia and COPD exacerbation treated with Zosyn and Solu-Medrol. ?Patient also with acute drop in hemoglobin from 8.4 to 8.9, received 1 unit of RBC. Tonight, patient with increased work of breathing, VBgs obtained and showed 7.21///11. ?Lactic acid 8.1, troponin elevated to 465. During my assessment of patient, patient became severely hypotensive systolic of 60s, require multiple pushes of bicarb and epinephrine on the floor. ?Required emergent transferred to ICU and intubation. 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) Insomnia Osteoporosis GERD without esophagitis Benign essential hypertension Smoker Smoker COPD (chronic obstructive pulmonary disease) Social History Social History Household Members: Spouse and Family Household Members Other:: and grandson Housing: House Do you presently have visiting nurse or other home services: No Alcohol intake: current Alcohol intake frequency: 0-2 drinks per day Alcohol type: beer Patient Tobacco Use Status: Former Tobacco user e-Cigarette/Vaping Use: Never Used Second Hand Smoke Exposure: No service: No Current occupational status: retired Cognitive needs: No Hearing needs: No Vision needs: No Meds Allergies Allergy/AdvReac Type Severity Reaction Status Date / Time aspirin [ASPIRIN] Allergy Intermediate SWELLING, Verified 02/02/24 04:07 hives Active Medications: Current Medications Acetaminophen (Acetaminophen 325 Mg Tablet) 650 mg PO Q6H PRN PRN Reason: Pain, Mild (Pain Scale 1-3) Albuterol Sulfate (Albuterol Sulfate (0.083%) 2.5 Mg/3 Ml Vial.Neb) 2.5 mg INHALE Q2H PRN PRN Reason: Shortness of Breath/Wheezing Last Admin: 02/04/24 01:29 Dose: 2.5 mg Albuterol/Ipratropium (Albuterol/Iprat 2.5/0.5mg 3 Ml Ampul.Neb) 3 ml INHALE RQ4H WHILE AWAKE [facility] Last Admin: 02/03/24 20:01 Dose: 3 ml Atorvastatin Calcium (Atorvastatin Calcium 40 Mg Tablet) 40 mg PO BEDTIME [facility] Last Admin: 02/03/24 20:07 Dose: 40 mg Calcium Chloride (Calcium Chloride 1 Gm/10 Ml Syringe) 1 gm IVPUSH STAT STA Stop: 02/04/24 04:04 Clopidogrel Bisulfate (Clopidogrel Bisulfate 75 Mg Tablet) 75 mg PO DAILY [facility] Last Admin: 02/02/24 11:14 Dose: 75 mg Etomidate (Etomidate 20 Mg/10 Ml Vial) 20 mg IVPUSH ONCE ONE Stop: 02/04/24 04:07 Fluticasone/Vilanterol (Fluticasone/Vilanterol 200/25 Blst.W.Dev) 1 puff INHALE RDAILY [facility] Last Admin: 02/03/24 07:43 Dose: 1 puff Hydroxyzine HCl (Hydroxyzine Hcl 25 Mg Tablet) 25 mg PO TID PRN PRN Reason: itching Piperacillin Sod/Tazobactam (Sod 3.375 gm/ Sodium Chloride) 50 mls @ 100 mls/hr IV Q6H [facility] Last Infusion: 02/04/24 03:24 Dose: Infused Norepinephrine Bitartrate (Levophed) 8 mg in 250 mls @ 0 mls/hr IV .Q0M [facility]; Protocol Phenylephrine HCl 20 mg/ (Sodium Chloride) 252 mls @ 0 mls/hr IVCONT .Q0M [facility]; Protocol Propofol (Diprivan) 1,000 mg in 100 mls @ 0 mls/hr IVCONT .Q0M [facility]; Protocol Albumin Human (Kedbumin 25 %) 100 mls @ 133.333 mls/hr IV Q1H [facility] Stop: 02/04/24 05:59 Methylprednisolone Sodium Succinate (Methylprednisolone Sod Succ 40 Mg/Ml Vial) 40 mg IVPUSH Q8H [facility] Last Admin: 02/03/24 20:07 Dose: 40 mg Pantoprazole Sodium (Pantoprazole Sodium 40 Mg/10 Ml Vial) 40 mg IVPUSH BID@0630,1630 [facility] Last Admin: 02/03/24 16:33 Dose: 40 mg Sodium Bicarbonate (Sodium Bicarbonate 8.4% 50 Meq/50 Ml Syringe) 50 meq IVPUSH ONCE ONE Stop: 02/04/24 04:04 Sodium Chloride (0.9 % Sodium Chloride Flush 3 Ml Syringe) 3 ml IVFLUSH QSHIFT [facility] Last Admin: 02/03/24 20:07 Dose: 3 ml Home Medications Medication Instructions Recorded Confirmed Last Taken Type cholecalciferol (vitamin D3) 25 25 mcg PO DAILY 02/22/23 02/02/24 02/01/24 History mcg (1,000 unit) capsule albuterol sulfate 90 mcg/actuation 2 puff PO QID PRN Wheezing 02/02/24 02/02/24 Unknown History aerosol inhaler (Ventolin HFA) pantoprazole 40 mg tablet,delayed 40 mg PO DAILY 02/02/24 02/02/24 02/01/24 History release Physical Exam Vital Signs: Vital Signs: Last Vital Signs Temp 96.5 F L 02/04/24 00:00 Pulse 118 H 02/04/24 01:30 Resp 28 H 02/04/24 01:50 BP 91/63 02/04/24 00:00 Pulse Ox 97 02/04/24 00:00 O2 Del Method Nasal Cannula 02/04/24 00:00 O2 Flow Rate 2 02/04/24 00:00 Oxygen Flow Rate 15 02/02/24 02:34 BMI result Body Mass Index 16.4 Focused assesment performed at 0645 Constitutional: Alert, frail looking, in resp distress Mental Status: Oriented to person only, not to place, time, or situation. Eyes: Pupils are equal, round, and reactive to light. Ear, Nose, and Throat: Oropharynx clear, mucous membranes moist. Ears and nose without deformities. Trachea midline. Respiratory: Diffuse coarse expiratory breath sounds bilaterally. Cardiovascular: S1, S2 regular. No murmurs, rubs, or gallops. Gastrointestinal: Abdomen soft, non-tender, non-distended. Normal bowel sounds. Neurologic: No focal neurological deficits. Moves all extremities spontaneously. Skin: Warm, dry. Musculoskeletal: No cyanosis or clubbing. Extremities: No edema. Psychiatric: Normal mood and affect. Results Labs 02/04/24 05:15 02/04/24 05:19 Labs: Short CBC 02/03/24 02/03/24 02/04/24 Range/Units 05:45 14:30 02:17 WBC 15.7 H 22.6 H 29.8 H (4.8-10.8) X10*3/uL Hgb 5.9 L* D 8.6 L D 8.9 L (14.0-18.0) g/dl Hct 19.1 L* D 27.0 L D 29.0 L (42.0-52.0) % Plt Count 411 H D 439 H 451 H (160-400) X10*3/uL BMP 02/03/24 02/03/24 02/04/24 05:45 19:53 02:17 Sodium 141 141 140 Potassium 3.2 L 3.8 5.2 H D Chloride 111 H 111 H 114 H Carbon Dioxide 24 20 L 13 L BUN 15 14 15 Creatinine 0.68 0.65 0.84 Calcium 8.3 L D 9.0 D 9.1 Liver Function 02/04/24 Range/Units 02:17 Total Bilirubin 0.5 (0.0-1.0) mg/dL Direct Bilirubin 0.3 (0.0-0.5) mg/dL AST 16 (5-37) U/L ALT 8 (0-40) U/L Alkaline Phosphatase 80 (39-117) U/L Albumin 2.7 L (3.5-5.0) g/dL Microbiology Microbiology Results: Microbiology 02/02/24 02:51 Blood - Venous Blood Culture - Preliminary No growth after 24 hours. 02/02/24 02:51 Blood - Venous Blood Culture - Preliminary No growth after 24 hours. Assessment and Plan (1) Septic shock: Status: Acute (2) Metabolic acidosis: Status: Acute (3) Elevated troponin: Status: Acute (4) Acute hypoxemic respiratory failure: Status: Acute (5) Pneumonia: Qualifiers: Laterality: right Lung location: lower lobe of lung Pneumonia type: due to unspecified organism Qualified Code(s): J18.9 - Pneumonia, unspecified organism Status: Acute Plan Neuro:? Altered mental status- from septic shock Cardiac:?? Septic shock, ? Patient?s lactic 8.1 and hypotensive requiring pressors.? Patient has a known pneumonia but Blood gas showing severe metabolic acidosis, source likely from abdomen. ?Pneumonia was being treated with Zosyn. ?Will broaden coverage with vancomycin.?Will give 1.5 L bolus and Albumin. Will obtain chest CT and abdominal CTA. ? Wean off pressors when appropriate. Elevated troponin: ?EKG with no ST elevation, elevated troponin could be due to demand ischemia. ?We will repeat troponin level. Pulmonary:? Require emergent intubation? for airway protection-? due to poor mentation patient require emergent intubation COPD exacerbation- patient was admitted for COPD exacerbation, continue treatment Renal:?? No acute issues Endo:? No acute issues.?? GI:? Metabolic acidosis- patient metabolic acidosis,? received multiple doses of bicarb pushes. ?Making some urine. ?We will obtain CTA of the abdomen.? ID:?? septic shock from possible abdomen source. ?Underlying pneumonia. ? Blood cultures ordered.? Patient received Zosyn in the ED. Will continue Zosyn, will add empiric vancomycin. Heme/Onc:?? Acute anemia-? stable now. ? No signs of active bleeding.? Psych:? No acute issues. Miscellaneous:? Prophylaxis:? Pneumonic boots/ IV Protonix ?Critical care time:? X 120 minutes of critical care time ?Code? status:? FULL code: Attempted to call patient's to confirm code status, voicemail was left. ?Case discussed with attending Dr Hobbs
[2024-02-04 04:22] LABS: Reflex Lactate? Lactic Acid Added
--- NOTE | 2024-02-04 04:50 | W.PM.CCHP ---
Procedures Date of Service Date of Service: 02/04/24 <Earnest Carranza NP - Last Filed: 02/04/24 04:52> 02/04/24 <Matteo Hobbs MD - Last Filed: 02/04/24 10:18> Intubation Intubation Comments: Patient with acute respiratory distress, requiring emergent intubation for airway protection.. Patient intubated with 7.5 cuffed ET tube under glide scope guidance with visualization of vocal cords, without immediate complications. ET tube position verified with Chest XRAY. <Earnest Carranza NP - Last Filed: 02/04/24 04:52> Consent for Procedure: Emergent-no informed consent obtained <Earnest Carranza NP - Last Filed: 02/04/24 04:52> Time out performed: Yes <Earnest Carranza NP - Last Filed: 02/04/24 04:52> Sedative: etomidate <Earnest Carranza NP - Last Filed: 02/04/24 04:52> Mg given: 20 <Earnest Carranza NP - Last Filed: 02/04/24 04:52> Laryngoscope: fiber optic video scope <Earnest Carranza NP - Last Filed: 02/04/24 04:52> ET tube size: 7.5 <Earnest Carranza NP - Last Filed: 02/04/24 04:52> ET tube uncuffed: No <Earnest Carranza NP - Last Filed: 02/04/24 04:52> Tube secured depth (cm): 25 <Earnest Carranza NP - Last Filed: 02/04/24 04:52> Tube secured location: lips <Earnest Carranza NP - Last Filed: 02/04/24 04:52> Tube placement confirmation: visualized tube passing through cords, equal breath sounds bilaterally, no breath sounds over epigastrium and confirmation by capnometry <Earnest Carranza NP - Last Filed: 02/04/24 04:52> Patient tolerated procedure: well and no complications <Earnest Carranza NP - Last Filed: 02/04/24 04:52> Intubation complications: none <Earnest Carranza NP - Last Filed: 02/04/24 04:52>
--- NOTE | 2024-02-04 04:52 | W.PM.CCHP ---
Procedures Date of Service Date of Service: 02/04/24 <Earnest Carranza NP - Last Filed: 02/04/24 04:54> 02/04/24 <Matteo oHbbs MD - Last Filed: 02/04/24 10:19> Central Line Placement Right IJ: Central Line Comments: Emergent Right internal jugular triple lumen central venous catheter placed in usual sterile conditions under ultrasound guidance for appropriate vascular access without immediate complications. Central line position verified with Chest XRAY. <Earnest Carranza NP - Last Filed: 02/04/24 04:54> Consent for Procedure: Emergent-no informed consent obtained <Earnest Carranza NP - Last Filed: 02/04/24 04:54> Time out performed: Yes <Earnest Carranza NP - Last Filed: 02/04/24 04:54> Sterile Technique Used: Yes <Earnest Carranza NP - Last Filed: 02/04/24 04:54> Patient placed on monitor/pulse ox: Yes <Earnest Carranza NP - Last Filed: 02/04/24 04:54> MD prep: mask, gown and gloves <Earnest Carranza NP - Last Filed: 02/04/24 04:54> Central line prep: Chlorhexidine scrub <Earnest Carranza NP - Last Filed: 02/04/24 04:54> Local anesthesia used: other anesthetic (ON propofol for vent sedation) <Earnest Carranza NP - Last Filed: 02/04/24 04:54> Ultrasound used for placement: Yes <Earnest Carranza NP - Last Filed: 02/04/24 04:54> Central line lumen inserted: triple <Earnest Carranza NP - Last Filed: 02/04/24 04:54> Post procedure: sutured in place, good blood return, all ports aspirated, flushed, capped and sterile dressing applied <Earnest Carranza NP - Last Filed: 02/04/24 04:54> Post procedure x-ray: tip of catheter in good position and no pneumothorax seen <Earnest Carranza NP - Last Filed: 02/04/24 04:54> Patient tolerated procedure: well and no complications <Earnest Carranza NP - Last Filed: 02/04/24 04:54> Complications: none <Earnest Carranza NP - Last Filed: 02/04/24 04:54>
[2024-02-04] MEDS: Lactated Ringers 1,000 ML 999 ML IV (05:00)
[2024-02-04] MEDS: Albumin Human 25 % 100 ML 133.33 ML IV ×2 (05:00→06:28)
[2024-02-04] MEDS: iohexoL 350 MG/ML 100 ML INFUS..BTL 85 ML IV (05:13)
[2024-02-04 05:30] LABS: VBG HCO3 17 mmol/L (22-26); VBG pCO2 38 mmHg; VBG pH 7.25 (7.32-7.43); VBG pO2 74 mmHg
[2024-02-04 06:18] LABS: Hematocrit 24.9 % (42.0-52.0); Hemoglobin 7.8 g/dl (14.0-18.0); Mean Corpuscular HGB Conc 31.3 g/dl (31.0-36.0); Mean Corpuscular Hemoglobin 24.6 pg (27.0-33.0); Mean Corpuscular Volume 78.5 fL (80.0-98.0); Mean Platelet Volume 10.8 fL (9.4-12.4); NRBC Pct Auto 0.3 /100WBC (0.0-0.2); Platelet Count 422 X10*3/uL (160-400); Red Blood Count 3.17 X10*6/uL (4.60-5.80); Red Cell Distribution Width 16.8 % (11.0-16.0)
[2024-02-04] MEDS: vancomycin HCL 1,250 MG in 0.9 % Sodium Chloride 250 ML 166.67 MG IV (06:24)
[2024-02-04] MEDS: Lactated Ringers 500 ML 999 ML IV (06:26)
[2024-02-04 06:38] LABS: Anion Gap 19 (12-20); Blood Urea Nitrogen 18 mg/dL (9-16); Calcium 9.6 mg/dL (8.4-10.2); Carbon Dioxide 18 mmol/L (22-29); Chloride 110 mmol/L (96-108); Creatinine Clr Calc Pharmacy 49.4; Estimated Glomerular Filt Rate > 60; Glucose Random 283 mg/dL (60-115); Potassium 4.4 mmol/L (3.3-5.1); Sodium 143 mmol/L (135-145)
[2024-02-04 06:43] LABS: ~Lactic Acid-LAB USE ONLY 10.1 mmol/L (0.5-2.0)
[2024-02-04 06:51] LABS: Troponin-I High Sensitivity 706.3 ng/L (<3.5-35.0)
[2024-02-04 06:57] LABS: Alanine Aminotransferase 16 U/L (0-40); Albumin Level 2.3 g/dL (3.5-5.0); Alkaline Phosphatase 77 U/L (39-117); Aspartate Amino Transferase 42 U/L (5-37); Bilirubin Direct 0.4 mg/dL (0.0-0.5); Bilirubin Total 0.7 mg/dL (0.0-1.0); Magnesium 2.2 mg/dL (1.6-2.6); Phosphorus 5.4 mg/dL (2.7-4.5); Total Protein 4.8 g/dL (6.5-8.0)
--- NOTE | 2024-02-04 07:15 | PC.NURSE ---
At approx 0240- this RN and DRAPERY INSPECTOR Dillon to bedside in rm [id number] prior to transfer to ICU- levophed gtt started and titrated per DRAPERY INSPECTOR d/t SBP 60s, additonally given 2 amps of bicarb and epi IVP. Pt transferred to ICU at approx 0330 from Med/Tele. Upon initial assessment- pt lethargic and obtunded, intubated upon arrival to ICU by DRAPERY INSPECTOR. Given etomidate 20 mg IVP for intubation- propofol gtt started for sedation. TL CVC placed to R IJ by DRAPERY INSPECTOR. Lines/tube placement confirmed by pCXR. Brought down to CT scan at 0420, completed without incident. Solo hugger placed on pt for core temp of 94.5. ST on tele, HR 120-130s. Levophed titrated per JAN. ETT #7.5, 26 cm at lip. On AC settings. OGT placed and clamped. Coude catheter already in place, UOP as charted. Skin overall intact- foam dsg applied to sacrum for protection. Attempts made to call family by provider.
[2024-02-04] MEDS: 0.9 % Sodium Chloride Flush 3 ML SYRINGE IVFLUSH ×2 (07:21→23:28)
[2024-02-04] MEDS: Pantoprazole Sodium 40 MG/10 ML VIAL IVPUSH ×2 (07:21→16:06)
[2024-02-04] MEDS: Albumin Human 25 % 100 ML IV ×3 (07:22→21:33)
[2024-02-04] MEDS: Albuterol/Iprat 2.5/0.5MG 3 ML AMPUL.NEB INHALE ×4 (08:08→20:12)
[2024-02-04 08:12] LABS: Reflex Lactate? 2 Y
[2024-02-04] MEDS: Chlorhexidine Gluc Oral Rinse 15 ML MOUTHWASH BUCCAL ×3 (08:56→21:33)
[2024-02-04] MEDS: Norepinephrine Bitartrate/D5W 8 MG/250 ML PLAST..BAG 40.08 MG IV ×3 (09:38→21:12)
--- NOTE | 2024-02-04 10:19 | PHA.PROG ---
Admission Date/Time: February 02, 2024 05:07 Indication: SEPSIS Weight in k.5 kg Serum Creatinine - Last 168 Hours 02/02/24 02/02/24 02/03/24 02:51 05:27 05:45 Creatinine 0.91 0.76 0.68 02/03/24 02/04/24 02/04/24 19:53 02:17 05:19 Creatinine 0.65 0.84 0.84 Estimated CrCl and GFR - Last 168 Hours 02/02/24 02/02/24 02/03/24 02:51 05:27 05:45 Estim Creat Clear Calc 39.6 47.4 61.1 Estimated GFR > 60 > 60 > 60 02/03/24 02/04/24 02/04/24 19:53 02:17 05:19 Estim Creat Clear Calc 63.9 49.4 49.4 Estimated GFR > 60 > 60 > 60 Vancomycin Loading Dose: 1250 DAILY Current Vancomycin Dosing Regimen: 1000 Vancomycin Monitoring using AUC goal of 400 - 600 range with trough as surrogate marker: 448 MG/L HR Date and Time for next Vancomycin Level to be drawn: 02/05 @ 0700 Pharmacist Comments on Vancomycin Plan: Vancomycin dosing will take advantage of [employer] as a clinical decision support tool that uses Bayesian modeling to calculate individual patient's pharmacokinetic parameters and forecast the patient's drug concentration time course with the target goal AUC 24 range of 400 - 600 mg/L/hr.
[2024-02-04] MEDS: propofoL 1,000 MG/100 ML VIAL 8.55 MG IVCONT ×2 (11:35→21:24)
[2024-02-04 13:26] LABS: Venous Blood Gas Refer to POC result
[2024-02-04 14:05] LABS: VBG HCO3 20 mmol/L (22-26); VBG pCO2 35 mmHg; VBG pH 7.34 (7.32-7.43); VBG pO2 51 mmHg
[2024-02-04 14:06] LABS: Venous Blood Gas Refer to POC result
[2024-02-04 14:13] LABS: Anion Gap 19 (12-20); Blood Urea Nitrogen 20 mg/dL (9-16); Calcium 9.6 mg/dL (8.4-10.2); Carbon Dioxide 21 mmol/L (22-29); Chloride 109 mmol/L (96-108); Creatinine Clr Calc Pharmacy 38.4; Estimated Glomerular Filt Rate > 60; Glucose Random 213 mg/dL (60-115); Potassium 4.3 mmol/L (3.3-5.1); Sodium 145 mmol/L (135-145)
[2024-02-04 17:26] LABS: Venous Blood Gas Refer to POC result
--- NOTE | 2024-02-04 21:40 | ECG_ITS ---
Test Reason : st elevation Blood Pressure : / mmHG Vent. Rate : 137 BPM Atrial Rate : 137 BPM P-R Int : 174 ms QRS Dur : 074 ms QT Int : 254 ms P-R-T Axes : 084 -79 084 degrees QTc Int : 383 ms Sinus tachycardia Left axis deviation Pulmonary disease pattern Septal infarct , age undetermined Inferior infarct , age undetermined Abnormal ECG No previous ECGs available Referred By: Earnest Carranza Electronically Signed By:COLLEEN YANES MD
[2024-02-04 22:10] LABS: Basophils Percent Auto 0.1 % (0-2); Hematocrit 24.2 % (42.0-52.0); Hemoglobin 7.5 g/dl (14.0-18.0); Imm Gran Abs Auto 0.64 X10*3/uL (0.00-0.03); Imm Gran Pct Auto 2.6 % (0.0-0.4); Lymphocytes Absolute Auto 0.2 X10*3/uL (1.2-4.9); Lymphocytes Percent Auto 0.9 % (20-40); MANUAL DIFF FLAG SCAN; Mean Corpuscular Hemoglobin 24.4 pg (27.0-33.0); Mean Corpuscular Volume 78.8 fL (80.0-98.0); Mean Platelet Volume 11.1 fL (9.4-12.4); NRBC Pct Auto 0.7 /100WBC (0.0-0.2); Neutrophils Absolute Auto 22.6 x10*3/uL (2.0-8.3); Neutrophils Percent Auto 92.4 % (45-73); Platelet Count 254 X10*3/uL (160-400); Red Blood Count 3.07 X10*6/uL (4.60-5.80); Red Cell Distribution Width 17.2 % (11.0-16.0); SCAN SMEAR FLAG 1; White Blood Count 24.5 X10*3/uL (4.8-10.8)
--- NOTE | 2024-02-04 22:12 | P.EN_ITS ---
Event Note Date of Service: 02/04/24 Event Note: 1:39 AM - Contacted by nursing to notify patient has worsening shortness on breath. Patient evaluated. He looked in respiratory distress and using accessory muscles. Auscultation remarkable for poor inspiratory effort and decreased breaths sounds without crackles. His oxygen saturation remained normal. He was started on high-flow oxygen, Solu-Medrol 125 mg IV and Lasix 20 mg IV. 2:00 AM - CXR was obtained which showed similar changes when compared with pr ior. Patient persisted with severe respiratory distress despite receiving above tx. ICU provider contacted and ordered additional 20 mg IV stat. 2:17 AM - Blood workup stat obtained and was remarkable for severe metabolic acidosis secondary to lactic acidosis. 2:33 AM - ICU physician, Dr. Hobbs was contacted and accepted patient. 2:52 AM - Blood pressure dropped to 87/69. NS 500 mL order stat. Treatment with bicarb amps given by ED provider. Time Spent With Patient Time: Total time managing care of this patient today ____ minutes.
[2024-02-04 22:16] LABS: Venous Blood Gas Refer to POC result
[2024-02-04 22:16] LABS: VBG Base Excess -11.9 mmol/L; VBG HCO3 13 mmol/L (22-26); VBG pCO2 30 mmHg; VBG pH 7.26 (7.32-7.43); VBG pO2 88 mmHg
[2024-02-04] MEDS: Amiodarone/Dextrose 150 MG/100 ML PLAST..BAG 600 MG IV (22:23)
[2024-02-04] MEDS: Sodium Bicarbonate 8.4% 50 MEQ/50 ML VIAL IVPUSH ×2 (22:25→22:45)
[2024-02-04] MEDS: Amiodarone HCL 900 MG in 0.9 % Sodium Chloride 500 ML 34.53 MG IVCONT (22:27)
[2024-02-04 22:30] LABS: Alanine Aminotransferase 1195 U/L (0-40); Alkaline Phosphatase 72 U/L (39-117); Anion Gap 26 (12-20); Aspartate Amino Transferase 3103 U/L (5-37); Bilirubin Total 1.4 mg/dL (0.0-1.0); Blood Urea Nitrogen 22 mg/dL (9-16); Calcium 9.7 mg/dL (8.4-10.2); Carbon Dioxide 15 mmol/L (22-29); Chloride 106 mmol/L (96-108); Creatinine Clr Calc Pharmacy 35.5; Estimated Glomerular Filt Rate > 60; Glucose Random 202 mg/dL (60-115); Phosphorus 5.9 mg/dL (2.7-4.5); Potassium 5.3 mmol/L (3.3-5.1); Sodium 142 mmol/L (135-145); Total Protein 6.1 g/dL (6.5-8.0)
[2024-02-04 22:33] LABS: B Type Natriuretic Peptide 2584 pg/mL (<100)
[2024-02-04 22:38] LABS: Troponin-I High Sensitivity 2397.5 ng/L (<3.5-35.0)
[2024-02-04 22:42] LABS: SLIDE REVIEW VERIFIED
[2024-02-04 22:56] LABS: Lactic Acid 12.1 mmol/L (0.5-2.0)
--- NOTE | 2024-02-04 23:08 | PM.CCN ---
Critical Care Event Note Summary Date of Service: 02/04/24 Code activated: No Narrative: Overnight, patient became bradycardic, and later developed wide complex tachycardia with a pulse, amiodarone bolus and drip initiate. ?Laboratory data significant for worsening metabolic acidosis, elevated to 12.1 from 9, troponin of 2397, AST 3103, ALT a 1195. ?EKG with no ST elevation. ?Patient with minimal urine output. Requiring multiple pushes of bicarb. ?Family informed of patient's change in clinical status and poor prognosis. ?Patient's and grandson came to bedside, and changed code status to DNR This case had a high probability of a clinically significant, sudden, or life threatening deterioration of this patient's condition which required my full and direct attention, intervention and personal management. Critical Care Time (minutes): 60
[2024-02-04] MEDS: Norepinephrine Bitartrate/D5W 8 MG/250 ML PLAST..BAG 48.98 MG IV (23:33)
[2024-02-05] VITALS (15 sets, daily range): BP systolic 0–166; BP diastolic 0–118; PULSE 0–176; RESP 17–20; TEMP 35.1–36.3; O2SAT 93–98
[2024-02-05 00:41] LABS: Reflex Lactate? Lactic Acid Added
[2024-02-05] MEDS: Sodium Bicarbonate 8.4% 50 MEQ/50 ML SYRINGE IVPUSH (01:30)
[2024-02-05] MEDS: Phenylephrine HCL 20 MG in 0.9 % Sodium Chloride 250 ML 17.96 MG IVCONT (01:52)
[2024-02-05] MEDS: Norepinephrine Bitartrate/D5W 8 MG/250 ML PLAST..BAG 89.06 MG IV ×2 (03:00→04:11)
[2024-02-05 03:10] LABS: ~Lactic Acid-LAB USE ONLY 14.9 mmol/L (0.5-2.0)
[2024-02-05 03:36] LABS: Reflex Lactate? 2 Y
[2024-02-05] MEDS: Albumin Human 25 % 100 ML IV (03:55)
[2024-02-05] MEDS: Phenylephrine HCL 20 MG in 0.9 % Sodium Chloride 250 ML 215.46 MG IVCONT (04:03)
--- NOTE | 2024-02-05 05:05 | PM.EVENT ---
Documented by User: Earnest Carranza NP 02/05/24 05:09 Event Note Date of Service: 02/05/24 Event Note: Deterioration of patient's clinical status over night, patient requiring max support with pressors and profound acidemia.? Code status was changed to DNR earlier.,? Family was at bedside for some of the night. Patient asystole at 0500.? On my assessment, the patient had absent peripheral pulses.? Pupils fixed and dilated.? Absent heart sounds? and no spontaneous breathing.? ?No corneal or gag reflex. Official time of 0500.?Not a edical exam candidate.? Organ donation was notified by nursing.? Attending Dr Hobbs notified. I attempted to call patient and grandson to report passing. Voicemail left to call back Time Spent With Patient Time: Total time managing care of this patient today ____ minutes. Documented by User: Matteo Hobbs MD 02/05/24 10:01 Event Note Date of Service: 02/05/24
--- NOTE | 2024-02-05 07:14 | PC.NURSE ---
Upon initial assessment- pt intubated/sedated. On Propofol and Levophed gtts. EKG obtained for possible ST elevation noted on tele- see report. HR 110-130s. Lungs dim throughout with inspiratory wheezing. On 30% FiO2, sating >90%. OGT clamped. Hypoactive BS. Coude catheter in place with minimal output- HOUSEKEEPING ROOM INSPECTOR aware. At approximately 2200 pt briefly bradycardic, as low as 69. Approx 2210 pt developed wide complex tachycardia with a pulse. Amiodarone bolus and gtt given as ordered. Labs obtained- see EMR. Multiple amps of bicarb given as ordered. FiO2 increased to 100% to achieve O2 sat of >90%. HOUSEKEEPING ROOM INSPECTOR notified family of change in clinical status. and grandson came to bedside, code status changed to DNR. Approx 0130 pt becoming increasingly hypotensive. Shiv gtt initated. Levo and Shiv titrated per JAN. Amio gtt D/Tang per HOUSEKEEPING ROOM INSPECTOR. 0500 pt asystole, and pronounced by Earnest Carranza HOUSEKEEPING ROOM INSPECTOR. HOUSEKEEPING ROOM INSPECTOR attempted to call family with no answer at this time. 05 Spoke with Andrez at [facility], pt declined. Ref# [id number] Postmortem care provided.
--- NOTE | 2024-02-05 10:01 | P.DN_ITS ---
Discharge Sum: Prov Provider Primary care physician: Lis Clancy MD Discharge Sum: Diag Contributing Factors (1) Metabolic acidosis: (2) Elevated troponin: (3) Acute hypoxemic respiratory failure: (4) Ischemic hepatitis: (5) Acute kidney injury: (6) Shock: (7) Acute ischemic colitis: Discharge Sum: Summary Date and Time Date of admission: 02/02/24 05:07 Date of : 02/05/24 Time of : 05:00 Summary Details: 78-year-old gentleman history advanced COPD, SIADH, hypertension admitted on 02/02/2024 with dyspnea and treated for empiric pneumonia/COPD exacerbation with hospital course complicated by development of acute lactic metabolic acidosis requiring ventilatory support for respiratory compensation. Patient with progressive lactic acidosis with CT abdomen demonstrating a burden atheroscler otic disease. Empirically treated with broad-spectrum antibiotics. However, patient with progressive lactic acidosis and shock refractory to pressor support. Discussion held with patient's /grandson and poor clinical prognosis explained. Patient's family elected to switch code status to do not resuscitate. Patient continued on maximum ventilatory and pressor support with cardiac rhythm deterioration to bradycardia and then asystole on 02/05/2024 at 05:00. Family notified. Additional Data Attending physician: Matteo Hobbs MD
== END 2024-02-05 09:00 | disposition expired | DRG 871 ==
LOC: HO.ED 03:52 → HO.EDOVER 05:15 → HO.IMC 17:23 → HO.ICU 02-04 03:52
PROVIDERS: Registered Nurse Community Health; Student in an Organized Health Care Education/Training Program; Admitting Provider Internal Medicine; Emergency Provider Student in an Organized Health Care Education/Training Program; PCP Internal Medicine; Visit Provider Internal Medicine Pulmonary Disease
DX: A41.9 Sepsis, unspecified organism (principal); J18.9 Pneumonia, unspecified organism; R65.21 Severe sepsis with septic shock; J44.0 Chronic obstructive pulmonary disease with (acute) lower respiratory infection; J44.1 Chronic obstructive pulmonary disease with (acute) exacerbation; Z66 Do not resuscitate; R68.0 Hypothermia, not associated with low environmental temperature; E83.42 Hypomagnesemia; D50.9 Iron deficiency anemia, unspecified; R54 Age-related physical debility; E88.A Wasting disease (syndrome) due to underlying condition; Z20.822 Contact with and (suspected) exposure to COVID-19; Z87.891 Personal history of nicotine dependence; Z86.73 Personal history of transient ischemic attack (TIA), and cerebral infarction without residual deficits; Z79.02 Long term (current) use of antithrombotics/antiplatelets; Z79.52 Long term (current) use of systemic steroids; Z79.899 Other long term (current) drug therapy
CPT/HCPCS: 0241U; 36415; 71045; 71250; 74174; 80048; 80053; 80076; 82272; 82803; 82947; 83540; 83605; 83735; 83880; 84100; 84484; 85025; 85027; 85610; 86850; 86900; 86901; 86923; 87040; 93005; 94002; 94003; 94640; 94799; 99285; C1758; C9113; J0171; J0282; J0283; J1940; J2270; J2371; J2543; J2704; J2920; J2930; J3371; J3475; J7120; P9016; P9047; Q9967

== ENCOUNTER → 2024-02-02 02:33 | Outpatient (BNV) | payer MEDICARE, SELFPAY | PROVIDERS: Admitting Provider Internal Medicine; Emergency Provider Student in an Organized Health Care Education/Training Program; PCP Internal Medicine; Visit Provider Internal Medicine Cardiovascular Disease | DX: R00.0 Tachycardia, unspecified (principal); I95.9 Hypotension, unspecified | CPT/HCPCS: 93010 ==

== ENCOUNTER 2024-02-02 05:07 | Outpatient (BNV) | payer MEDICARE, SELFPAY | END 2024-02-04 03:56 | PROVIDERS: Admitting Provider Internal Medicine; Emergency Provider Student in an Organized Health Care Education/Training Program; PCP Internal Medicine; Visit Provider Internal Medicine Cardiovascular Disease | DX: R00.0 Tachycardia, unspecified (principal); I49.1 Atrial premature depolarization | CPT/HCPCS: 93010 ==

== ENCOUNTER → 2024-02-02 05:07 | Outpatient (BNV) | payer MEDICARE, SELFPAY | PROVIDERS: Admitting Provider Internal Medicine; Emergency Provider Student in an Organized Health Care Education/Training Program; PCP Internal Medicine; Visit Provider Internal Medicine | DX: J96.01 Acute respiratory failure with hypoxia (principal); A41.9 Sepsis, unspecified organism; R65.20 Severe sepsis without septic shock; J18.9 Pneumonia, unspecified organism; J44.1 Chronic obstructive pulmonary disease with (acute) exacerbation | CPT/HCPCS: 99223; 99233; 99499 ==

== ENCOUNTER → 2024-02-02 05:07 | Outpatient (BNV) | payer MEDICARE, SELFPAY | PROVIDERS: Admitting Provider Internal Medicine; Emergency Provider Student in an Organized Health Care Education/Training Program; PCP Internal Medicine; Visit Provider Registered Nurse Community Health | DX: A41.9 Sepsis, unspecified organism (principal); R65.21 Severe sepsis with septic shock; E87.20 Acidosis, unspecified; R79.89 Other specified abnormal findings of blood chemistry; J96.01 Acute respiratory failure with hypoxia; J18.9 Pneumonia, unspecified organism | CPT/HCPCS: 31500; 36556; 99291; 99292; 99499 ==

== ENCOUNTER → 2024-02-02 05:07 | Outpatient (BNV) | payer MEDICARE, SELFPAY | PROVIDERS: Admitting Provider Internal Medicine; Emergency Provider Student in an Organized Health Care Education/Training Program; PCP Internal Medicine; Visit Provider Internal Medicine Pulmonary Disease | DX: E87.21 Acute metabolic acidosis (principal); R79.89 Other specified abnormal findings of blood chemistry; J96.01 Acute respiratory failure with hypoxia; K72.00 Acute and subacute hepatic failure without coma; N17.9 Acute kidney failure, unspecified; R57.9 Shock, unspecified; K55.039 Acute (reversible) ischemia of large intestine, extent unspecified | CPT/HCPCS: 99238 ==